=== PATIENT | male | born 1945 | race Caucasian/White ===

== ENCOUNTER → 2016-12-13 | Outpatient (CLI) | payer MEDICARE, BC ==
[2016-12-13 12:02] LABS: Anion Gap 7 mmol/L; Blood Urea Nitrogen 11 mg/dL (9-20); Calcium 10.2 mg/dL (8.4-10.2); Carbon Dioxide 29 mmol/L (22-30); Chloride 108 mmol/L (98-107); Glucose 124 mg/dL (74-99); Lithium 1.1 mmol/L; Non-African American GFR(MDRD) >60 (>60 ml/min/1.73 sqM); Phosphorous 3.1 mg/dL (2.5-4.5); Sodium 144 mmol/L (137-145)
== END | disposition home or self-care (01) ==
LOC: LABWHC1 06:41
PROVIDERS: ATTEND Psychiatry & Neurology Psychiatry
DX: E78.5 Hyperlipidemia, unspecified (principal); G40.909 Epilepsy, unspecified, not intractable, without status epilepticus; E03.9 Hypothyroidism, unspecified; F31.89 Other bipolar disorder
CPT/HCPCS: 36415; 80069; 80178; 84439; 84443

== ENCOUNTER → 2017-04-08 | Outpatient (CLI) | payer MEDICARE, BC ==
--- NOTE | 2017-04-08 11:18 | XR ---
EXAMINATION TYPE: XR chest 2V DATE OF EXAM: 04/08/2017 COMPARISON: NONE INDICATION: Nicotine dependence, DrAbdoul heard wheezing TECHNIQUE: Frontal and lateral views of the chest are obtained. FINDINGS: The heart size is normal. The pulmonary vasculature is normal. The lungs are clear. There is hyperinflation flattening the diaphragms and increased retrosternal ai rspace compatible with emphysematous change. IMPRESSION: 1. Findings suggestive for COPD. 2. No acute pulmonary process.
== END | disposition home or self-care (01) ==
LOC: RADXRMAIN 10:50
PROVIDERS: ATTEND Physician Assistant
DX: F17.200 Nicotine dependence, unspecified, uncomplicated (principal)
CPT/HCPCS: 71020

== ENCOUNTER 2017-04-11 09:04 | Emergency (ER) | payer MEDICARE, BC ==
[2017-04-11 09:20] VITALS: RESP 18; TEMP 96.9
[2017-04-11 10:51] LABS: Appearance,Urine Clear (Clear); Basophils # (A) 0.1 k/uL (0-0.2); Basophils % (A) 1 %; Bilirubin,Urine Negative (Negative); CH 32.7; CHCM 35.4; Eosinophils # (A) 0.2 k/uL (0-0.7); Eosinophils % (A) 3 %; Glucose,Urine (UA) Negative (Negative); HCT 47.8 % (39.0-53.0); HDW 2.66; HGB 16.3 gm/dL (13.0-17.5); Ketones,Urine Negative (Negative); Leukocyte Esterase,Urine Negative (Negative); Luc # (Auto) 0.15; Luc % (Auto) 2; Lymphocytes # (A) 1.8 k/uL (1.0-4.8); Lymphocytes % (A) 25 %; MCH 31.6 pg (25.0-35.0); MCHC 34.1 g/dL (31.0-37.0); MCV 92.8 fL (80.0-100.0); Mean Platelet Volume 9.9; Monocytes # (A) 0.5 k/uL (0-1.0); Monocytes % (A) 7 %; Neutrophils # (A) 4.5 k/uL (1.3-7.7); Neutrophils % (A) 62 %; Nitrite,Urine Negative (Negative); PH, Urine 5.5 (5.0-8.0); Protein,Urine Negative (Negative); RBC 5.15 m/uL (4.30-5.90); RDW 13.4 % (11.5-15.5); Specific Gravity,Urine 1.011 (1.001-1.035); UA Billing (MACRO vs. MICRO) CHEM; Urobilinogen,Urine <2.0 mg/dL (<2.0); WBC 7.2 k/uL (3.8-10.6); WBC (Perox) 6.56
[2017-04-11 11:02] LABS: ALT 33 U/L (21-72); AST 21 U/L (17-59); Alkaline Phosphatase 53 U/L (38-126); Anion Gap 11 mmol/L; Blood Urea Nitrogen 12 mg/dL (9-20); Carbon Dioxide 20 mmol/L (22-30); Chloride 110 mmol/L (98-107); Glucose 72 mg/dL (74-99); Non-African American GFR(MDRD) >60 (>60 ml/min/1.73 sqM); Potassium 4.4 mmol/L (3.5-5.1); Sodium 141 mmol/L (137-145); Total Bilirubin 0.5 mg/dL (0.2-1.3); Total Protein 7.2 g/dL (6.3-8.2)
--- NOTE | 2017-04-11 11:21 | ED ---
General Adult HPI - General Chief complaint: Psychiatric Symptoms Stated complaint: unable to sleep x 6 days, body aches Time Seen by Provider: 04/11/17 09:41 Source: patient, family Mode of arrival: ambulatory Limitations: no limitations - History of Present Illness Initial comments: 71-year-old male with history of depression presents for evaluation of inability to sleep, depression, and suicidal ideation. Patient does have remote history of EtOH, he was diagnosed with diabetes and was told he cannot drink. This initially began in his depression symptoms. He's had these for years. Over the past 1 week he's had no more the one hour sleep daily. His been taking his medications as prescribed. He also reports suicidal ideation. There is no plan at this time. - Related Data Home Medications Medication Instructions Recorded Confirmed DULoxetine HCL [Cymbalta] 30 mg PO DAILY 04/11/17 04/11/17 [place] Carbonate 300 mg PO HS 04/11/17 04/11/17 Suvorexant [Belsomra] 15 mg PO HS 04/11/17 04/11/17 clonazePAM [KlonoPIN] 1 mg PO HS 04/11/17 04/11/17 glipiZIDE [Glucotrol] 10 mg PO DAILY 04/11/17 04/11/17 metFORMIN HCL [Glucophage] 850 mg PO BID 04/11/17 04/11/17 Allergies Allergy/AdvReac Type Severity Reaction Status Date / Time No Known Allergies Allergy Verified 04/11/17 09:46 Review of Systems ROS Statement: Those systems with pertinent positive or pertinent negative responses have been documented in the HPI. ROS Other: All systems not noted in ROS Statement are negative. Past Medical History Past Medical History: Diabetes Mellitus History of Any Multi-Drug Resistant Organisms: None Reported Past Surgical History: No Surgical Hx Reported Past Psychological History: Depression Smoking Status: Current every day smoker Past Alcohol Use History: None Reported Past Drug Use History: None Reported General Exam Limitations: no limitations General appearance: alert, in no apparent distress Head exam: Present: atraumatic, normocephalic Eye exam: Present: normal appearance, PERRL, EOMI ENT exam: Present: normal exam Neck exam: Present: normal inspection. Absent: tenderness, meningismus Respiratory exam: Present: normal lung sounds bilaterally. Absent: respiratory distress Cardiovascular Exam: Present: regular rate, normal rhythm GI/Abdominal exam: Present: soft. Absent: distended, tenderness Extremities exam: Present: normal inspection, full ROM, normal capillary refill. Absent: pedal edema Back exam: Present: normal inspection Neurological exam: Present: alert, oriented X3, CN II-XII intact. Absent: motor sensory deficit Psychiatric exam: Present: normal affect, depressed, suicidal ideation Skin exam: Present: warm, dry. Absent: cyanosis, diaphoretic Course Vital Signs 04/11/17 04/11/17 09:16 11:02 Temperature 96.9 F L Pulse Rate 72 64 Respiratory 18 18 Rate Blood Pressure 158/69 127/61 O2 Sat by Pulse 96 99 Oximetry - Reevaluation(s) Reevaluation #1: 04/11/17 11:21 Patient is currently medically cleared awaiting EPS evaluation. Medical Decision Making - Medical Decision Making 71-year-old male presented for evaluation depression, suicidal ideation, decreased ability to sleep. Patient was evaluated by EPS. He does not meet inpatient criteria. On reevaluation the patient is denying suicidal ideation. States he just wants to sleep. He was producing taking clonazepam and trazodone. These medications were adjusted. His been sleeping much less. Patient does have psychiatric outpatient follow-up. He will continue his clonazepam and trazodone for sleep. He will follow-up with both his primary care physician and his his psychiatrist. Patient and his brother are agreeable with this plan. - Lab Data Result diagrams: 04/11/17 10:39 04/11/17 10:39 Lab Results 04/11/17 04/11/17 04/11/17 Range/Units 10:39 10:39 10:39 WBC 7.2 (3.8-10.6) k/uL RBC 5.15 (4.30-5.90) m/uL Hgb 16.3 (13.0-17.5) gm/dL Hct 47.8 (39.0-53.0) % MCV 92.8 (80.0-100.0) fL MCH 31.6 (25.0-35.0) pg MCHC 34.1 (31.0-37.0) g/dL RDW 13.4 (11.5-15.5) % Plt Count 198 (150-450) k/uL Neutrophils % 62 % Lymphocytes % 25 % Monocytes % 7 % Eosinophils % 3 % Basophils % 1 % Neutrophils # 4.5 (1.3-7.7) k/uL Lymphocytes # 1.8 (1.0-4.8) k/uL Monocytes # 0.5 (0-1.0) k/uL Eosinophils # 0.2 (0-0.7) k/uL Basophils # 0.1 (0-0.2) k/uL Sodium 141 (137-145) mmol/L Potassium 4.4 (3.5-5.1) mmol/L Chloride 110 H (98-107) mmol/L Carbon Dioxide 20 L (22-30) mmol/L Anion Gap 11 mmol/L BUN 12 (9-20) mg/dL Creatinine 0.76 (0.66-1.25) mg/dL Est GFR (MDRD) Af Amer >60 (>60 ml/min/1.73 sqM) Est GFR (MDRD) Non-Af >60 (>60 ml/min/1.73 sqM) Glucose 72 L (74-99) mg/dL Calcium 10.0 (8.4-10.2) mg/dL Total Bilirubin 0.5 (0.2-1.3) mg/dL AST 21 (17-59) U/L ALT 33 (21-72) U/L Alkaline Phosphatase 53 (38-126) U/L Total Protein 7.2 (6.3-8.2) g/dL Albumin 4.5 (3.5-5.0) g/dL Urine Color Yellow Urine Appearance Clear (Clear) Urine pH 5.5 (5.0-8.0) Ur Specific [place] 1.011 (1.001-1.035) Urine Protein Negative (Negative) Urine Glucose (UA) Negative (Negative) Urine Ketones Negative (Negative) Urine Blood Negative (Negative) Urine Nitrite Negative (Negative) Urine Bilirubin Negative (Negative) Urine Urobilinogen <2.0 (<2.0) mg/dL Ur Leukocyte Esterase Negative (Negative) Urine Opiates Screen Detected H (NotDetected) Ur Oxycodone Screen Not Detected (NotDetected) Urine Methadone Screen Not Detected (NotDetected) Ur Propoxyphene Screen Not Detected (NotDetected) Ur Barbiturates Screen Not Detected (NotDetected) U Tricyclic Antidepress Not Detected (NotDetected) Ur Phencyclidine Scrn Not Detected (NotDetected) Ur Amphetamines Screen Not Detected (NotDetected) U Methamphetamines Scrn Not Detected (NotDetected) U Benzodiazepines Scrn Not Detected (NotDetected) Urine Cocaine Screen Not Detected (NotDetected) U Marijuana (THC) Screen Not Detected (NotDetected) Disposition Clinical Impression: Depression Disposition: HOME SELF-CARE Condition: Stable Referrals: Alex Hardin MD [Primary Care Provider] - 1-2 days Time of Disposition: 13:54
[2017-04-11 13:49] VITALS: BP 161/70; PULSE 69
== END 2017-04-11 14:11 | disposition home or self-care (01) ==
LOC: EC 09:04
DX: F32.9 Major depressive disorder, single episode, unspecified (principal); E11.9 Type 2 diabetes mellitus without complications; F17.200 Nicotine dependence, unspecified, uncomplicated; Z79.84 Long term (current) use of oral hypoglycemic drugs; Z79.899 Other long term (current) drug therapy
CPT/HCPCS: 36415; 80053; 80306; 81003; 82075; 85025; 99284

== ENCOUNTER → 2017-10-01 | Outpatient (CLI) | payer MEDICARE, BC ==
[2017-10-01 16:53] LABS: Albumin 4.3 g/dL (3.5-5.0); Anion Gap 11 mmol/L; Blood Urea Nitrogen 17 mg/dL (9-20); Calcium 10.4 mg/dL (8.4-10.2); Carbon Dioxide 27 mmol/L (22-30); Chloride 107 mmol/L (98-107); Glucose 118 mg/dL (74-99); Lithium 0.9 mmol/L; Phosphorus 3.4 mg/dL (2.5-4.5); Potassium 5.1 mmol/L (3.5-5.1); Sodium 145 mmol/L (137-145)
[2017-10-01 17:07] LABS: T4, Free (Free Thyroxine) 0.88 ng/dL (0.78-2.19)
== END | disposition home or self-care (01) ==
LOC: LABWHC1 15:41
PROVIDERS: ATTEND Psychiatry & Neurology Psychiatry
DX: F33.1 Major depressive disorder, recurrent, moderate (principal); Z79.899 Other long term (current) drug therapy
CPT/HCPCS: 36415; 80069; 80178; 84439; 84443

== ENCOUNTER 2019-12-15 09:40 | Inpatient (IN) | payer MEDICARE ==
[2019-12-15] MEDS ORDERED: SODIUM CHLORIDE 0.9% 1,000 ML IV ONE (09:45)
--- NOTE | 2019-12-15 09:58 | ED ---
General Adult HPI - General Stated complaint: Altered Mental Status Time Seen by Provider: 12/15/19 09:45 Source: patient, RN notes reviewed, old records reviewed - History of Present Illness Initial comments: 74-year-old male history of bipolar depression presenting for increased confusion and altered mental status. According to the patient's brother and EMS he symptoms began approximately 24 hours ago. He has not been eating or drinking well for the past several days. History limited secondary to patient's mental status as well as a language barrier. Patient able to answer simple questions and follows some commands. He is denying any pain. There is no reported history of vomiting or diarrhea, no reported fever. - Related Data Home Medications Medication Instructions Recorded Confirmed DULoxetine HCL [Cymbalta] 30 mg PO DAILY 04/11/17 04/11/17 [place] Carbonate 300 mg PO HS 04/11/17 04/11/17 Suvorexant [Belsomra] 15 mg PO HS 04/11/17 04/11/17 clonazePAM [KlonoPIN] 1 mg PO HS 04/11/17 04/11/17 glipiZIDE [Glucotrol] 10 mg PO DAILY 04/11/17 04/11/17 metFORMIN HCL [Glucophage] 850 mg PO BID 04/11/17 04/11/17 Allergies Allergy/AdvReac Type Severity Reaction Status Date / Time No Known Allergies Allergy Verified 04/11/17 09:46 Review of Systems ROS Statement: Those systems with pertinent positive or pertinent negative responses have been documented in the HPI. ROS Other: All systems not noted in ROS Statement are negative. Limitations: ROS unobtainable due to patients medical condition Past Medical History Past Medical History: Diabetes Mellitus History of Any Multi-Drug Resistant Organisms: None Reported Past Surgical History: No Surgical Hx Reported Past Psychological History: Depression Smoking Status: Current every day smoker Past Alcohol Use History: None Reported Past Drug Use History: None Reported General Exam General appearance: in no apparent distress, lethargic Head exam: Present: atraumatic, normocephalic Eye exam: Present: normal appearance, PERRL, EOMI. Absent: scleral icterus, nystagmus ENT exam: Present: mucous membranes dry Neck exam: Present: full ROM. Absent: meningismus Respiratory exam: Present: normal lung sounds bilaterally. Absent: respiratory distress, wheezes Cardiovascular Exam: Present: regular rate. Absent: normal rhythm, bradycardia, tachycardia GI/Abdominal exam: Present: soft. Absent: distended, tenderness, guarding, rebound Extremities exam: Present: normal inspection, normal capillary refill. Absent: pedal edema Neurological exam: Absent: oriented X3, motor sensory deficit (Patient has normal domestic housekeeper strength bilaterally, he was ambulatory on scene by EMS, there is no apparent focal neurological findings.) Course Vital Signs 12/15/19 12/15/19 09:52 11:17 Temperature 98.9 F Pulse Rate 64 Respiratory 20 20 Rate Blood Pressure 153/62 120/66 O2 Sat by Pulse 98 100 Oximetry EKG Findings - EKG Comments: EKG Findings:: EKG: Sinus bradycardia, rate of 58, SD interval 188, QRS duration 82, QTC 422, no ST segment elevation. Medical Decision Making - Medical Decision Making 74-year-old male with 24 hours of altered mental status per patient is somewhat agitated, confused, with the addition of a language barrier. Unknown patient's baseline. He has a nonfocal exam moving all extremities. Head CT is performed which is negative for acute intracranial hemorrhage or mass effect. He has bilateral hygromas. Patient has normal CBC, normal electrolytes, normal kidney function, mild lactic acidosis of 2.4, ketones in the urine this is hemorrhagic sample this was on straight cath in the emergency department. No signs of i nfection. Chest x-ray showing COPD. Patient will be admitted for close monitoring, further evaluation. Case discussed with Dr. Blancas who will admit. - Lab Data Result diagrams: 12/15/19 09:50 12/15/19 09:50 Lab Results 12/15/19 12/15/19 12/15/19 Range/Units 09:50 09:50 09:50 WBC 6.1 (3.8-10.6) k/uL RBC 4.34 (4.30-5.90) m/uL Hgb 14.0 (13.0-17.5) gm/dL Hct 42.3 (39.0-53.0) % MCV 97.5 (80.0-100.0) fL MCH 32.3 (25.0-35.0) pg MCHC 33.1 (31.0-37.0) g/dL RDW 12.3 (11.5-15.5) % Plt Count 136 L (150-450) k/uL Neutrophils % 80 % Lymphocytes % 13 % Monocytes % 6 % Eosinophils % 1 % Basophils % 0 % Neutrophils # 4.9 (1.3-7.7) k/uL Lymphocytes # 0.8 L (1.0-4.8) k/uL Monocytes # 0.4 (0-1.0) k/uL Eosinophils # 0.0 (0-0.7) k/uL Basophils # 0.0 (0-0.2) k/uL Manual Slide Review Performed Large Platelets Present PT 11.2 (9.0-12.0) sec INR 1.1 (<1.2) APTT 22.8 (22.0-30.0) sec VBG pH (7.31-7.41) VBG pCO2 (37-51) mmHg VBG HCO3 (24-28) mmol/L Sodium 140 (137-145) mmol/L Potassium 4.6 (3.5-5.1) mmol/L Chloride 107 (98-107) mmol/L Carbon Dioxide 27 (22-30) mmol/L Anion Gap 6 mmol/L BUN 20 (9-20) mg/dL Creatinine 1.02 (0.66-1.25) mg/dL Est GFR (CKD-EPI)AfAm 82 (>60 ml/min/1.73 sqM) Est GFR (CKD-EPI)NonAf 71 (>60 ml/min/1.73 sqM) Glucose 150 H (74-99) mg/dL Plasma Lactic Acid [place] (0.7-2.0) mmol/L Calcium 10.2 (8.4-10.2) mg/dL Magnesium 1.8 (1.6-2.3) mg/dL Total Bilirubin 0.8 (0.2-1.3) mg/dL AST 17 (17-59) U/L ALT 14 (4-49) U/L Alkaline Phosphatase 54 (38-126) U/L Ammonia (<30) umol/L Troponin I (0.000-0.034) ng/mL Total Protein 6.8 (6.3-8.2) g/dL Albumin 4.2 (3.5-5.0) g/dL Urine Color Urine Appearance (Clear) Urine pH (5.0-8.0) Ur Specific [place] (1.001-1.035) Urine Protein (Negative) Urine Glucose (UA) (Negative) Urine Ketones (Negative) Urine Blood (Negative) Urine Nitrite (Negative) Urine Bilirubin (Negative) Urine Urobilinogen (<2.0) mg/dL Ur Leukocyte Esterase (Negative) Urine RBC (0-5) /hpf Urine WBC (0-5) /hpf Ur Squamous Epith Cells (0-4) /hpf Urine Bacteria (None) /hpf Urine Mucus (None) /hpf Urine Opiates Screen (NotDetected) Ur Oxycodone Screen (NotDetected) Urine Methadone Screen (NotDetected) Ur Propoxyphene Screen (NotDetected) Ur Barbiturates Screen (NotDetected) U Tricyclic Antidepress (NotDetected) Ur Phencyclidine Scrn (NotDetected) Ur Amphetamines Screen (NotDetected) U Methamphetamines Scrn (NotDetected) U Benzodiazepines Scrn (NotDetected) [place] 0.8 mmol/L Urine Cocaine Screen (NotDetected) U Marijuana (THC) Screen (NotDetected) Serum Alcohol <10 mg/dL Coronavirus (PCR) (Not Detectd) 12/15/19 12/15/19 12/15/19 Range/Units 09:50 09:50 09:50 WBC (3.8-10.6) k/uL RBC (4.30-5.90) m/uL Hgb (13.0-17.5) gm/dL Hct (39.0-53.0) % MCV (80.0-100.0) fL MCH (25.0-35.0) pg MCHC (31.0-37.0) g/dL RDW (11.5-15.5) % Plt Count (150-450) k/uL Neutrophils % % Lymphocytes % % Monocytes % % Eosinophils % % Basophils % % Neutrophils # (1.3-7.7) k/uL Lymphocytes # (1.0-4.8) k/uL Monocytes # (0-1.0) k/uL Eosinophils # (0-0.7) k/uL Basophils # (0-0.2) k/uL Manual Slide Review Large Platelets PT (9.0-12.0) sec INR (<1.2) APTT (22.0-30.0) sec VBG pH (7.31-7.41) VBG pCO2 (37-51) mmHg VBG HCO3 (24-28) mmol/L Sodium (137-145) mmol/L Potassium (3.5-5.1) mmol/L Chloride (98-107) mmol/L Carbon Dioxide (22-30) mmol/L Anion Gap mmol/L BUN (9-20) mg/dL Creatinine (0.66-1.25) mg/dL Est GFR (CKD-EPI)AfAm (>60 ml/min/1.73 sqM) Est GFR (CKD-EPI)NonAf (>60 ml/min/1.73 sqM) Glucose (74-99) mg/dL Plasma Lactic Acid [place] 2.4 H* (0.7-2.0) mmol/L Calcium (8.4-10.2) mg/dL Magnesium (1.6-2.3) mg/dL Total Bilirubin (0.2-1.3) mg/dL AST (17-59) U/L ALT (4-49) U/L Alkaline Phosphatase (38-126) U/L Ammonia <9 (<30) umol/L Troponin I <0.012 (0.000-0.034) ng/mL Total Protein (6.3-8.2) g/dL Albumin (3.5-5.0) g/dL Urine Color Urine Appearance (Clear) Urine pH (5.0-8.0) Ur Specific [place] (1.001-1.035) Urine Protein (Negative) Urine Glucose (UA) (Negative) Urine Ketones (Negative) Urine Blood (Negative) Urine Nitrite (Negative) Urine Bilirubin (Negative) Urine Urobilinogen (<2.0) mg/dL Ur Leukocyte Esterase (Negative) Urine RBC (0-5) /hpf Urine WBC (0-5) /hpf Ur Squamous Epith Cells (0-4) /hpf Urine Bacteria (None) /hpf Urine Mucus (None) /hpf Urine Opiates Screen (NotDetected) Ur Oxycodone Screen (NotDetected) Urine Methadone Screen (NotDetected) Ur Propoxyphene Screen (NotDetected) Ur Barbiturates Screen (NotDetected) U Tricyclic Antidepress (NotDetected) Ur Phencyclidine Scrn (NotDetected) Ur Amphetamines Screen (NotDetected) U Methamphetamines Scrn (NotDetected) U Benzodiazepines Scrn (NotDetected) [place] mmol/L Urine Cocaine Screen (NotDetected) U Marijuana (THC) Screen (NotDetected) Serum Alcohol mg/dL Coronavirus (PCR) Not Detected (Not Detectd) 12/15/19 12/15/19 Range/Units 09:50 10:15 WBC (3.8-10.6) k/uL RBC (4.30-5.90) m/uL Hgb (13.0-17.5) gm/dL Hct (39.0-53.0) % MCV (80.0-100.0) fL MCH (25.0-35.0) pg MCHC (31.0-37.0) g/dL RDW (11.5-15.5) % Plt Count (150-450) k/uL Neutrophils % % Lymphocytes % % Monocytes % % Eosinophils % % Basophils % % Neutrophils # (1.3-7.7) k/uL Lymphocytes # (1.0-4.8) k/uL Monocytes # (0-1.0) k/uL Eosinophils # (0-0.7) k/uL Basophils # (0-0.2) k/uL Manual Slide Review Large Platelets PT (9.0-12.0) sec INR (<1.2) APTT (22.0-30.0) sec VBG pH 7.48 H (7.31-7.41) VBG pCO2 32 L (37-51) mmHg VBG HCO3 23 L (24-28) mmol/L Sodium (137-145) mmol/L Potassium (3.5-5.1) mmol/L Chloride (98-107) mmol/L Carbon Dioxide (22-30) mmol/L Anion Gap mmol/L BUN (9-20) mg/dL Creatinine (0.66-1.25) mg/dL Est GFR (CKD-EPI)AfAm (>60 ml/min/1.73 sqM) Est GFR (CKD-EPI)NonAf (>60 ml/min/1.73 sqM) Glucose (74-99) mg/dL Plasma Lactic Acid [place] (0.7-2.0) mmol/L Calcium (8.4-10.2) mg/dL Magnesium (1.6-2.3) mg/dL Total Bilirubin (0.2-1.3) mg/dL AST (17-59) U/L ALT (4-49) U/L Alkaline Phosphatase (38-126) U/L Ammonia (<30) umol/L Troponin I (0.000-0.034) ng/mL Total Protein (6.3-8.2) g/dL Albumin (3.5-5.0) g/dL Urine Color Yellow Urine Appearance Clear (Clear) Urine pH 7.0 (5.0-8.0) Ur Specific [place] 1.015 (1.001-1.035) Urine Protein Trace H (Negative) Urine Glucose (UA) Negative (Negative) Urine Ketones 1+ H (Negative) Urine Blood Moderate H (Negative) Urine Nitrite Negative (Negative) Urine Bilirubin Negative (Negative) Urine Urobilinogen <2.0 (<2.0) mg/dL Ur Leukocyte Esterase Negative (Negative) Urine RBC >182 H (0-5) /hpf Urine WBC 3 (0-5) /hpf Ur Squamous Epith Cells <1 (0-4) /hpf Urine Bacteria Rare H (None) /hpf Urine Mucus Rare H (None) /hpf Urine Opiates Screen Not Detected (NotDetected) Ur Oxycodone Screen Not Detected (NotDetected) Urine Methadone Screen Not Detected (NotDetected) Ur Propoxyphene Screen Not Detected (NotDetected) Ur Barbiturates Screen Not Detected (NotDetected) U Tricyclic Antidepress Not Detected (NotDetected) Ur Phencyclidine Scrn Not Detected (NotDetected) Ur Amphetamines Screen Not Detected (NotDetected) U Methamphetamines Scrn Not Detected (NotDetected) U Benzodiazepines Scrn Not Detected (NotDetected) [place] mmol/L Urine Cocaine Screen Not Detected (NotDetected) U Marijuana (THC) Screen Not Detected (NotDetected) Serum Alcohol mg/dL Coronavirus (PCR) (Not Detectd) Disposition Clinical Impression: Altered mental status, Dehydration Disposition: ADMITTED IP TO THIS HOSP Condition: Stable Is patient prescribed a controlled substance at d/c from ED?: No Referrals: Alex Hardin MD [Primary Care Provider] - 1-2 days Decision to Admit Reason: Admit from EC Decision Date: 12/15/19 Decision Time: 11:39
[2019-12-15 10:02] LABS: VBG PH 7.48 (7.31-7.41)
[2019-12-15 10:03] LABS: Basophils % (A) 0 %; Eosinophils % (A) 1 %; HCT 42.3 % (39.0-53.0); Lymphocytes # (A) 0.8 k/uL (1.0-4.8); Lymphocytes % (A) 13 %; MCH 32.3 pg (25.0-35.0); MCHC 33.1 g/dL (31.0-37.0); MCV 97.5 fL (80.0-100.0); Mean Platelet Volume 11.2; Monocytes # (A) 0.4 k/uL (0-1.0); Monocytes % (A) 6 %; Neutrophils # (A) 4.9 k/uL (1.3-7.7); Neutrophils % (A) 80 %; Platelet Count 136 k/uL (150-450); RBC 4.34 m/uL (4.30-5.90); RDW 12.3 % (11.5-15.5); WBC 6.1 k/uL (3.8-10.6)
[2019-12-15 10:13] LABS: Lactic Acid, Venous 2.4 mmol/L (0.7-2.0)
[2019-12-15 10:14] LABS: ALT 14 U/L (4-49); AST 17 U/L (17-59); African American GFR (CKD) 82 (>60 ml/min/1.73 sqM); Albumin 4.2 g/dL (3.5-5.0); Alcohol <10 mg/dL; Alkaline Phosphatase 54 U/L (38-126); Anion Gap 6 mmol/L; Blood Urea Nitrogen 20 mg/dL (9-20); Calcium 10.2 mg/dL (8.4-10.2); Carbon Dioxide 27 mmol/L (22-30); Chloride 107 mmol/L (98-107); Glucose 150 mg/dL (74-99); Magnesium 1.8 mg/dL (1.6-2.3); Non-African American GFR(CKD) 71 (>60 ml/min/1.73 sqM); Potassium 4.6 mmol/L (3.5-5.1); Sodium 140 mmol/L (137-145); Total Bilirubin 0.8 mg/dL (0.2-1.3); Total Protein 6.8 g/dL (6.3-8.2)
[2019-12-15 10:18] LABS: INR 1.1 (<1.2); Partial Thromboplastin Time 22.8 sec (22.0-30.0); Prothrombin Time 11.2 sec (9.0-12.0)
[2019-12-15 10:23] LABS: Large Platelets Present
[2019-12-15 10:37] LABS: Lithium 0.8 mmol/L
--- NOTE | 2019-12-15 10:44 | XR ---
EXAMINATION TYPE: XR chest 1V portable DATE OF EXAM: 12/15/2019 Comparison: 04/08/2017 Clinical History: 74-year-old male wheezing, smoker, nicotine dependence, altered mental status Findings: The heart is normal size. Aorta and pulmonary vasculature within normal limits. Mild interstitial pro minence and mild hyperinflation. No halina consolidation or pleural effusion. Some cortical irregulari ty along the right anterior fifth rib possibly from a old fracture deformity. Impression: COPD. Some accentuation of the interstitium could reflect superimposed bronchitis or asthma. No focal infiltrate seen.
--- NOTE | 2019-12-15 10:48 | CT ---
EXAMINATION TYPE: CT brain wo con DATE OF EXAM: 12/15/2019 COMPARISON: None HISTORY: altered mental status CT DLP: 2104.9 mGycm Automated exposure control for dose reduction was used. TECHNIQUE: CT scan of the head is performed without contrast. FINDINGS: There is no acute intracranial hemorrhage or midline shift identified. There are bilatera l extra-axial fluid collections that are CSF attenuated measuring up to 1.1 cm on the left and 0.6 cm on the right on image 27. These are most compatible with chronic subdural hygromas. There is diffuse ventricular and sulcal prominence consistent with diffuse age-related cerebral atrophy. There is lo w-attenuation in the periventricular white matter consistent with chronic small vessel ischemic davis e. The globes are intact. Extensive polypoid mucosal thickening in the posterior right nasopharynx a nd within the ethmoid sinuses. Moderate polypoid thickening of the maxillary and sphenoid sinuses and hypoplasia of the frontal sinuses. Mastoid air cells are well aerated. IMPRESSION: 1. No acute intracranial hemorrhage or midline shift. 2. Chronic CSF attenuated bilateral subdural hygromas, greater on the left than right. 3. Diffuse age-related cerebral atrophy and mild burden nonspecific white matter change most commonly on the basis of chronic microangiopathy. Line 4. Extensive polypoid mucosal thickening in the poste rior right nasopharynx. Differential diagnosis of nasopharyngeal mass. ENT consultation and/or direct visualization are recommended. Overall moderate pansinusitis.
[2019-12-15] MEDS ORDERED: LORazepam 2 MG/ML INJ IV STA ×2 (11:07→11:40)
[2019-12-15 11:12] LABS: Appearance,Urine Clear (Clear); Bacteria,Urine Rare /hpf; Bilirubin,Urine Negative (Negative); Blood,Urine Moderate (Negative); Color,Urine Yellow; Glucose,Urine (UA) Negative (Negative); Ketones,Urine 1+ (Negative); Leukocyte Esterase,Urine Negative (Negative); Mucus,Urine Rare /hpf; Nitrite,Urine Negative (Negative); Protein,Urine Trace (Negative); RBC,Urine >182 /hpf (0-5); Specific Gravity,Urine 1.015 (1.001-1.035); Squamous Epithelial Cell,Urine <1 /hpf (0-4); Urobilinogen,Urine <2.0 mg/dL (<2.0); WBC,Urine 3 /hpf (0-5)
[2019-12-15 11:31] LABS: Amphetamine Screen,Urine Not Detected (NotDetected); Barbiturate Screen,Urine Not Detected (NotDetected); Benzodiazepines Screen,Urine Not Detected (NotDetected); Cocaine Screen,Urine Not Detected (NotDetected); Methadone Screen, Urine Not Detected (NotDetected); Opiate Screen,Urine Not Detected (NotDetected); Oxycodone Screen, Urine Not Detected (NotDetected); Phencyclidine Screen,Urine Not Detected (NotDetected); Tricyclic Antidepressant,Urine Not Detected (NotDetected); Urn Cannabinoid Scrn Not Detected (NotDetected)
[2019-12-15] MEDS ORDERED: LORazepam 2 MG/ML INJ IV PRN (11:39)
[2019-12-15] MEDS ORDERED: NALOXONE 0.4 MG/ML 1 ML VIAL IV PRN (11:39)
[2019-12-15] MEDS ORDERED: HALOPERIDOL LACTATE 5 MG/ML 1 ML VIAL IVP PRN (11:46)
--- NOTE | 2019-12-15 12:21 | P.HPIM ---
History of Present Illness Patient is 74-year-old male with history of bipolar disorder in with altered mental status patient is agitated when he arrived patient was given Ativan after which his agitation were sent patient urine drug screen is negative and no evidences of infection UA is bit abnormal with some leukocyte esterase does have ketones in the urine. Patient appears to be clinically quite a bit dehydrated with dry mucous membranes and dry skin. Unable to obtain any history from the patient. Patient doesn't have any fever chills patient uses metformin at home patient does have some lactic acidosis secondary to metformin. Patient is supp osed to be on antidepressant along with the lithium for bipolar disorder at home his late him levels are 0.8 appears to be taking lithium at home. She does agitated and pretty strong moving all 4 limbs doesn't appear to have any focal weakness CT of the head showed a diffuse age-related atrophy. Review of Systems Unable to obtain due to his clinical condition Past Medical History Past Medical History: Diabetes Mellitus History of Any Multi-Drug Resistant Organisms: None Reported Past Surgical History: No Surgical Hx Reported Past Psychological History: Depression Smoking Status: Current every day smoker Past Alcohol Use History: None Reported Past Drug Use History: None Reported Medications and Allergies Home Medications Medication Instructions Recorded Confirmed Type DULoxetine HCL [Cymbalta] 30 mg PO DAILY 04/11/17 04/11/17 History [place] Carbonate 300 mg PO HS 04/11/17 04/11/17 History Suvorexant [Belsomra] 15 mg PO HS 04/11/17 04/11/17 History clonazePAM [KlonoPIN] 1 mg PO HS 04/11/17 04/11/17 History glipiZIDE [Glucotrol] 10 mg PO DAILY 04/11/17 04/11/17 History metFORMIN HCL [Glucophage] 850 mg PO BID 04/11/17 04/11/17 History Allergies Allergy/AdvReac Type Severity Reaction Status Date / Time No Known Allergies Allergy Verified 04/11/17 09:46 Physical Exam Vitals: Vital Signs Temp Pulse Resp BP Pulse Ox 12/15/19 12:04 86 16 133/79 99 12/15/19 11:17 64 20 120/66 100 12/15/19 09:52 98.9 F 20 153/62 98 Intake and Output 12/14/19 12/15/19 12/15/19 22:59 06:59 14:59 Other: Weight 63.503 kg PHYSICAL EXAMINATION: GENERAL: Patient is quite a bit agitated thin built dry mucous membranes HEENT: Pupils are round and equally reacting to light. EOMI. No scleral icterus. No conjunctival pallor. Normocephalic, atraumatic. No pharyngeal erythema. No thyromegaly. CARDIOVASCULAR: S1 and S2 present. No murmurs, rubs, or gallops. PULMONARY: Chest is clear to auscultation, no wheezing or crackles. ABDOMEN: Soft, nontender, nondistended, normoactive bowel sounds. No palpable organomegaly. MUSCULOSKELETAL: No joint swelling or deformity. EXTREMITIES: No cyanosis, clubbing, or pedal edema. NEUROLOGICAL: Moving all 4 limbs unable to assess due to agitation. SKIN: No rashes. Results CBC & Chem 7: 12/15/19 09:50 12/15/19 09:50 Labs: Abnormal Lab Results - Last 24 Hours (Table) 12/15/19 12/15/19 12/15/19 Range/Units 09:50 09:50 09:50 Plt Count 136 L (150-450) k/uL Lymphocytes # 0.8 L (1.0-4.8) k/uL VBG pH (7.31-7.41) VBG pCO2 (37-51) mmHg VBG HCO3 (24-28) mmol/L Glucose 150 H (74-99) mg/dL Plasma Lactic Acid Pancho 2.4 H* (0.7-2.0) mmol/L Urine Protein (Negative) Urine Ketones (Negative) Urine Blood (Negative) Urine RBC (0-5) /hpf Urine Bacteria (None) /hpf Urine Mucus (None) /hpf 12/15/19 12/15/19 Range/Units 09:50 10:15 Plt Count (150-450) k/uL Lymphocytes # (1.0-4.8) k/uL VBG pH 7.48 H (7.31-7.41) VBG pCO2 32 L (37-51) mmHg VBG HCO3 23 L (24-28) mmol/L Glucose (74-99) mg/dL Plasma Lactic Acid Pancho (0.7-2.0) mmol/L Urine Protein Trace H (Negative) Urine Ketones 1+ H (Negative) Urine Blood Moderate H (Negative) Urine RBC >182 H (0-5) /hpf Urine Bacteria Rare H (None) /hpf Urine Mucus Rare H (None) /hpf Assessment and Plan Plan: Altered mental status, agitation most probably because of psychosis. There may be scared competent of metabolic encephalopathy from dehydration patient will be started on IV fluids. Psychiatrically will be consulted until then patient will be started on Haldol. No evidence of infection at this time patient has asymptomatic bacteriuria. Urine drug screen is negative -Acute renal failure secondary to dehydration and intravascular depletion probably secondary to poor by mouth intake, patient will be started on IV fluids patient received 1 L bolus -Ketonuria secondary to starvation ketosis IV fluids as mentioned above -lactic acidosis from metformin and dehydration expected to improve with IV fluids, metformin will be held -Type 2 diabetes mellitus patient will be started on sliding scale insulin DVT prophylaxis with subcutaneous heparin
[2019-12-15] MEDS ORDERED: HALOPERIDOL LACTATE 5 MG/ML 1 ML VIAL IM PRN ×2 (12:27→13:27)
[2019-12-15 12:53] LABS: Glucose,Whole Blood 139 mg/dL (75-99)
[2019-12-15] MEDS: SODIUM CHLORIDE 0.9% 1,000 ML IV SCH ×2 (13:28→20:58)
[2019-12-15] MEDS: INSULIN ASPART (NovoLOG) 100 UNIT/ML VIAL SQ SCH ×3 (13:29→21:11)
[2019-12-15] MEDS ORDERED: QUEtiapine 25 MG TAB PO STA (13:31)
--- NOTE | 2019-12-15 13:43 | P.CN ---
Psychiatric Consult - . Consult date: 12/15/19 Consult:: 12/15/19 13:32 IDENTIFYING DATA: This patient is a 74-year-old [place] male who presented with altered mental status and acute confusional changes brought in by family members. HISTORY OF PRESENT ILLNESS: The patient presented to the hospital earlier today with complaints by family members as patient has been more confused lately and been having altered mental status. Patient did have a language barriers and was unable to cooperate with interview upon arrival. Patient does have a notable history of bipolar disorder and is currently on Cymbalta and lithium. According to family as per ER report the patient had this acute onset of mental status changes within the past 24 hours before arrival and has been eating poorly and drinking poorly as well. Patient was given two PRN Ativan doses prior to being admitted to the medical floors. Patient had a CT of his head which showed no acute changes or hemorrhages however did show chronic subdural bilateral hygromas. Patient had a chest x-ray which showed COPD changes, lithium level was 0.8 on admission and did not have any UTI or any substances on UDS. Patient had a sitter at the bedside and patient was seen trying to move in the bed and attempting to get up out of the bed as he appeared to be restless. Patient was nonverbal with [facility] underwriter and did not follow any commands at all. Patient did appear to have for the most part closed eyes and some blinking and appeared to be thin and physically dehydrated and also was confused. Unable to assess homicidal or suicidal ideations intent or plan or visual or auditory hallucinations. PAST PSYCHIATRIC HISTORY: Patient apparently has a history of bipolar disorder and is currently on Cymbalta 30 mg daily, lithium 300 mg at night and Klonopin 1 mg at bedtime. Patient has not been admitted to the mental health unit at this hospital. PAST MEDICAL HISTORY: Diabetes mellitus and COPD. ALLERGIES: as per EMR. CHEMICAL DEPENDENCY HISTORY: as per HPI. FAMILY PSYCHIATRIC/SUBSTANCE USE HISTORY: Unable to assess SOCIAL HISTORY: Patient is of [place] dissent, apparently has difficulty with Ethiopian language. Was brought in by family members for concerns of altered mentation. Patient unable to give more details about social history. MENTAL STATUS EXAM: General Appearance: Patient appears to be thin/frail, stated age is lethargic yet appears to be restless and difficult to redirect. Patient appears to have fair hygiene and grooming wearing hospital gown with poor eye contact and appears to be blinking repeatedly. Behavior: Patient is restless in bed and attempting to get up several times, difficult to redirect. Speech: Nonverbal. Mood/Affect: Unable to assess. Suicidality/Homicidality: Unable to assess. Perceptions: Unable to assess. Though content/process: Unable to assess. Memory and concentration: Unable to assess due to altered mental status. Judgment and insight: poor IMPRESSIONS: Delirium possibly secondary to dehydration or medications. History of bipolar disorder PLAN: -At this time patient DOES NOT meet criteria for inpatient psychiatric admission however will continue to follow along to see if patient will meet criteria for psychiatric admission in the near future. -Patient DOES NOT have decision making capacity at this time and is unable to reason through and communicate/appreciate the risks, benefits and alternatives to treatment. -Delirium precautions recommended with patient including - avoiding use of narcotics and [employer] sedatives, limit anticholinergic medications when possible, frequent re-orientation, minimize use of restraints, open window shades during the day and close them at night -Would recommend the following medication changes/additions: Please avoid giving patient any steroids, benzodiazepines or opiates at this time as this will further exacerbate patient's altered mental status. Will re-start patient back on 300 mg of lithium daily at bedtime for mood stabilization, Cymbalta 30 mg daily for mood. Will start patient on 25 mg daily at bedtime of Seroquel with 1 dose of Seroquel now for agitation/psychosis. Changed Haldol IM to 2.5 mg every 6 hours whenever necessary for agitation/psychosis. -Continue 1:1 sitter for safety and orientation -Will continue to follow along, continue with treatment for dehydration and underlying medical comorbidities. -Please contact with any questions.
[2019-12-15 17:24] LABS: Glucose,Whole Blood 103 mg/dL (75-99)
[2019-12-15 20:37] LABS: Glucose,Whole Blood 95 mg/dL (75-99)
[2019-12-15] MEDS: LITHIUM CARBONATE 300 MG CAP PO SCH (20:50)
[2019-12-15] MEDS: HEPARIN SODIUM,PORCINE 5,000 UNIT/ML 1 ML VIAL SQ SCH (20:57)
[2019-12-15] MEDS ORDERED: QUEtiapine 25 MG TAB PO SCH (21:00)
[2019-12-16] MEDS: SODIUM CHLORIDE 0.9% 1,000 ML IV SCH (05:56)
[2019-12-16 06:56] LABS: Calcium 10.4 mg/dL (8.4-10.2); Potassium 4.3 mmol/L (3.5-5.1)
[2019-12-16 07:05] LABS: Glucose,Whole Blood 75 mg/dL (75-99)
[2019-12-16] MEDS: INSULIN ASPART (NovoLOG) 100 UNIT/ML VIAL SQ SCH ×4 (07:21→19:46)
[2019-12-16] MEDS: DULoxetine HCL 30 MG CAPSULE.DR PO SCH (07:44)
[2019-12-16] MEDS: HEPARIN SODIUM,PORCINE 5,000 UNIT/ML 1 ML VIAL SQ SCH ×2 (07:44→19:47)
[2019-12-16] MEDS: ACETAMINOPHEN TAB 325 MG TAB PO PRN (08:21)
[2019-12-16] MEDS ORDERED: DULoxetine HCL 20 MG CAPSULE.DR PO SCH (09:00)
[2019-12-16] MEDS: NICOTINE 14MG/24HR PATCH TRANSDERM SCH (10:15)
[2019-12-16] MEDS: TAMSULOSIN 0.4 MG CAP.ER.24H PO SCH (10:15)
[2019-12-16 11:04] LABS: Glucose,Whole Blood 67 mg/dL (75-99)
--- NOTE | 2019-12-16 11:10 | US ---
EXAMINATION TYPE: US kidneys/renal and bladder DATE OF EXAM: 12/16/2019 COMPARISON: NONE CLINICAL HISTORY: hematuria. Patient disoriented and combative, limited study. EXAM MEASUREMENTS: Right Kidney: 10.3 x 4.0 x 4.3 cm Left Kidney: n/a Right Kidney: fullness of renal pelvis Left Kidney: inferior pole appears wnl, mid and superior portions obscured by overlying bowel gas Bladder: not fully distended, grimaldo catheter Gallbladder: cholelithiasis IMPRESSION: 1. Suspicious acute changes within the kidney is not identified. 2. Incidental note is made of cholelithiasis.
[2019-12-16] MEDS: SODIUM CHLORIDE 0.45% 1,000 ML IV SCH ×2 (11:12→23:37)
[2019-12-16] MEDS ORDERED: QUEtiapine 50 MG TAB PO STA (11:45)
[2019-12-16] MEDS ORDERED: HALOPERIDOL LACTATE 5 MG/ML 1 ML VIAL IM PRN (12:03)
--- NOTE | 2019-12-16 12:03 | P.PN ---
Progress Note - Text Progress Note Date: 12/16/19 Interval History: Patient was seen for psychiatric follow-up today for delirium. Patient has been taking his medications and was given Seroquel in the afternoon yesterday and also at nighttime. Patient also received a dose of Haldol when necessary this morning for agitation. As per nurse taking care of patients she states that he continues to be confused and wanting to try to get out of the bed and needing direction. Patient was attempted to be seen at the bedside however patient continues to grab at the side rails of the bed and try to get up. Today patient was more verbal with brighter however has poor attention span. When asked what he was doing patient states that "I need to go to the bathroom" and fixated on this and was difficult to redirect and did not answer other questions. He did not follow many commands today and continues to be confused. Unable to assess homicidal, suicidal ideations or auditory or visual hallucinations. Mental Status Exam: General Appearance: Patient appears to be thin/frail, stated age is more awake today and is continuing to be restless and difficult to redirect. Patient appears to have fair hygiene and grooming. Behavior: Patient is restless in bed and attempting to get up several times, difficult to redirect. Speech: Patient was more verbal today however only claimed that he wanted to go to the bathroom and did not answer any other questions. Mood/Affect: Unable to assess. Suicidality/Homicidality: Unable to assess. Perceptions: Unable to assess. Though content/process: Unable to assess. Memory and concentration: Unable to assess due to altered mental status. Poor attention span and follows very minimal commands. Judgment and insight: poor Assessment Delirium possibly secondary to dehydration or medications. History of bipolar disorder Plan: -At this time patient DOES NOT meet criteria for inpatient psychiatric admission however will continue to follow along to see if patient will meet criteria for psychiatric admission in the near future. -Patient DOES NOT have decision making capacity at this time and is unable to reason through and communicate/appreciate the risks, benefits and alternatives to treatment. -Delirium precautions recommended with patient including - avoiding use of narcotics and ENTRY TECH sedatives, limit anticholinergic medications when possible, frequent re-orientation, minimize use of restraints, open window shades during the day and close them at night -Would recommend the following medication changes/additions: Please avoid giving patient any steroids, benzodiazepines or opiates at this time as this will further exacerbate patient's altered mental status. Continue with 300 mg of lithium daily at bedtime for mood stabilization, Cymbalta 30 mg daily for mood. Will increase Seroquel to 25 mg daily +75 mg daily at bedtime agitation/psychosis. Changed Haldol IM to 3 mg every 6 hours whenever necessary for agitation/psychosis. -Continue 1:1 sitter for safety and orientation -Will continue to follow along, continue with treatment for dehydration and underlying medical comorbidities. -Please contact with any questions.
--- NOTE | 2019-12-16 13:29 | P.GSCN ---
History of Present Illness Consult date: 12/16/19 History of present illness: I asked to see this 74-year-old gentleman who came in the hospital with mental status changes and dehydration. The patient has a history of bipolar depression. Apparently his urinalysis showed hematuria. We are asked see the patient. The patient can give me no history. He is at the bedside with an indwelling catheter that was placed today. He had a urinalysis on admission that showed 186 red cells. Unfortunately I cannot determine whether this was a straight cath or a voided specimen. There is no other urinalysis in the medical record. I checked both at [facility] and here at [facility] and there are no other urinalysis. He has not had any urinary tract evaluation other than an ultrasound that showed normal upper tracts. Urine is clear in the bag. Review of Systems ROS unobtainable: due to mental status Past Medical History Past Medical History: Diabetes Mellitus Additional Past Medical History / Comment(s): insomnia, bipolar disorder, remote history of ETOH, smoker,depression History of Any Multi-Drug Resistant Organisms: None Reported Past Surgical History: No Surgical Hx Reported Past Psychological History: Bipolar, Depression Smoking Status: Current every day smoker Past Alcohol Use History: None Reported Past Drug Use History: None Reported - Past Family History Father Family Medical History: Unable to Obtain Medications and Allergies Home Medications Medication Instructions Recorded Confirmed Type DULoxetine HCL [Cymbalta] 30 mg PO DAILY 04/11/17 12/15/19 History [place] Carbonate 600 mg PO DAILY 04/11/17 12/15/19 History clonazePAM [KlonoPIN] 2 mg PO HS 04/11/17 12/15/19 History metFORMIN HCL [Glucophage] 850 mg PO BID 04/11/17 12/15/19 History Tamsulosin HCl [Flomax] 0.8 mg PO HS 12/15/19 12/15/19 History traZODone HCL [Desyrel] 100 mg PO HS 12/15/19 12/15/19 History Allergies Allergy/AdvReac Type Severity Reaction Status Date / Time No Known Allergies Allergy Verified 12/15/19 14:12 Surgical - Exam Vital Signs Temp Resp BP Pulse Ox 98.9 F 20 153/62 98 12/15/19 09:52 12/15/19 09:52 12/15/19 09:52 12/15/19 09:52 - General well developed, cachectic - Eyes PERRL - Neck trachea midline - Respiratory normal respiratory effort - Cardiovascular Rhythm: regular - Abdomen Abdomen: soft, non tender - Genitourinary Indwelling catheter, circumcised, normal testes epididymis and scrotum. The external sphincter is tight. He is prostate is small and benign - Integumentary no rash, no growths - Neurologic confused Results - Labs 12/15/19 09:50 12/16/19 06:23 Abnormal Lab Results - Last 24 Hours (Table) 12/15/19 12/15/19 12/16/19 Range/Units 13:51 17:23 06:23 Chloride 115 H (98-107) mmol/L Carbon Dioxide 21 L (22-30) mmol/L BUN 23 H (9-20) mg/dL Glucose 67 L (74-99) mg/dL POC Glucose (mg/dL) 103 H (75-99) mg/dL Plasma Lactic Acid Pancho 2.5 H* (0.7-2.0) mmol/L Calcium 10.4 H (8.4-10.2) mg/dL 12/16/19 Range/Units 10:58 Chloride (98-107) mmol/L Carbon Dioxide (22-30) mmol/L BUN (9-20) mg/dL Glucose (74-99) mg/dL POC Glucose (mg/dL) 67 L (75-99) mg/dL Plasma Lactic Acid Pancho (0.7-2.0) mmol/L Calcium (8.4-10.2) mg/dL Diabetes panel 12/16/19 Range/Units 06:23 Sodium 141 (137-145) mmol/L Potassium 4.3 (3.5-5.1) mmol/L Chloride 115 H (98-107) mmol/L Carbon Dioxide 21 L (22-30) mmol/L BUN 23 H (9-20) mg/dL Creatinine 1.05 (0.66-1.25) mg/dL Glucose 67 L (74-99) mg/dL Calcium 10.4 H (8.4-10.2) mg/dL Calcium panel 12/16/19 Range/Units 06:23 Calcium 10.4 H (8.4-10.2) mg/dL Pituitary panel 12/16/19 Range/Units 06:23 Sodium 141 (137-145) mmol/L Potassium 4.3 (3.5-5.1) mmol/L Chloride 115 H (98-107) mmol/L Carbon Dioxide 21 L (22-30) mmol/L BUN 23 H (9-20) mg/dL Creatinine 1.05 (0.66-1.25) mg/dL Glucose 67 L (74-99) mg/dL Calcium 10.4 H (8.4-10.2) mg/dL Adrenal panel 12/16/19 Range/Units 06:23 Sodium 141 (137-145) mmol/L Potassium 4.3 (3.5-5.1) mmol/L Chloride 115 H (98-107) mmol/L Carbon Dioxide 21 L (22-30) mmol/L BUN 23 H (9-20) mg/dL Creatinine 1.05 (0.66-1.25) mg/dL Glucose 67 L (74-99) mg/dL Calcium 10.4 H (8.4-10.2) mg/dL - Imaging US - abdomen: report reviewed, image reviewed Assessment and Plan Assessment: Impression: Microscopic hematuria. Recommendations: Unfortunately due to the patient's confusion I'm unable to determine whether this hematuria is new. I'm also unable to determine whether this was catheter-induced hematuria. At some point in time he may need cystoscopy once his mental status clears.
--- NOTE | 2019-12-16 14:50 | P.PN ---
Subjective Progress Note Date: 12/16/19 Principal diagnosis: Patient is 74-year-old male with history of bipolar disorder in with altered mental status patient is agitated when he arrived patient was given Ativan after which his agitation were sent patient urine drug screen is negative and no evidences of infection UA is bit abnormal with some leukocyte esterase does have ketones in the urine. Patient appears to be clinically quite a bit dehydrated with dry mucous membranes and dry skin. Unable to obtain any history from the patient. Patient doesn't have any fever chills patient uses metformin at home patient does have some lactic acidosis secondary to metformin. Patient is supposed to be on antidepressant along with the lithium for bipolar disorder at home his late him levels are 0.8 appears to be taking lithium at home. He is agitated and pretty strongly moving all 4 limbs doesn't appear to have any focal weakness CT of the head showed a diffuse age-related atrophy. 12/16/2019 Patient is seen and evaluated and follow-up with a sitter at the bedside for safety as patient continues to be confused with altered mental status and multiple attempts of getting out of the bed. Patient appears quite thin and cachectic and has not been eating. Per nursing staff patient took a few bites of pudding to take medications but has not been eating any of his meals. Patient was noted to have some hematuria in his urine and urology was consulted. Per nursing staff patient had 2 different episodes of retaining urine and had straight catheterization to empty the bladder and now has an indwelling Serrano c atheter. Psychiatry following as well recommending IM Haldol as needed for agitation along with adjustments and Seroquel. Patient had an ultrasound of the bladder, renal, kidneys showing no acute changes within the kidneys and some cholelithiasis. Objective - Vital Signs Vital signs: Vital Signs Temp 98.4 F 12/16/19 05:02 Pulse 58 L 12/16/19 05:02 Resp 22 12/16/19 05:02 BP 165/82 12/16/19 05:02 Pulse Ox 96 12/16/19 05:02 Intake & Output 12/15/19 12/16/19 12/16/19 18:59 06:59 18:59 Intake Total 60 1380 Output Total 550 1300 Balance -490 80 Weight 63.503 kg Intake: Intake, IV Titration 1380 Amount Sodium Chloride 0.9% 1, 1380 000 ml @ 130 mls/hr IV . [id number] [facility] Rx#:[id number] Oral 60 0 Output: Urine 550 1300 Straight 550 - Exam GENERAL: Patient is slightly agitated, thin built, cachectic, dry mucous membranes HEENT: Pupils are round and equally reacting to light. EOMI. No scleral icterus. No conjunctival pallor. Normocephalic, atraumatic. No pharyngeal erythema. No thyromegaly. CARDIOVASCULAR: S1 and S2 present. No murmurs, rubs, or gallops. PULMONARY: Chest is clear to auscultation, no wheezing or crackles. ABDOMEN: Soft, nontender, nondistended, normoactive bowel sounds. No palpable organomegaly. MUSCULOSKELETAL: No joint swelling or deformity. EXTREMITIES: No cyanosis, clubbing, or pedal edema. NEUROLOGICAL: Moving all 4 limbs . SKIN: No rashes. - Labs CBC & Chem 7: 12/15/19 09:50 12/16/19 06:23 Labs: Abnormal Lab Results - Last 24 Hours (Table) 12/15/19 12/15/19 12/16/19 Range/Units 13:51 17:23 06:23 Chloride 115 H (98-107) mmol/L Carbon Dioxide 21 L (22-30) mmol/L BUN 23 H (9-20) mg/dL Glucose 67 L (74-99) mg/dL POC Glucose (mg/dL) 103 H (75-99) mg/dL Plasma Lactic Acid Pancho 2.5 H* (0.7-2.0) mmol/L Calcium 10.4 H (8.4-10.2) mg/dL 12/16/19 Range/Units 10:58 Chloride (98-107) mmol/L Carbon Dioxide (22-30) mmol/L BUN (9-20) mg/dL Glucose (74-99) mg/dL POC Glucose (mg/dL) 67 L (75-99) mg/dL Plasma Lactic Acid Pancho (0.7-2.0) mmol/L Calcium (8.4-10.2) mg/dL Assessment and Plan Assessment: -Altered mental status, agitation most probably because of psychosis. There may be a component of metabolic encephalopathy from dehydration. patient remains on IV fluids. Psychiatry following -Hematuria, possibly due to straight catheter urine collection or attempts at indwelling Serrano catheter collection. Urology consulted recommending possible outpatient cystoscopy once mental status clears -Asymptomatic bacteriuria, no signs of infection and will not require any antibiotics at this time. -Weight loss most likely secondary to not eating due to psychosis -Acute renal failure secondary to dehydration and intravascular depletion probab ly secondary to poor by mouth intake, to continue with IV fluids. Creatinine 1.05. Will repeat a.m. labs. -Ketonuria secondary to starvation ketosis IV fluids as mentioned above -lactic acidosis from metformin and dehydration expected to improve with IV fluids, improved. Repeat lactic acid 1.9 -Type 2 diabetes mellitus patient will be started on sliding scale insulin -DVT prophylaxis with subcutaneous heparin
--- NOTE | 2019-12-16 16:31 | CDI ---
Documentation Clarification Form Date: 12/16/2019 04:07:29 PM From: Veronica Pemberton RN, CCDS Admit Date: 12/15/2019 11:39:00 AM Patient Name: Dann Crum Visit Number: [id number] Discharge Date: ATTENTION: The Clinical Documentation Specialists (CDI) and [facility] Coding Staff appreciate your assistance in clarifying documentation. Please respond to the clarification below the line at the bottom and electronically sign. The CDI & [facility] Coding staff will review the response and follow-up if needed. Please note: Queries are made part of the Legal Health Record. If you have any questions, please contact the author of this message via ITS. Dr. Darlene Blancas 12/15 progress notes patient general appearance is documented as " quite thin and cachectic and has not been eating". Please provide further clinical significance/diagnosis of this patient if indicated. History/Risk Factors: Diabetes mellitus Psychosis, Bipolar disorder Clinical Indicators: 74-year-old male who present to ER on 12/14 with increased confusion and altered mental status. He had not been eating or drinking well for past several days. 12/14 Labs: WBC 6.1 VBG pH 7.48, pCO2 32, HCO3 23, BUN 71, CR 82, Lactic acid 2.4 , 2.5 COVID-Not detected 12/14 Total protein 6.8, Albumin 4.2 Current BMI: 21.9 Insufficient energy intake: Yes Weight Loss: yes 12/15 progress note Loss of subcutaneous fat: appears to be thin/frail Loss of muscle mass: Frail Treatment: Regular Diet Monitor I/O In your professional opinion, can you please clarify if these findings signify one of the following conditions? Mild Protein-Calorie Malnutrition Moderate Protein-Calorie Malnutrition Severe Protein-Calorie Malnutrition Other condition, please specify Unable to determine (Last Revision: February 2019) Query was already answered by my nurse practitioner PETE
[2019-12-16 17:25] LABS: Glucose,Whole Blood 73 mg/dL (75-99)
[2019-12-16] MEDS: LITHIUM CARBONATE 300 MG CAP PO SCH (19:47)
[2019-12-16 20:05] LABS: Glucose,Whole Blood 118 mg/dL (75-99)
[2019-12-16] MEDS ORDERED: QUEtiapine 25 MG TAB PO SCH (21:00)
[2019-12-17] MEDS ORDERED: ZIPRASIDONE 20 MG VIAL IM ONE (06:00)
[2019-12-17 07:15] LABS: Glucose,Whole Blood 58 mg/dL (75-99)
[2019-12-17 07:22] LABS: Basophils % (A) 0 %; Eosinophils # (A) 0.1 k/uL (0-0.7); Eosinophils % (A) 1 %; HCT 41.7 % (39.0-53.0); HGB 13.8 gm/dL (13.0-17.5); Lymphocytes # (A) 0.6 k/uL (1.0-4.8); Lymphocytes % (A) 6 %; MCH 33.1 pg (25.0-35.0); MCHC 33.1 g/dL (31.0-37.0); MCV 99.7 fL (80.0-100.0); Monocytes # (A) 0.8 k/uL (0-1.0); Monocytes % (A) 9 %; Neutrophils # (A) 7.2 k/uL (1.3-7.7); Neutrophils % (A) 83 %; Platelet Count 131 k/uL (150-450); RBC 4.18 m/uL (4.30-5.90); RDW 12.6 % (11.5-15.5); WBC 8.7 k/uL (3.8-10.6)
[2019-12-17] MEDS ORDERED: DEXTROSE 50% SYRINGE 50 ML IVP ONE (07:24)
[2019-12-17 07:35] LABS: Calcium 10.3 mg/dL (8.4-10.2); Potassium 4.5 mmol/L (3.5-5.1)
[2019-12-17 07:37] LABS: Glucose,Whole Blood 163 mg/dL (75-99)
[2019-12-17] MEDS: INSULIN ASPART (NovoLOG) 100 UNIT/ML VIAL SQ SCH ×4 (09:30→21:42)
[2019-12-17] MEDS: SODIUM CHLORIDE 0.45% 1,000 ML IV SCH (09:30)
[2019-12-17] MEDS: DEXTROSE 5%-0.45% NACL 1,000 ML IV SCH ×3 (09:32→19:35)
[2019-12-17] MEDS: DULoxetine HCL 30 MG CAPSULE.DR PO SCH (09:34)
[2019-12-17] MEDS: TAMSULOSIN 0.4 MG CAP.ER.24H PO SCH (09:34)
[2019-12-17] MEDS: QUEtiapine 25 MG TAB PO SCH (09:34)
[2019-12-17] MEDS: NICOTINE 14MG/24HR PATCH TRANSDERM SCH (09:34)
[2019-12-17] MEDS: HEPARIN SODIUM,PORCINE 5,000 UNIT/ML 1 ML VIAL SQ SCH ×2 (09:34→22:15)
[2019-12-17 11:39] LABS: Glucose,Whole Blood 160 mg/dL (75-99)
[2019-12-17] MEDS ORDERED: LORazepam 2 MG/ML INJ IV STA (13:48)
[2019-12-17] MEDS ORDERED: HALOPERIDOL LACTATE 5 MG/ML 1 ML VIAL IM PRN (14:49)
--- NOTE | 2019-12-17 14:53 | P.PN ---
Subjective Progress Note Date: 12/17/19 Principal diagnosis: Patient is 74-year-old male with history of bipolar disorder in with altered mental status patient is agitated when he arrived patient was given Ativan after which his agitation were sent patient urine drug screen is negative and no evidences of infection UA is bit abnormal with some leukocyte esterase does have ketones in the urine. Patient appears to be clinically quite a bit dehydrated with dry mucous membranes and dry skin. Unable to obtain any history from the patient. Patient doesn't have any fever chills patient uses metformin at home patient does have some lactic acidosis secondary to metformin. Patient is supposed to be on antidepressant along with the lithium for bipolar disorder at home his late him levels are 0.8 appears to be taking lithium at home. He is agitated and pretty strongly moving all 4 limbs doesn't appear to have any focal weakness CT of the head showed a diffuse age-related atrophy. 12/16/2019 Patient is seen and evaluated and follow-up with a sitter at the bedside for safety as patient continues to be confused with altered mental status and multiple attempts of getting out of the bed. Patient appears quite thin and cachectic and has not been eating. Per nursing staff patient took a few bites of pudding to take medications but has not been eating any of his meals. Patient was noted to have some hematuria in his urine and urology was consulted. Per nursing staff patient had 2 different episodes of retaining urine and had straight catheterization to empty the bladder and now has an indwelling Serrano c atheter. Psychiatry following as well recommending IM Haldol as needed for agitation along with adjustments and Seroquel. Patient had an ultrasound of the bladder, renal, kidneys showing no acute changes within the kidneys and some cholelithiasis. 12/17/2019 Patient is seen in follow-up and continues to be extremely agitated and restless with multiple attempts at getting up and out of the bed. Patient initially refusing oral medications this morning although did take them later in the morning with some applesauce. Patient continues to not eat. Multiple medical consultations following. Neurology was consulted and is pending at this time. Patient underwent a CT of the head showing no acute intracranial hemorrhage or midline shift, chronic CSF attenuated bilateral subdural hygromas greater on the left than the right, diffuse age-related cerebral atrophy and mild burden nonspecific white matter changes, and extensive polypoid mucosal thickening in the posterior right nasopharynx with possibility of nasopharyngeal mass. ENT consulted and is pending at this time. Patient to continue with sitter at the bedside for safety. Blood sugars were running low due to not eating and was initiated on D5 half-normal saline and will continue to monitor blood sugars closely. Objective - Vital Signs Vital signs: Vital Signs Temp 97.1 F L 12/17/19 12:01 Pulse 68 12/17/19 12:01 Resp 17 12/17/19 12:01 BP 161/71 12/17/19 12:01 Pulse Ox 98 12/17/19 12:01 Intake & Output 12/16/19 12/17/19 12/17/19 18:59 06:59 18:59 Intake Total 300 Output Total 1200 2000 Balance -1200 -1700 Intake: Oral 300 Output: Urine 1200 1999 Other: Voiding Method Indwelling Catheter Indwelling Catheter - Exam GENERAL: Patient is slightly agitated, thin built, cachectic, dry mucous membranes, continuous attempts at getting up and out of the bed HEENT: Pupils are round and equally reacting to light. EOMI. No scleral icterus. No conjunctival pallor. Normocephalic, atraumatic. No pharyngeal erythema. No thyromegaly. CARDIOVASCULAR: S1 and S2 present. No murmurs, rubs, or gallops. PULMONARY: Chest is clear to auscultation, no wheezing or crackles. ABDOMEN: Soft, scaphoid, nontender, nondistended, normoactive bowel sounds. No palpable organomegaly. MUSCULOSKELETAL: No joint swelling or deformity. EXTREMITIES: No cyanosis, clubbing, or pedal edema. NEUROLOGICAL: Moving all 4 limbs . SKIN: No rashes. - Labs CBC & Chem 7: 12/17/19 06:26 12/17/19 06:26 Labs: Abnormal Lab Results - Last 24 Hours (Table) 12/16/19 12/16/19 12/17/19 Range/Units 17:23 19:45 06:26 RBC 4.18 L (4.30-5.90) m/uL Plt Count 131 L (150-450) k/uL Lymphocytes # 0.6 L (1.0-4.8) k/uL Chloride (98-107) mmol/L Carbon Dioxide (22-30) mmol/L BUN (9-20) mg/dL Glucose (74-99) mg/dL POC Glucose (mg/dL) 73 L 118 H (75-99) mg/dL Calcium (8.4-10.2) mg/dL 12/17/19 12/17/19 12/17/19 Range/Units 06:26 07:14 07:36 RBC (4.30-5.90) m/uL Plt Count (150-450) k/uL Lymphocytes # (1.0-4.8) k/uL Chloride 112 H (98-107) mmol/L Carbon Dioxide 17 L (22-30) mmol/L BUN 33 H (9-20) mg/dL Glucose 37 L* (74-99) mg/dL POC Glucose (mg/dL) 58 L 163 H (75-99) mg/dL Calcium 10.3 H (8.4-10.2) mg/dL 12/17/19 Range/Units 11:39 RBC (4.30-5.90) m/uL Plt Count (150-450) k/uL Lymphocytes # (1.0-4.8) k/uL Chloride (98-107) mmol/L Carbon Dioxide (22-30) mmol/L BUN (9-20) mg/dL Glucose (74-99) mg/dL POC Glucose (mg/dL) 160 H (75-99) mg/dL Calcium (8.4-10.2) mg/dL Assessment and Plan Assessment: -Altered mental status, agitation most probably because of psychosis or deliri um. There may be a component of metabolic encephalopathy from dehydration. patient remains on IV fluids. Psychiatry following. Neurology consulted and pending at this time. -Mild protein calorie malnutrition secondary to poor oral intake -Hypoglycemia secondary to not eating and poor oral intake. Will continue with Accu-Cheks and patient was initiated on D5 half-normal saline. -Extensive polypoid mucosal thickening in the posterior right nasopharynx with possible nasopharyngeal mass as noted on CT. ENT consulted and pending at this time. -Hematuria, possibly due to straight catheter urine collection or attempts at indwelling Serrano catheter collection. Urology consulted recommending possible outpatient cystoscopy once mental status clears -Asymptomatic bacteriuria, no signs of infection and will not require any antibiotics at this time. -Weight loss most likely secondary to not eating due to psychosis -Acute renal failure secondary to dehydration and intravascular depletion proba betty secondary to poor by mouth intake, to continue with IV fluids. Creatinine 1.09. Will repeat a.m. labs. -Ketonuria secondary to starvation ketosis IV fluids as mentioned above -lactic acidosis from metformin and dehydration expected to improve with IV fluids, improved. Repeat lactic acid 1.9. Metformin discontinued -Type 2 diabetes mellitus patient will be started on sliding scale insulin -DVT prophylaxis with subcutaneous heparin Plan: Continue with current medications and management. Psychiatry following. Neurology and ENT consult pending at this time. Will continue with patient s itter for safety. Continue to monitor blood sugars before meals at bedtime and as needed to monitor for hypoglycemia. Continue with D5 half-normal saline. Will repeat a.m. labs. Further recommendations to follow. Discussed with the brother yesterday about CODE STATUS and wishes to keep full code at this time.
--- NOTE | 2019-12-17 14:57 | P.PN ---
Progress Note - Text Progress Note Date: 12/17/19 Interval History: Patient was seen for psychiatric follow-up today for delirium. Patient has been taking his medications thus far and according to nurse taking care patient he has been mildly improving and more verbal however continues to speak nonsensically. Patient was seen at the bedside and was attempting to sleep however was able to be awoken and follow more directions today and commands. He continues to not speak in a coherent manner and continues to have issues with attention and concentration. According to nurse taking care patient she states that patient only slept 20 minutes last night. He continues to be somewhat confused. Unable to assess homicidal, suicidal ideations or auditory or visual hallucinations. Mental Status Exam: General Appearance: Patient appears to be thin/frail, stated age is more awake today and is more calm during examination. Patient appears to have fair hygiene and grooming. Behavior: Patient is less restless today and appears to be calmer, only following some directions and commands. Speech: Incoherent and nonsensical. Mood/Affect: Unable to assess. Suicidality/Homicidality: Unable to assess. Perceptions: Unable to assess. Though content/process: Unable to assess. Memory and concentration: Unable to assess due to altered mental status. Poor attention span and follows very minimal commands. Judgment and insight: poor Assessment Delirium possibly secondary to dehydration or medications. History of bipolar disorder Plan: -At this time patient DOES NOT meet criteria for inpatient psychiatric admission however will continue to follow along to see if patient will meet criteria for psychiatric admission in the near future. -Patient DOES NOT have decision making capacity at this time and is unable to reason through and communicate/appreciate the risks, benefits and alternatives to treatment. -Delirium precautions recommended with patient including - avoiding use of narcotics and OUTDOOR LANDSCAPE ARCHITECT sedatives, limit anticholinergic medications when possible, frequent re-orientation, minimize use of restraints, open window shades during the day and close them at night -Would recommend the following medication changes/additions: Please DO NOT give any steroids, benzodiazepines or opiates at this time as this WILL further exacerbate patient's altered mental status!!!. Continue with 300 mg of lithium daily at bedtime for mood stabilization, will hold off on Cymbalta at this time. Will increase Seroquel to 25 mg daily +150 mg daily at bedtime agitation/psychosis. Changed Haldol IM to 3 mg every 4 hours whenever necessary for agitation/psychosis. -Continue 1:1 sitter for safety and orientation -Will continue to follow along, continue with treatment for dehydration and underlying medical comorbidities. -Please contact with any questions.
[2019-12-17] MEDS: ACYCLOVIR SODIUM 650 MG in SODIUM CHLORIDE 0.9% 100 ML IV SCH ×2 (15:36→22:23)
--- NOTE | 2019-12-17 16:43 | CT ---
EXAMINATION TYPE: CT brain wo con DATE OF EXAM: 12/17/2019 COMPARISON: 12/15/2019 INDICATION: Persistent AMS subdural hygroma/traumatic? DLP: 2208.6 mGycm, Automated exposure control for dose reduction was used. CONTRAST: None CT of the brain is performed utilizing 3 mm thick sections through the posterior fossa and 3 mm thick sections through the remaining calvarium. Study is performed within 24 hours of arrival to the hosp ital. No abnormal hyperdensity is present to suggest an acute intracranial hemorrhage. There is prominence of the extra-axial spaces greater along the left frontal and parietal lobes but also present near the right frontal lobe. These were present previously. Current maximum depth is measured at 1.[address] able from comparison. No midline shift is evident. Quadrigeminal plate and ambient cistern as visuali zed is normal. There is limitation at the skull base due to motion artifact. No suspicious changes to suggest recurrent subdural hematoma is identified. No mass lesion is evident. No acute infarcts are evident. Some mild periventricular white matter hypodensity may be present comp atible with microvascular ischemic change. Ventricles and sulci are otherwise appropriate for the patient age. Paranasal sinuses and mastoid air cells within the [id number] are clear. IMPRESSIONS: 1. Stable prominence of the extra-axial spaces adjacent to the frontal lobes in the left parietal l obe. No increasing density or increasing size is evident. Subdural hygromas or chronic subdural hemat omas would be within the differential which are stable. 2. Mild chronic appearing white matter ischemic type changes
--- NOTE | 2019-12-17 20:18 | EEG ---
ELECTROENCEPHALOGRAM REPORT HISTORY: This is an inpatient EEG performed on a 74-year-old gentleman who presents with acute altered mental status, adult failure to thrive. Three days prior to admission, he fell and hit his head. Following this, he has had mounting confusion. His neuro imaging studies are significant for bilateral subdural hygromas. MEDICATIONS: Acyclovir. TECHNICAL REPORT: This is an inpatient EEG performed on the Impinj EEG monitor with electrodes placed according to the international 10-20 system and a single EKG channel. Simultaneous video EEG monitoring was performed. This EEG was reviewed in both longitudinal bipolar, average referential and transverse montages. Photic stimulation was performed. The recording begins with the patient awake with eyes open, frequent eye blinking. The wake background ranges from 6 to maximum 8 Hz but predominantly in the theta range of 6- 7 Hz. Intermittent muscle and movement artifact contaminates the tracing, as the patient is very restless and agitated. Photic stimulation was performed at various flash frequencies and failed to elicit a consistent driving response. Throughout photic stimulation, frequent eye blinking was noted. The background consisted still predominantly 6-7 Hz theta potentials. The background did appear to attenuate with eye opening. Deeper stages of sleep were not achieved. IMPRESSION: This was a technically difficult study due to excessive motion and movement artifact. The EEG consisted primarily of wake and drowsiness. However, this must be interpreted cautiously, as what appears clinically as the patient quite awake, the background appears quite slow for his stated age. Only rarely did the patient's maximum posterior- dominant rhythm reach 8 Hz. Majority of the study while he appears awake, the background is between 6 and 7 Hz. Therefore this EEG could be considered abnormal from that standpoint. No abnormalities were noted in the EKG. No epileptiform discharges, focal or hemispheric slowing was noted. CLINICAL CORRELATION: This EEG does not rule out an underlying seizure tendency; thus further clinical correlation is needed. The overall slow background for this patient's age does suggest underlying generalized cerebral dysfunction. Further clinical correlation is needed along with neuro imaging studies. Serial EEGs are recommended and/or, if clinically indicated, a more prolonged overnight study could provide additional information. MMODL / IJN: [id number] / MTDD
[2019-12-17] MEDS: LITHIUM CARBONATE 300 MG CAP PO SCH (22:14)
[2019-12-17] MEDS: QUEtiapine 50 MG TAB PO SCH (22:14)
[2019-12-17] MEDS: ACETAMINOPHEN TAB 325 MG TAB PO PRN (22:14)
--- NOTE | 2019-12-17 22:30 | CONS ---
CONSULTATION DATE OF SERVICE: 12/17/2019 REASON FOR CONSULT: Acute altered mental status and abnormal CT scan of the head. HISTORY OF PRESENT ILLNESS: The patient was delirious and unable to elicit a history. The history was provided by his brother. His brother reports that Dann has been generally stable. He does have a history of psychiatric problems and was followed over the past [address] Villeda for generalized anxiety disorder. He stopped seeing him about 3 years ago due to the doctor retiring, and his primary care physician has taken over refilling his medications. He reports he is compliant. Over this past weekend, his brother reports that he developed on Saturday diarrhea but without any abdominal pain. This resolved over the next 24 hours. On Saturday after he had lunch with his brother, he started having more nausea and vomiting and then decreased appetite. He describes the vomitus as not projectile. He gave his brother his medications as scheduled along with a sleeping pill that he usually takes at night, but he thought it was unusual that he was not able to fall asleep. The following morning he was even more confused and altered. His brother reports that on Saturday he had also fallen in the bathroom. This was during that bout of diarrhea. He is unsure whether he hit his head, but when he found him he was alert, but he did hear a large bang in the bathroom. A review of the notes indicates that when the patient arrived in the emergency room, he was very agitated and was given Ativan. He was sent for a urine drug screen, which was negative, and no evidence of any infection in the urine, but there was mild elevation of the leukocyte esterase with some ketones. The patient clinically would meet criteria for adult failure to thrive. He is extremely emaciated, and concern about neglect should be raised. HOME MEDICATIONS: Duloxetine 30 mg daily. [place] carbonate 300 mg at bedtime. Suvorexant 15 mg at bedtime. Clonazepam 1 mg at bedtime. Glipizide 10 mg daily. Metformin 850 mg p.o. b.i.d. Vital signs on admission: Afebrile, pulse rate 86, respiratory rate 16, blood pressure 133/79, and oxygen saturation 99%. Pertinent labs on admission include a low platelet count of 136, elevated glucose of 124, plasma lactic acid elevated at 2.4. ABG showed elevated pH of 7.48, decreased pCO2 of 32, decreased bicarb 23. The initial impression on admission was psychosis with possible metabolic encephalopathy from dehydration. Psychiatry was consulted and the patient was started on Haldol. Over the interim, the patient continued to be combative and disoriented, unable to speak. He has been restarted on all his home medications. EEG was obtained today which showed a slow background for the patient's stated age but at times would reach up to 8 Hz, which is normal wakefulness. But overall, with his clearly wake state, his background was slow. A CT of his head was obtained on admission which showed evidence of chronic bilateral subdural hygromas, greater on the left than right, diffuse age-related cerebral atrophy, nonspecific white matter changes consistent with chronic microangiopathy, polypoid mucosal thickening in the posterior right nasopharynx. Differential diagnosis for nasopharyngeal mass was recommended. Overall moderate pansinusitis. A follow-up CT scan was obtained today on 12/17/2019. This showed stable subdural hygromas in the frontal lobes and left parietal lobe without any increasing density. These subdural hygromas also are considered to be potentially chronic subdural hematomas. Examination: Examination was difficult due to the patient being very altered. He is very hypervigilant, kicking his legs, trying to talk. He has clearly an expressive aphasia. He appears very frightened. Pupils: 2 mm, reactive to light. Cranial nerves: The patient is able to track to light. There was no nystagmus noted on vertical or horizontal gaze. Face appears symmetric. Tongue appears midline. Unable to assess palate. Unable to assess shoulder shrug. Motor examination: The patient is moving all 4 extremities equally. Unable to assess strength formally, but his strength appears 5/5. He is able to push away with both his feet and legs. Intermittently during the exam he was able to follow a few simple commands such as "raise your legs" and "close your eyes." No fasciculations or tremors noted. Deep tendon reflexes: Plus one over biceps, brachioradialis. Patellar reflexes are brisk with crossed adduction at the knees bilaterally. Ankle jerks were absent bilaterally. Plantar responses were withdrawal bilaterally. Sensory examination: Formal testing deferred. Grossly appears normal to light touch by withdrawal. Gait examination deferred due to patient's mental status. General examination: The patient is distressed and tachypneic. HEENT: Oropharynx shows poor hygiene, rotting teeth, possible justino thrush. Overall general appearance is cachectic consistent with adult failure to thrive. PULSES: Radial and pedal pulses are equal and symmetric. EXTREMITIES: Generalized wasting of the extremities is noted in the upper and lower extremities. Distal wasting of the hands and feet is prominent. No clubbing of the digits noted. SKIN: Multiple bruises of various ages are noted throughout the body. ASSESSMENT: This is a 74-year-old [place] male with a history of generalized anxiety disorder, compliant ( ?) on his medications. Several days prior to admission he developed acute diarrhea followed by a fall, and diarrhea clearing in 24 hours. Following these two events he had abrupt change in mental status later that afternoon, unable to talk or interact normally. Duloxitine withdrawl has also been associated with severe withdrawal, paranoia, night bruner & hypervigilance. The subdural hygromas in this setting are concerning for trauma. Due to our facility not having access to Neurosurgery, I am recommending a consult to Neurosurgery to see if he would be appropriate for transfer. I would also recommend an MRI of the brain if the patient can be stabilized. Accumulation of cerebrospinal fluid in the subdural space can occur due to rupture of arachnoid membranes after head injury. Most cases resolve without surgery, though some cases may need surgical intervention, and the patient can deteriorate if left untreated. The primary mechanism of action I am concerned with here is arachnoid rupture. It is also important to differentiate between a subdural hygroma versus effusion. Effusions can be associated with bacterial meningitis. Subdural hematomas can be considered sometimes the final stages of subdural hygromas. I have contacted the on-call neurosurgeon, Dr. Ruiz and discussed this case with him. He is agreeable to review the film studies and determine if this patient is appropriate for transfer. Lastly, we do not have Neurology available over this weekend in the event there is any acute clinical change. Therefore this would be another factor to consider for reason for transfer. Thank you for this consultation. Neurology will continue to follow the patient closely while he remains in-house. Recommendations will be made as this case evolves. ADDENDUM: AT 7:30PM [facility] REVIEWED NEW CT & RECOMMENDED CLOSE FOLLOW UP, REASSESS NEXT WEEK . NO TRANSFER AT THIS TIME RECOMMENDED. MMODL / IJN: [id number] / MTDD
[2019-12-17] MEDS ORDERED: diphenhydrAMINE 50 MG/ML 1 ML VIAL IVP STA (23:43)
[2019-12-18] MEDS: ACYCLOVIR SODIUM 650 MG in SODIUM CHLORIDE 0.9% 100 ML IV SCH ×3 (05:46→21:50)
[2019-12-18] MEDS ORDERED: diphenhydrAMINE 50 MG/ML 1 ML VIAL IVP STA (06:38)
[2019-12-18 07:45] LABS: African American GFR (CKD) >90 (>60 ml/min/1.73 sqM); Anion Gap 8 mmol/L; Blood Urea Nitrogen 24 mg/dL (9-20); Calcium 10.1 mg/dL (8.4-10.2); Carbon Dioxide 21 mmol/L (22-30); Chloride 112 mmol/L (98-107); Glucose 127 mg/dL (74-99); Non-African American GFR(CKD) 82 (>60 ml/min/1.73 sqM); Potassium 4.2 mmol/L (3.5-5.1); Sodium 141 mmol/L (137-145)
[2019-12-18 07:47] LABS: Glucose,Whole Blood 137 mg/dL (75-99)
[2019-12-18 07:47] LABS: Glucose,Whole Blood 136 mg/dL (75-99)
[2019-12-18 07:47] LABS: Glucose,Whole Blood 196 mg/dL (75-99)
[2019-12-18 08:02] LABS: Basophils % (A) 0 %; Eosinophils % (A) 0 %; HCT 37.9 % (39.0-53.0); HGB 12.6 gm/dL (13.0-17.5); Lymphocytes # (A) 0.8 k/uL (1.0-4.8); Lymphocytes % (A) 10 %; MCH 32.7 pg (25.0-35.0); MCHC 33.2 g/dL (31.0-37.0); MCV 98.3 fL (80.0-100.0); Mean Platelet Volume 10.7; Monocytes # (A) 0.7 k/uL (0-1.0); Monocytes % (A) 10 %; Neutrophils # (A) 6.1 k/uL (1.3-7.7); Neutrophils % (A) 78 %; Platelet Count 106 k/uL (150-450); RBC 3.86 m/uL (4.30-5.90); RDW 12.6 % (11.5-15.5); WBC 7.8 k/uL (3.8-10.6)
[2019-12-18 08:02] LABS: Glucose,Whole Blood 142 mg/dL (75-99)
[2019-12-18] MEDS ORDERED: OLANZapine 10 MG VIAL IM STA (08:48)
--- NOTE | 2019-12-18 09:10 | P.PN ---
Progress Note - Text Progress Note Date: 12/18/19 Interval History: Patient was seen for psychiatric follow-up today for delirium. Patient has been taking his medications since yesterday and apparently slept much better. Patient's Seroquel was increased to 150 mg at night and 25 mg during the day. Patient did not receive any Haldol when necessary's overnight. Patient was seen at the bedside with his sitter and according to patient sitter he was more verbal and was able to sing along with the song on the television earlier and has become more coherent in his speech. Patient appeared to be calmer this morning and more interactive with the typewriter operator automatic and followed more commands. His speech continues to improve however it appears that a significant language barrier and accident may be underlying. Patient did not offer any complaints. He continues to be mildly confused. Unable to assess homicidal, suicidal ideations or auditory or visual hallucinations. Mental Status Exam: General Appearance: Patient appears to be thin/frail, stated age is more awake today and is more calm during examination. Patient appears to have fair hygiene and grooming. Behavior: Patient appears to be calmer, following some directions and commands. Speech: Incoherent and nonsensical itches improving. Again language barrier. Mood/Affect: Unable to assess. Suicidality/Homicidality: Unable to assess. Perceptions: Unable to assess. Though content/process: Unable to assess. Memory and concentration: Unable to assess due to altered mental status. Improving attention span and follows more commands. Judgment and insight: poor Assessment Delirium possibly secondary to dehydration or medications. History of bipolar disorder Plan: -At this time patient DOES NOT meet criteria for inpatient psychiatric admission however will continue to follow along to see if patient will meet criteria for psychiatric admission in the near future. -Patient DOES NOT have decision making capacity at this time and is unable to reason through and communicate/appreciate the risks, benefits and alternatives to treatment. -Delirium precautions recommended with patient including - avoiding use of narcotics and LICENSED MORTGAGE LOAN OFFICER sedatives, limit anticholinergic medications when possible, frequent re-orientation, minimize use of restraints, open window shades during the day and close them at night -Would recommend the following medication changes/additions: Please DO NOT give any steroids, benzodiazepines or opiates at this time as this WILL further ex acerbate patient's altered mental status!!!. Continue with 300 mg of lithium daily at bedtime for mood stabilization, continue with Cymbalta. Continue with Seroquel to 25 mg daily +150 mg daily at bedtime agitation/psychosis. Continue with Haldol IM to 3 mg every 4 hours whenever necessary for agitation/psychosis. -Patient will be scheduled for MRI of the brain today to evaluate hygromas as per neurology. DO NOT give any benzodiazepines for sedation and instead can use up to 5 mg IM of Zyprexa if needed prior to the study. -Continue 1:1 sitter for safety and orientation, can discontinue this in the near future by primary team. -Will continue to follow along, continue with treatment for dehydration and underlying medical comorbidities. -Please contact with any questions.
[2019-12-18] MEDS: INSULIN ASPART (NovoLOG) 100 UNIT/ML VIAL SQ SCH ×4 (09:53→21:46)
[2019-12-18] MEDS: TAMSULOSIN 0.4 MG CAP.ER.24H PO SCH (10:02)
[2019-12-18] MEDS: NICOTINE 14MG/24HR PATCH TRANSDERM SCH (10:02)
[2019-12-18] MEDS: DULoxetine HCL 30 MG CAPSULE.DR PO SCH (10:02)
[2019-12-18] MEDS: HEPARIN SODIUM,PORCINE 5,000 UNIT/ML 1 ML VIAL SQ SCH ×2 (10:03→20:27)
[2019-12-18] MEDS: QUEtiapine 25 MG TAB PO SCH (10:03)
[2019-12-18 11:16] LABS: Glucose,Whole Blood 219 mg/dL (75-99)
--- NOTE | 2019-12-18 14:31 | P.PN ---
Subjective Progress Note Date: 12/18/19 Principal diagnosis: Patient is 74-year-old male with history of bipolar disorder in with altered mental status patient is agitated when he arrived patient was given Ativan after which his agitation were sent patient urine drug screen is negative and no evidences of infection UA is bit abnormal with some leukocyte esterase does have ketones in the urine. Patient appears to be clinically quite a bit dehydrated with dry mucous membranes and dry skin. Unable to obtain any history from the patient. Patient doesn't have any fever chills patient uses metformin at home patient does have some lactic acidosis secondary to metformin. Patient is supposed to be on antidepressant along with the lithium for bipolar disorder at home his late him levels are 0.8 appears to be taking lithium at home. He is agitated and pretty strongly moving all 4 limbs doesn't appear to have any focal weakness CT of the head showed a diffuse age-related atrophy. 12/16/2019 Patient is seen and evaluated and follow-up with a sitter at the bedside for safety as patient continues to be confused with altered mental status and multiple attempts of getting out of the bed. Patient appears quite thin and cachectic and has not been eating. Per nursing staff patient took a few bites of pudding to take medications but has not been eating any of his meals. Patient was noted to have some hematuria in his urine and urology was consulted. Per nursing staff patient had 2 different episodes of retaining urine and had straight catheterization to empty the bladder and now has an indwelling Serrano c atheter. Psychiatry following as well recommending IM Haldol as needed for agitation along with adjustments and Seroquel. Patient had an ultrasound of the bladder, renal, kidneys showing no acute changes within the kidneys and some cholelithiasis. 12/17/2019 Patient is seen in follow-up and continues to be extremely agitated and restless with multiple attempts at getting up and out of the bed. Patient initially refusing oral medications this morning although did take them later in the morning with some applesauce. Patient continues to not eat. Multiple medical consultations following. Neurology was consulted and is pending at this time. Patient underwent a CT of the head showing no acute intracranial hemorrhage or midline shift, chronic CSF attenuated bilateral subdural hygromas greater on the left than the right, diffuse age-related cerebral atrophy and mild burden nonspecific white matter changes, and extensive polypoid mucosal thickening in the posterior right nasopharynx with possibility of nasopharyngeal mass. ENT consulted and is pending at this time. Patient to continue with sitter at the bedside for safety. Blood sugars were running low due to not eating and was initiated on D5 half-normal saline and will continue to monitor blood sugars closely. 12/18/2019 Patient is seen and evaluated in follow-up and continues with a sitter at the bedside for safety. Patient is less agitated and talking more appropriately although continues to be confused and unaware of where he has. Patient is able to state who his brother is and simple commands. Psychiatry and neurology following. Patient was to undergo an MRI today although would not stay still for the procedure even with the use of IM Zyprexa. Will continue to monitor mental status closely. Patient continues to have poor oral intake although is drinking small amounts at times and has been taking medications. Neurology recommended possible transfer for neurosurgical consult although transferring facility [facility] stated no need for transfer at this time. Objective - Vital Signs Vital signs: Vital Signs Temp 98.5 F 12/18/19 05:13 Pulse 96 12/18/19 05:13 Resp 19 12/18/19 05:13 BP 176/68 12/18/19 05:13 Pulse Ox 96 12/18/19 05:13 Intake & Output 12/17/19 12/18/19 12/18/19 18:59 06:59 18:59 Intake Total 1175 Output Total 2150 Balance -2150 1175 Weight 63.503 kg Intake: Intake, IV Titration 1175 Amount Acyclovir Sodium 650 mg 200 In Sodium Chloride 0.9% 100 ml @ 113 mls/hr IV Q8H [facility] Rx#:[id number] Dextrose 5%-0.45% NaCl 1, 975 000 ml @ 75 mls/hr IV . [id number] MARLENE Rx#:[id number] Output: Urine 2150 Other: Voiding Method Indwelling Catheter Indwelling Catheter - Exam GENERAL: Patient is less agitated, thin built, cachectic, dry mucous membranes, more alert and responding to commands HEENT: Pupils are round and equally reacting to light. EOMI. No scleral icterus. No conjunctival pallor. Normocephalic, atraumatic. No pharyngeal erythema. No thyromegaly. Dry mucous membranes with crusting noted on the lips and teeth CARDIOVASCULAR: S1 and S2 present. No murmurs, rubs, or gallops. PULMONARY: Chest is clear to auscultation, no wheezing or crackles. ABDOMEN: Soft, scaphoid, nontender, nondistended, normoactive bowel sounds. No palpable organomegaly. MUSCULOSKELETAL: No joint swelling or deformity. EXTREMITIES: No cyanosis, clubbing, or pedal edema. NEUROLOGICAL: Moving all 4 limbs . SKIN: No rashes. - Labs CBC & Chem 7: 12/18/19 07:00 12/18/19 07:00 Labs: Abnormal Lab Results - Last 24 Hours (Table) 12/17/19 12/17/19 12/17/19 Range/Units 06:26 06:26 17:33 RBC (4.30-5.90) m/uL Hgb (13.0-17.5) gm/dL Hct (39.0-53.0) % Plt Count (150-450) k/uL Lymphocytes # (1.0-4.8) k/uL Chloride (98-107) mmol/L Carbon Dioxide (22-30) mmol/L BUN (9-20) mg/dL Glucose (74-99) mg/dL POC Glucose (mg/dL) 142 H (75-99) mg/dL Vitamin D 25-Hydroxy 4.7 L (30.0-100.0) ng/mL PTH Intact 123.3 H (14.0-72.0) pg/mL 12/17/19 12/18/19 12/18/19 Range/Units 20:26 01:59 07:00 RBC 3.86 L (4.30-5.90) m/uL Hgb 12.6 L (13.0-17.5) gm/dL Hct 37.9 L (39.0-53.0) % Plt Count 106 L (150-450) k/uL Lymphocytes # 0.8 L (1.0-4.8) k/uL Chloride (98-107) mmol/L Carbon Dioxide (22-30) mmol/L BUN (9-20) mg/dL Glucose (74-99) mg/dL POC Glucose (mg/dL) 137 H 196 H (75-99) mg/dL Vitamin D 25-Hydroxy (30.0-100.0) ng/mL PTH Intact (14.0-72.0) pg/mL 12/18/19 12/18/19 12/18/19 Range/Units 07:00 07:27 11:15 RBC (4.30-5.90) m/uL Hgb (13.0-17.5) gm/dL Hct (39.0-53.0) % Plt Count (150-450) k/uL Lymphocytes # (1.0-4.8) k/uL Chloride 112 H (98-107) mmol/L Carbon Dioxide 21 L (22-30) mmol/L BUN 24 H (9-20) mg/dL Glucose 127 H (74-99) mg/dL POC Glucose (mg/dL) 136 H 219 H (75-99) mg/dL Vitamin D 25-Hydroxy (30.0-100.0) ng/mL PTH Intact (14.0-72.0) pg/mL Assessment and Plan Assessment: -Altered mental status, agitation most probably because of psychosis or delirium. There may be a component of metabolic encephalopathy from dehydration. patient remains on IV fluids. Psychiatry following. Neurology following an recommending MRI although patient unable to tolerate at this time. Repeat CT of the brain shows no changes from previous CT. EEG performed with artifact and movement although no epileptiform discharges noted. Neuro recommending serial EEGs -Mild protein calorie malnutrition secondary to poor oral intake -Hypoglycemia secondary to not eating and poor oral intake. Will continue with Accu-Cheks and patient was initiated on D5 half-normal saline. -Extensive polypoid mucosal thickening in the posterior right nasopharynx with possible nasopharyngeal mass as noted on CT. ENT consulted and pending at this time. -Hematuria, possibly due to straight catheter urine collection or attempts at indwelling Serrano catheter collection. Urology consulted recommending possible outpatient cystoscopy once mental status clears -Asymptomatic bacteriuria, no signs of infection and will not require any antibiotics at this time. -Weight loss most likely secondary to not eating due to psychosis -Acute renal failure secondary to dehydration and intravascular depletion proba betty secondary to poor by mouth intake, to continue with IV fluids. Creatinine 0.91. Will repeat a.m. labs. -Ketonuria secondary to starvation ketosis IV fluids as mentioned above -lactic acidosis from metformin and dehydration expected to improve with IV fluids, improved. -Type 2 diabetes mellitus patient on sliding scale -DVT prophylaxis with subcutaneous heparin Plan: Continue with current medications and management. Psychiatry following. Neurology following. ENT consult pending at this time. Will continue with patient sitter for safety. Continue to monitor blood sugars before meals at bedtime and as needed to monitor for hypoglycemia. Continue with D5 half-normal saline. Will repeat a.m. labs. Further recommendations to follow.
[2019-12-18 17:29] LABS: Glucose,Whole Blood 135 mg/dL (75-99)
[2019-12-18] MEDS: LITHIUM CARBONATE 300 MG CAP PO SCH (20:26)
[2019-12-18] MEDS: QUEtiapine 50 MG TAB PO SCH (20:27)
[2019-12-18 22:39] LABS: Glucose,Whole Blood 255 mg/dL (75-99)
[2019-12-19 03:16] LABS: Glucose,Whole Blood 181 mg/dL (75-99)
[2019-12-19] MEDS: DEXTROSE 5%-0.45% NACL 1,000 ML IV SCH ×2 (05:25→07:39)
[2019-12-19 05:28] LABS: Glucose,Whole Blood 226 mg/dL (75-99)
[2019-12-19] MEDS: ACYCLOVIR SODIUM 650 MG in SODIUM CHLORIDE 0.9% 100 ML IV SCH ×3 (06:15→21:17)
[2019-12-19] MEDS: DILTIAZEM 125 MG in SODIUM CHLORIDE 0.9% 100 ML IV SCH (06:47)
[2019-12-19] MEDS: INSULIN ASPART (NovoLOG) 100 UNIT/ML VIAL SQ SCH ×4 (06:51→21:17)
[2019-12-19 07:35] LABS: African American GFR (CKD) >90 (>60 ml/min/1.73 sqM); Anion Gap 8 mmol/L; Blood Urea Nitrogen 17 mg/dL (9-20); Calcium 9.8 mg/dL (8.4-10.2); Carbon Dioxide 23 mmol/L (22-30); Chloride 110 mmol/L (98-107); Glucose 191 mg/dL (74-99); Magnesium 1.6 mg/dL (1.6-2.3); Non-African American GFR(CKD) 85 (>60 ml/min/1.73 sqM); Potassium 3.3 mmol/L (3.5-5.1); Sodium 141 mmol/L (137-145)
[2019-12-19 07:37] LABS: Basophils % (A) 0 %; Eosinophils % (A) 0 %; HCT 41.1 % (39.0-53.0); HGB 13.9 gm/dL (13.0-17.5); Lymphocytes # (A) 0.3 k/uL (1.0-4.8); Lymphocytes % (A) 4 %; MCH 33.2 pg (25.0-35.0); MCHC 33.7 g/dL (31.0-37.0); MCV 98.4 fL (80.0-100.0); Mean Platelet Volume 11.2; Monocytes # (A) 0.5 k/uL (0-1.0); Monocytes % (A) 8 %; Neutrophils # (A) 5.9 k/uL (1.3-7.7); Neutrophils % (A) 86 %; Platelet Count 120 k/uL (150-450); RBC 4.18 m/uL (4.30-5.90); RDW 12.7 % (11.5-15.5); WBC 6.9 k/uL (3.8-10.6)
[2019-12-19] MEDS: NICOTINE 14MG/24HR PATCH TRANSDERM SCH (07:43)
[2019-12-19] MEDS: MAGNESIUM SULFATE-D5W PMX 1 GM in DEXTROSE/WATER 1 100ML.BAG IVPB SCH ×2 (12:10→14:12)
[2019-12-19] MEDS: TAMSULOSIN 0.4 MG CAP.ER.24H PO SCH (12:11)
[2019-12-19] MEDS: DULoxetine HCL 30 MG CAPSULE.DR PO SCH ×2 (12:11→12:15)
[2019-12-19] MEDS: POTASSIUM CHLORIDE ER 20 MEQ TAB.ER PO SCH ×3 (12:11→14:13)
[2019-12-19] MEDS: QUEtiapine 25 MG TAB PO SCH ×2 (12:11→12:15)
--- NOTE | 2019-12-19 13:04 | P.CRDCN ---
History of Present Illness Consult date: 12/19/19 Requesting physician: Darlene Blancas Consult reason: atrial fibrillation Chief complaint: Mental status changes, dehydration History of present illness: This is a 74-year-old gentleman, history was obtained from the medical record as the patient is very confused this morning. He has a history of bipolar disorder, diabetes, hyperlipidemia, nicotine dependence. Admitted to the hospital with mental status changes and dehydration. Initial CAT scan of the brain that was performed on arrival here did not reveal any evidence of acute bleed or midline shift. 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 Chest x-ray showed evidence of COPD, EKG showed a sinus bradycardia on arrival here. This morning it was noted that the patient went into a rapid atrial flutter, duration approximately an hour or so. He is back in normal sinus rhythm this morning. An abdominal ultrasound and bladder ultrasound were performed which did not reveal any acute findings. A repeat CT of the brain was also performed which is similar to the initial CAT scan of the brain. Blood pressure 134/70, heart rate in the 60s to 70s, 93% on room air. Afebrile. White blood cell count 6.9, hemoglobin 13.9, hematocrit 41, platelet count 120. Sodium 141, potassium 3.3, BUN 17, creatinine 0.8. Plasma lactic acid on admission 2.5, magnesium 1.6, troponin 0.012, 0.070. Daniel virus not detected. Patient was initiated on a Cardizem drip, no anticoagulation was initiated. Past Medical History Past Medical History: Diabetes Mellitus Additional Past Medical History / Comment(s): insomnia, bipolar disorder, remote history of ETOH, smoker,depression History of Any Multi-Drug Resistant Organisms: None Reported Past Surgical History: No Surgical Hx Reported Past Psychological History: Bipolar, Depression Smoking Status: Current every day smoker Past Alcohol Use History: None Reported Past Drug Use History: None Reported - Past Family History Father Family Medical History: Unable to Obtain Medications and Allergies Home Medications Medication Instructions Recorded Confirmed Type DULoxetine HCL [Cymbalta] 30 mg PO DAILY 04/11/17 12/15/19 History [place] Carbonate 600 mg PO DAILY 04/11/17 12/15/19 History clonazePAM [KlonoPIN] 2 mg PO HS 04/11/17 12/15/19 History metFORMIN HCL [Glucophage] 850 mg PO BID 04/11/17 12/15/19 History Tamsulosin HCl [Flomax] 0.8 mg PO HS 12/15/19 12/15/19 History traZODone HCL [Desyrel] 100 mg PO HS 12/15/19 12/15/19 History Allergies Allergy/AdvReac Type Severity Reaction Status Date / Time No Known Allergies Allergy Verified 12/15/19 14:12 Physical Exam Vitals: Vital Signs Temp Pulse Pulse Resp BP BP Pulse Ox 12/19/19 07:45 99.6 F 88 16 130/55 97 12/19/19 05:04 98.9 F 20 134/71 93 L 12/18/19 15:47 60 75 16 Intake and Output 12/18/19 12/19/19 12/19/19 22:59 06:59 14:59 Intake Total 405 0 1300 Output Total 3500 150 Balance -3095 0 1150 Intake: Intake, IV Titration 225 1300 Amount Acyclovir Sodium 650 mg 100 In Sodium Chloride 0.9% 100 ml @ 113 mls/hr IV Q8H [facility] Rx#:[id number] Dextrose 5%-0.45% NaCl 1, 225 900 000 ml @ 75 mls/hr IV . [id number] [facility] Rx#:[id number] Magnesium Sulfate-D5w Pmx 300 1 gm In Dextrose/Water 1 100ml.bag @ 100 mls/hr IVPB Q1H [facility]LENE Rx#: [id number] Oral 180 0 Output: Urine 300 150 Straight 150 Stool 3200 Other: Voiding Method Indwelling Catheter Indwelling Catheter Indwelling Catheter PHYSICAL EXAMINATION: GENERAL: 74-year-old confused gentleman in no acute distress at the time of examination HEENT: Head is atraumatic, normocephalic. Pupils equal, round. Sclera anicteric. Conjunctiva are clear. Mucous membranes of the mouth are moist. N haley is supple. There is no elevated jugular venous pressure. No carotid bruit is heard. HEART EXAMINATION: Heart S1, S2 normal. No murmur or gallop heard. CHEST EXAMINATION: Revealed mild fine wheezing throughout. ABDOMEN: Soft, nontender. Bowel sounds are heard. No organomegaly noted. EXTREMITIES: 2+ peripheral pulses with no evidence of peripheral edema and no calf tenderness noted. NEUROLOGIC [patient is awake, quite confused. Results 12/19/19 06:23 05/02/20 06:23 Cardiac Enzymes 12/19/19 Range/Units 06:23 Troponin I 0.070 H* (0.000-0.034) ng/mL CBC 12/19/19 Range/Units 06:23 WBC 6.9 (3.8-10.6) k/uL RBC 4.18 L (4.30-5.90) m/uL Hgb 13.9 (13.0-17.5) gm/dL Hct 41.1 (39.0-53.0) % Plt Count 120 L (150-450) k/uL Comprehensive Metabolic Panel 12/19/19 Range/Units 06:23 Sodium 141 (137-145) mmol/L Potassium 3.3 L (3.5-5.1) mmol/L Chloride 110 H (98-107) mmol/L Carbon Dioxide 23 (22-30) mmol/L BUN 17 (9-20) mg/dL Creatinine 0.84 (0.66-1.25) mg/dL Glucose 191 H (74-99) mg/dL Calcium 9.8 (8.4-10.2) mg/dL Current Medications Generic Name Dose Route Start Last Admin Trade Name Freq PRN Reason Stop Dose Admin Acetaminophen 650 mg 12/15/19 11:39 12/17/19 22:14 Tylenol Tab PO 650 mg Q6HR PRN Administration Mild Pain or Fever > 100.5 Duloxetine HCl 30 mg 12/16/19 09:00 12/19/19 12:15 Cymbalta PO Not Given DAILY MARLENE Haloperidol Lactate 3 mg 12/17/19 14:49 Haldol IM Q4HR PRN Agitation or Acute Psychosis Dextrose/Sodium Chloride 1,000 mls @ 75 mls/hr 12/17/19 08:15 12/19/19 07:39 Dextrose 5%-1/2ns Iv Soln IV 75 mls/hr .[id number] MARLENE Administration Acyclovir Sodium 650 mg/ 113 mls @ 113 mls/hr 12/17/19 14:00 12/19/19 06:15 Sodium Chloride IV 113 mls/hr Q8H MARLENE Administration Diltiazem HCl 125 mg/ Sodium 125 mls @ 5 mls/hr 12/19/19 06:00 12/19/19 06:47 Chloride IV 5 mg/hr .Q24H MARLENE 5 mls/hr Administration 5 MG/HR Insulin Aspart 0 unit 12/15/19 12:30 12/19/19 06:51 Novolog SQ 3 unit ACHS MARLENE Administration Protocol [place] Carbonate 300 mg 12/15/19 21:00 12/18/19 20:26 [place] Carbonate PO 300 mg HS MARLENE Administration Naloxone HCl 0.2 mg 12/15/19 11:39 Narcan IV Q2M PRN Opioid Reversal Nicotine 1 patch 12/16/19 09:00 12/19/19 07:43 Habitrol 14mg/24hr Patch TRANSDERM 1 patch DAILY MARLENE Administration Potassium Chloride 20 meq 12/19/19 10:00 12/19/19 12:11 K-Dur 20 PO 12/19/19 14:01 20 meq Q2HR MARLENE Administration Quetiapine Fumarate 25 mg 12/17/19 09:00 12/19/19 12:15 Seroquel PO Not Given DAILY MARLENE Quetiapine Fumarate 150 mg 12/17/19 21:00 12/18/19 20:27 Seroquel PO 150 mg HS MARLENE Administration Tamsulosin HCl 0.4 mg 12/16/19 09:30 12/19/19 12:11 Flomax PO 0.4 mg [id number] MARLENE Administration Intake and Output 12/18/19 12/19/19 12/19/19 22:59 06:59 14:59 Intake Total 405 0 1300 Output Total 3500 150 Balance -3095 0 1150 Intake: Intake, IV Titration 225 1300 Amount Acyclovir Sodium 650 mg 100 In Sodium Chloride 0.9% 100 ml @ 113 mls/hr IV Q8H [facility] Rx#:[id number] Dextrose 5%-0.45% NaCl 1, 225 900 000 ml @ 75 mls/hr IV . [id number] [facility] Rx#:[id number] Magnesium Sulfate-D5w Pmx 300 1 gm In Dextrose/Water 1 100ml.bag @ 100 mls/hr IVPB Q1H [facility] Rx#: [id number] Oral 180 0 Output: Urine 300 150 Straight 150 Stool 3200 Other: Voiding Method Indwelling Catheter Indwelling Catheter Indwelling Catheter 12/19/19 06:23 12/19/19 06:23 EKG Interpretations (text) Initial EKG showed a sinus bradycardia with no acute changes. Rhythm strips this morning didn't detect a rapid atrial flutter, patient currently in normal sinus rhythm Assessment and Plan Plan: Assessment and plan #1 altered mental status, with associated agitation, could be secondary to d ehydration on admission here. #2 acute renal failure, likely secondary to dehydration, patient appears to be putting out good urine, numbers improving today. #3 diabetes #4 episode of paroxysmal atypical atrial flutter, currently in normal sinus rhythm #5 mild abnormality in troponin, does not reflect acute coronary syndrome. #6 hypokalemia #7 hypomagnesemia Plan We will obtain an echocardiogram with Doppler study, check a TSH level, replace the patient's potassium and magnesium. Start the patient on a baby aspirin. At this time we will defer from initiating any oral anticoagulation. If the echocardiogram does demonstrate a significantly reduced LV function we may consider anticoagulation at that time. DNP note has been reviewed, I agree with a documented findings and plan of care. Patient was seen and examined.
--- NOTE | 2019-12-19 13:15 | ECHOF ---
Referral Reason:afib MEASUREMENTS -------- HEIGHT: 170.2 cm WEIGHT: 63.5 kg BP: 134/71 RVIDd: 4.1 cm (< 3.3) IVSd: 1.1 cm (0.6 - 1.1) LVIDd: 3.9 cm (3.9 - 5.3) LVPWd: 1.1 cm (0.6 - 1.1) IVSs: 1.3 cm LVIDs: 2.4 cm LVPWs: 1.2 cm LAESV Index (A-L): 29.73 ml/m MV E Matt: 0.73 m/s MV DecT: 177 ms MV A Matt: 0.84 m/s MV E/A Ratio: 0.87 RAP: 5.00 mmHg RVSP: 46.67 mmHg FINDINGS -------- Sinus rhythm. This was a technically difficult study with suboptimal views. This was a technically difficult study with suboptimal apical views. This was a technically difficult study with suboptimal parasternal views. The left ventricular size is normal. There is mild concentric left ventricular hypertrophy. Overa ll left ventricular systolic function is normal with, an EF between 55 - 60 %. The diastolic fillin g pattern is normal for the age of the patient 8.59. The right ventricle is moderately enlarged. The left atrium was not well visualized. Bi-atrial enlargement. The right atrium is mildly enlarged. Interatrial and interventricular septum intact. The aortic valve is trileaflet and appears structurally normal. There is no evidence of aortic regu rgitation. There is no evidence of aortic stenosis. [id number] mitral regurgitation is present. Moderate tricuspid regurgitation present. There is moderate pulmonary hypertension. The right karen tricular systolic pressure, as measured by Doppler, is 46.67mmHg. There is no pulmonic regurgitation present. The aortic root size is normal. IVC Not well visulized. There is no pericardial effusion. CONCLUSIONS -------- 1. Sinus rhythm. 2. This was a technically difficult study with suboptimal views. 3. This was a technically difficult study with suboptimal apical views. 4. This was a technically difficult study with suboptimal parasternal views. 5. The left ventricular size is normal. 6. There is mild concentric left ventricular hypertrophy. 7. Overall left ventricular systolic function is normal with, an EF between 55 - 60 %. 8. The diastolic filling pattern is normal for the age of the patient 8.59 9. The right ventricle is moderately enlarged. 10. The left atrium was not well visualized. 11. Bi-atrial enlargement. 12. The right atrium is mildly enlarged. 13. Interatrial and interventricular septum intact. 14. The aortic valve is trileaflet and appears structurally normal. 15. There is no evidence of aortic regurgitation. 16. There is no evidence of aortic stenosis. 17. Ztuzycra-[id number] mitral regurgitation is present. 18. Moderate tricuspid regurgitation present. 19. There is moderate pulmonary hypertension. 20. The right ventricular systolic pressure, as measured by Doppler, is 46.67mmHg. 21. There is no pulmonic regurgitation present. 22. The aortic root size is normal. 23. IVC Not well visulized. 24. There is no pericardial effusion. FREIGHT CHECKER: Regine Guidry RDCS
--- NOTE | 2019-12-19 15:06 | P.PN ---
Subjective 74-year-old male with history of bipolar disorder in with altered mental status patient is agitated when he arrived patient was given Ativan after which his agitation were sent patient urine drug screen is negative and no evidences of infection UA is bit abnormal with some leukocyte esterase does have ketones in the urine. Patient appears to be clinically quite a bit dehydrated with dry mucous membranes and dry skin. Unable to obtain any history from the patient. Patient doesn't have any fever chills patient uses metformin at home patient does have some lactic acidosis secondary to metformin. Patient is supposed to be on antidepressant along with the lithium for bipolar disorder at home his late him levels are 0.8 appears to be taking lithium at home. He is agitated and pretty strongly moving all 4 limbs doesn't appear to have any focal weakness CT of the head showed a diffuse age-related atrophy. 12/16/2019 Patient is seen and evaluated and follow-up with a sitter at the bedside for safety as patient continues to be confused with altered mental status and multiple attempts of getting out of the bed. Patient appears quite thin and cachectic and has not been eating. Per nursing staff patient took a few bites of pudding to take medications but has not been eating any of his meals. Patient was noted to have some hematuria in his urine and urology was consulted. Per nursing staff patient had 2 different episodes of retaining urine and had straight catheterization to empty the bladder and now has an indwelling Serrano c atheter. Psychiatry following as well recommending IM Haldol as needed for agitation along with adjustments and Seroquel. Patient had an ultrasound of the bladder, renal, kidneys showing no acute changes within the kidneys and some cholelithiasis. 12/17/2019 Patient is seen in follow-up and continues to be extremely agitated and restless with multiple attempts at getting up and out of the bed. Patient initially refusing oral medications this morning although did take them later in the morning with some applesauce. Patient continues to not eat. Multiple medical consultations following. Neurology was consulted and is pending at this time. Patient underwent a CT of the head showing no acute intracranial hemorrhage or midline shift, chronic CSF attenuated bilateral subdural hygromas greater on the left than the right, diffuse age-related cerebral atrophy and mild burden nonspecific white matter changes, and extensive polypoid mucosal thickening in the posterior right nasopharynx with possibility of nasopharyngeal mass. ENT consulted and is pending at this time. Patient to continue with sitter at the bedside for safety. Blood sugars were running low due to not eating and was initiated on patient still has significant dry mucous membranes half-normal saline and will continue to monitor blood sugars closely. 12/18/2019 Patient is seen and evaluated in follow-up and continues with a sitter at the bedside for safety. Patient is less agitated and talking more appropriately although continues to be confused and unaware of where he has. Patient is able to state who his brother is and simple commands. Psychiatry and neurology following. Patient was to undergo an MRI today although would not stay still for the procedure even with the use of IM Zyprexa. Will continue to monitor mental status closely. Patient continues to have poor oral intake although is drinking small amounts at times and has been taking medications. Neurology recommended possible transfer for neurosurgical consult although transferring facility [facility] stated no need for transfer at this time. 12/19/2019 Patient is still confused but pleasant not agitated patient has some rigidity because of which I'm holding Seroquel until psychiatric evaluated several patient. Multiple other medical issues are going on at this time patient went into A. fib spontaneously converted to sinus rhythm because of which patient is not being started on anticoagulation echocardiac exam was obtained which did not show any decreased LV function. Patient is presently in aspirin. Electrolytes are being corrected, still has dry mucous membranes remains on IV fluids. Patient had mild hypercalcemia can be secondary to dehydration because of which have been the workup PTH is elevated and antibiotic 25-hydroxy vitamin D is low. Patient may have hyperparathyroidism since his calcium has come down I'm not doing any more further workup at this time. TSH is within normal limits Review of systems: Unable to obtain due to his clinical condition All inpatient medications were reviewed and appropriate changes in these medications as dictated in the interval history and assessment and plan. Objective - Vital Signs Vital signs: Vital Signs Temp 99.6 F 12/19/19 07:45 Pulse 88 12/19/19 07:45 Resp 16 12/19/19 07:45 BP 130/55 12/19/19 07:45 Pulse Ox 97 12/19/19 07:45 Intake & Output 12/18/19 12/19/19 12/19/19 18:59 06:59 18:59 Intake Total 2860 225 1300 Output Total 5400 150 Balance -2540 225 1150 Weight 63.503 kg Intake: Intake, IV Titration 2200 225 1300 Amount Acyclovir Sodium 650 mg 1300 100 In Sodium Chloride 0.9% 100 ml @ 113 mls/hr IV Q8H [facility] Rx#:[id number] Dextrose 5%-0.45% NaCl 1, 900 225 900 000 ml @ 75 mls/hr IV . [id number] [facility] Rx#:[id number] Magnesium Sulfate-D5w Pmx 300 1 gm In Dextrose/Water 1 100ml.bag @ 100 mls/hr IVPB Q1H [facility] Rx#: [id number] Oral 660 0 Output: Urine 600 150 Straight 150 Stool 4800 Other: Voiding Method Indwelling Catheter Indwelling Catheter Indwelling Catheter - Exam - Exam GENERAL: Patient is confused pleasant no agitation, thin built, cachectic, dry mucous membranes, more alert and responding to commands but does have some rigidity HEENT: Pupils are round and equally reacting to light. EOMI. No scleral icterus. No conjunctival pallor. Normocephalic, atraumatic. No pharyngeal erythema. No thyromegaly. Dry mucous membranes with crusting noted on the lips and teeth CARDIOVASCULAR: S1 and S2 present. No murmurs, rubs, or gallops. PULMONARY: Chest is clear to auscultation, no wheezing or crackles. ABDOMEN: Soft, scaphoid, nontender, nondistended, normoactive bowel sounds. No palpable organomegaly. MUSCULOSKELETAL: No joint swelling or deformity. EXTREMITIES: No cyanosis, clubbing, or pedal edema. NEUROLOGICAL: Moving all 4 limbs . SKIN: No rashes. - Labs CBC & Chem 7: 12/19/19 06:23 12/19/19 06:23 Labs: Abnormal Lab Results - Last 24 Hours (Table) 12/18/19 12/18/19 12/19/19 Range/Units 17:28 21:45 03:15 RBC (4.30-5.90) m/uL Plt Count (150-450) k/uL Lymphocytes # (1.0-4.8) k/uL Potassium (3.5-5.1) mmol/L Chloride (98-107) mmol/L Glucose (74-99) mg/dL POC Glucose (mg/dL) 135 H 255 H 181 H (75-99) mg/dL Troponin I (0.000-0.034) ng/mL 12/19/19 12/19/19 12/19/19 Range/Units 05:26 06:23 06:23 RBC 4.18 L (4.30-5.90) m/uL Plt Count 120 L (150-450) k/uL Lymphocytes # 0.3 L (1.0-4.8) k/uL Potassium 3.3 L (3.5-5.1) mmol/L Chloride 110 H (98-107) mmol/L Glucose 191 H (74-99) mg/dL POC Glucose (mg/dL) 226 H (75-99) mg/dL Troponin I (0.000-0.034) ng/mL 12/19/19 Range/Units 06:23 RBC (4.30-5.90) m/uL Plt Count (150-450) k/uL Lymphocytes # (1.0-4.8) k/uL Potassium (3.5-5.1) mmol/L Chloride (98-107) mmol/L Glucose (74-99) mg/dL POC Glucose (mg/dL) (75-99) mg/dL Troponin I 0.070 H* (0.000-0.034) ng/mL Assessment and Plan Plan: -Altered mental status, agitation most probably because of psychosis or delirium. Dehydration did improve unable to obtain an MRI. Neurology continues to follow the patient. There may be a component of metabolic encephalopathy from dehydration. patient remains on IV fluids. Psychiatry following. Neurology following an recommending MRI although patient unable to tolerate at this time. Repeat CT of the brain shows no changes from previous CT. EEG performed with artifact and movement although no epileptiform discharges noted. Neuro recommending serial EEGs -New-onset A. fib proximal A. fib rate controlled echocardiogram within normal limits TSH within normal limits. Radiology evaluated the patient patient has mildly elevated troponin troponin secondary to atrial fibrillation and evidence of acute myocardial infarction -Mild protein calorie malnutrition secondary to poor oral intake -Hypoglycemia secondary to not eating and poor oral intake. Will continue with Accu-Cheks and patient was initiated on D5 half-normal saline. -Extensive polypoid mucosal thickening in the posterior right nasopharynx with possible nasopharyngeal mass as noted on CT. ENT consulted and pending at this time. -Hematuria, possibly due to straight catheter urine collection or attempts at indwelling Serrano catheter collection. Urology consulted recommending possible outpatient cystoscopy once mental status clears -Asymptomatic bacteriuria, no signs of infection and will not require any anti biotics at this time. -Weight loss most likely secondary to not eating due to psychosis and poor by mouth intake but hematuria for that need to be evaluated with stress cystoscopy once his most stable -Acute renal failure secondary to dehydration and intravascular depletion probably secondary to poor by mouth intake, to continue with IV fluids. Creatinine 0.91. Will repeat a.m. labs. -Ketonuria secondary to starvation ketosis IV fluids as mentioned above -lactic acidosis from metformin and dehydration expected to improve with IV fluids, improved. -Type 2 diabetes mellitus patient on sliding scale -DVT prophylaxis with subcutaneous heparin Plan: Continue with current medications and management. Psychiatry following. Neurology following. ENT consult pending at this time. Will continue with patient sitter for safety. Continue to monitor blood sugars before meals at bedtime and as needed to monitor for hypoglycemia. Continue with D5 half-normal saline. Will repeat a.m. labs. Further recommendations to follow.
[2019-12-19] MEDS: QUEtiapine 50 MG TAB PO SCH (16:04)
[2019-12-19 16:43] LABS: Glucose,Whole Blood 254 mg/dL (75-99)
[2019-12-19 19:42] LABS: Glucose,Whole Blood 171 mg/dL (75-99)
[2019-12-20] MEDS: LITHIUM CARBONATE 300 MG CAP PO SCH ×2 (00:01→21:01)
[2019-12-20] MEDS: DILTIAZEM 125 MG in SODIUM CHLORIDE 0.9% 100 ML IV SCH (00:02)
[2019-12-20] MEDS: DEXTROSE 5%-0.45% NACL 1,000 ML IV SCH ×2 (00:04→12:28)
[2019-12-20] MEDS: ACYCLOVIR SODIUM 650 MG in SODIUM CHLORIDE 0.9% 100 ML IV SCH ×3 (06:00→21:18)
[2019-12-20 06:02] LABS: Glucose,Whole Blood 218 mg/dL (75-99)
[2019-12-20] MEDS: INSULIN ASPART (NovoLOG) 100 UNIT/ML VIAL SQ SCH ×4 (06:05→21:01)
[2019-12-20 06:10] LABS: Basophils % (A) 0 %; Eosinophils % (A) 0 %; HCT 38.1 % (39.0-53.0); HGB 11.9 gm/dL (13.0-17.5); Hypochromasia Slight; Lymphocytes # (A) 0.3 k/uL (1.0-4.8); Lymphocytes % (A) 5 %; MCH 31.5 pg (25.0-35.0); MCHC 31.1 g/dL (31.0-37.0); Mean Platelet Volume 10.4; Monocytes # (A) 0.5 k/uL (0-1.0); Monocytes % (A) 8 %; Neutrophils % (A) 85 %; Platelet Count 125 k/uL (150-450); RBC 3.78 m/uL (4.30-5.90); RDW 12.9 % (11.5-15.5); WBC 5.9 k/uL (3.8-10.6)
[2019-12-20 06:19] LABS: African American GFR (CKD) >90 (>60 ml/min/1.73 sqM); Anion Gap 6 mmol/L; Blood Urea Nitrogen 18 mg/dL (9-20); Calcium 9.6 mg/dL (8.4-10.2); Carbon Dioxide 24 mmol/L (22-30); Chloride 113 mmol/L (98-107); Glucose 209 mg/dL (74-99); Non-African American GFR(CKD) 84 (>60 ml/min/1.73 sqM); Potassium 3.9 mmol/L (3.5-5.1); Sodium 143 mmol/L (137-145)
[2019-12-20] MEDS: NICOTINE 14MG/24HR PATCH TRANSDERM SCH (07:31)
[2019-12-20] MEDS: TAMSULOSIN 0.4 MG CAP.ER.24H PO SCH (07:31)
[2019-12-20] MEDS: DULoxetine HCL 30 MG CAPSULE.DR PO SCH (07:31)
[2019-12-20] MEDS: ASPIRIN 81 MG PO SCH (07:31)
[2019-12-20] MEDS: QUEtiapine 25 MG TAB PO SCH (10:20)
[2019-12-20 11:49] LABS: Glucose,Whole Blood 166 mg/dL (75-99)
--- NOTE | 2019-12-20 12:10 | P.PN ---
Subjective Progress Note Date: 12/20/19 This is a 74-year-old gentleman, history was obtained from the medical record as the patient is very confused this morning. He has a history of bipolar disorder, diabetes, hyperlipidemia, nicotine dependence. Admitted to the hospital with mental status changes and dehydration. Initial CAT scan of the b rain that was performed on arrival here did not reveal any evidence of acute bleed or midline shift. 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 Chest x-ray showed evidence of COPD, EKG showed a sinus bradycardia on arrival here. This morning it was noted that the patient went into a rapid atrial flutter, duration approximately an hour or so. He is back in normal sinus rhythm this morning. An abdominal ultrasound and bladder ultrasound were performed which did not reveal any acute findings. A repeat CT of the brain was also performed which is similar to the initial CAT scan of the brain. Blood pressure 134/70, heart rate in the 60s to 70s, 93% on room air. Afebrile. White blood cell count 6.9, hemoglobin 13.9, hematocrit 41, platelet count 120. Sodium 141, potassium 3.3, BUN 17, creatinine 0.8. Plasma lactic acid on admission 2.5, magnesium 1.6, troponin 0.012, 0.070. Daniel virus not detected. Patient was initiated on a Cardizem drip, no anticoagulation was initiated. 12/20/2019 Patient seen and examined this morning, he is taking oral medications at this time, blood pressure 148/56, heart rate in the 60s, afebrile, 96% on room air. White blood cell count 5.9, hemoglobin 11.9, platelet count 125. Sodium 143, potassium 3.9, BUN 18, creatinine 0.8. Echocardiogram with Doppler study was performed which revealed an ejection fraction of 55-60%, biatrial enlargement, moderate to severe mitral regurgitation and moderate pulmonary hypertension. Objective - Vital Signs Vital signs: Vital Signs Temp 97.8 F 12/20/19 11:33 Pulse 86 12/20/19 11:33 Resp 18 12/20/19 11:33 BP 180/82 12/20/19 11:33 Pulse Ox 95 12/20/19 11:33 Intake & Output 12/19/19 12/20/19 12/20/19 18:59 06:59 18:59 Intake Total 1360 911.25 1000 Output Total 150 300 20 Balance 1210 611.25 980 Weight 64.5 kg Intake: Intake, IV Titration 1360 911.25 1000 Amount Acyclovir Sodium 650 mg 200 100 In Sodium Chloride 0.9% 100 ml @ 113 mls/hr IV Q8H [facility] Rx#:[id number] Dextrose 5%-0.45% NaCl 1, 900 825 900 000 ml @ 75 mls/hr IV . [id number] [facility] Rx#:[id number] Diltiazem 125 mg In 60 86.25 Sodium Chloride 0.9% 100 ml @ 5 MG/HR 5 mls/hr IV .Q24H [facility] Rx#:[id number] Magnesium Sulfate-D5w Pmx 200 1 gm In Dextrose/Water 1 100ml.bag @ 100 mls/hr IVPB Q1H [facility] Rx#: [id number] Oral 0 Output: Urine 150 300 20 Straight 150 20 Other: Voiding Method Indwelling Catheter Indwelling Catheter Indwelling Catheter - Exam PHYSICAL EXAMINATION: GENERAL: 74-year-old confused gentleman in no acute distress at the time of examination HEENT: Head is atraumatic, normocephalic. Pupils equal, round. Sclera anicteric. Conjunctiva are clear. Mucous membranes of the mouth are moist. Neck is supple. There is no elevated jugular venous pressure. No carotid bruit is heard. HEART EXAMINATION: Heart S1, S2 systolic murmur heard . CHEST EXAMINATION: Revealed mild fine wheezing throughout. ABDOMEN: Soft, nontender. Bowel sounds are heard. No organomegaly noted. EXTREMITIES: 2+ peripheral pulses with no evidence of peripheral edema and no calf tenderness noted. NEUROLOGIC [patient is awake, quite confused. - Labs CBC & Chem 7: 12/20/19 05:43 12/20/19 05:43 Labs: Abnormal Lab Results - Last 24 Hours (Table) 12/19/19 12/19/19 12/20/19 Range/Units 16:41 19:40 05:43 RBC 3.78 L (4.30-5.90) m/uL Hgb 11.9 L (13.0-17.5) gm/dL Hct 38.1 L (39.0-53.0) % MCV 101.0 H (80.0-100.0) fL Plt Count 125 L (150-450) k/uL Lymphocytes # 0.3 L (1.0-4.8) k/uL Chloride (98-107) mmol/L Glucose (74-99) mg/dL POC Glucose (mg/dL) 254 H 171 H (75-99) mg/dL Troponin I (0.000-0.034) ng/mL 12/20/19 12/20/19 12/20/19 Range/Units 05:43 05:43 06:00 RBC (4.30-5.90) m/uL Hgb (13.0-17.5) gm/dL Hct (39.0-53.0) % MCV (80.0-100.0) fL Plt Count (150-450) k/uL Lymphocytes # (1.0-4.8) k/uL Chloride 113 H (98-107) mmol/L Glucose 209 H (74-99) mg/dL POC Glucose (mg/dL) 218 H (75-99) mg/dL Troponin I 0.048 H* (0.000-0.034) ng/mL 12/20/19 Range/Units 11:48 RBC (4.30-5.90) m/uL Hgb (13.0-17.5) gm/dL Hct (39.0-53.0) % MCV (80.0-100.0) fL Plt Count (150-450) k/uL Lymphocytes # (1.0-4.8) k/uL Chloride (98-107) mmol/L Glucose (74-99) mg/dL POC Glucose (mg/dL) 166 H (75-99) mg/dL Troponin I (0.000-0.034) ng/mL Assessment and Plan Plan: Assessment and plan #1 altered mental status, with associated agitation, could be secondary to dehydration on admission here. #2 acute renal failure, likely secondary to dehydration, patient appears to be putting out good urine, numbers improving today. #3 diabetes #4 episode of paroxysmal atypical atrial flutter, currently in normal sinus rhythm #5 mild abnormality in troponin, does not reflect acute coronary syndrome. #6 hypokalemia #7 hypomagnesemia Plan Echo cardiac gram with Doppler study revealed a normal left ventricular systolic function. From cardiology's perspective we will continue this patient on a baby aspirin, no anticoagulation at this time. Discontinue IV Cardizem and initiate oral calcium channel concetta. We will follow this patient along with you now on an as-needed basis only, please don't hesitate to call if you have any questions. DNP note has been reviewed, I agree with a documented findings and plan of care. Patient was seen and examined.
--- NOTE | 2019-12-20 12:27 | P.PN ---
Subjective 74-year-old male with history of bipolar disorder in with altered mental status patient is agitated when he arrived patient was given Ativan after which his agitation were sent patient urine drug screen is negative and no evidences of infection UA is bit abnormal with some leukocyte esterase does have ketones in the urine. Patient appears to be clinically quite a bit dehydrated with dry mucous membranes and dry skin. Unable to obtain any history from the patient. Patient doesn't have any fever chills patient uses metformin at home patient does have some lactic acidosis secondary to metformin. Patient is supposed to be on antidepressant along with the lithium for bipolar disorder at home his late him levels are 0.8 appears to be taking lithium at home. He is agitated and pretty strongly moving all 4 limbs doesn't appear to have any focal weakness CT of the head showed a diffuse age-related atrophy. 12/16/2019 Patient is seen and evaluated and follow-up with a sitter at the bedside for safety as patient continues to be confused with altered mental status and multiple attempts of getting out of the bed. Patient appears quite thin and cachectic and has not been eating. Per nursing staff patient took a few bites of pudding to take medications but has not been eating any of his meals. Patient was noted to have some hematuria in his urine and urology was consulted. Per nursing staff patient had 2 different episodes of retaining urine and had straight catheterization to empty the bladder and now has an indwelling Serrano c atheter. Psychiatry following as well recommending IM Haldol as needed for agitation along with adjustments and Seroquel. Patient had an ultrasound of the bladder, renal, kidneys showing no acute changes within the kidneys and some cholelithiasis. 12/17/2019 Patient is seen in follow-up and continues to be extremely agitated and restless with multiple attempts at getting up and out of the bed. Patient initially refusing oral medications this morning although did take them later in the morning with some applesauce. Patient continues to not eat. Multiple medical consultations following. Neurology was consulted and is pending at this time. Patient underwent a CT of the head showing no acute intracranial hemorrhage or midline shift, chronic CSF attenuated bilateral subdural hygromas greater on the left than the right, diffuse age-related cerebral atrophy and mild burden nonspecific white matter changes, and extensive polypoid mucosal thickening in the posterior right nasopharynx with possibility of nasopharyngeal mass. ENT consulted and is pending at this time. Patient to continue with sitter at the bedside for safety. Blood sugars were running low due to not eating and was initiated on patient still has significant dry mucous membranes half-normal saline and will continue to monitor blood sugars closely. 12/18/2019 Patient is seen and evaluated in follow-up and continues with a sitter at the bedside for safety. Patient is less agitated and talking more appropriately although continues to be confused and unaware of where he has. Patient is able to state who his brother is and simple commands. Psychiatry and neurology following. Patient was to undergo an MRI today although would not stay still for the procedure even with the use of IM Zyprexa. Will continue to monitor mental status closely. Patient continues to have poor oral intake although is drinking small amounts at times and has been taking medications. Neurology recommended possible transfer for neurosurgical consult although transferring facility [facility] stated no need for transfer at this time. 12/19/2019 Patient is still confused but pleasant not agitated patient has some rigidity because of which I'm holding Seroquel until psychiatric evaluated several patient. Multiple other medical issues are going on at this time patient went into A. fib spontaneously converted to sinus rhythm because of which patient is not being started on anticoagulation echocardiac exam was obtained which did not show any decreased LV function. Patient is presently in aspirin. Electrolytes are being corrected, still has dry mucous membranes remains on IV fluids. Patient had mild hypercalcemia can be secondary to dehydration because of which have been the workup PTH is elevated and antibiotic 25-hydroxy vitamin D is low. Patient may have hyperparathyroidism since his calcium has come down I'm not doing any more further workup at this time. TSH is within normal limits 12/20/2019 Patient looks much better today but the excessively sleepy probably because of a lot of antipsychotic medications. We'll can you to monitor the patient. Review of systems: Unable to obtain due to his clinical condition All inpatient medications were reviewed and appropriate changes in these medications as dictated in the interval history and assessment and plan. Objective - Vital Signs Vital signs: Vital Signs Temp 97.8 F 12/20/19 11:33 Pulse 86 12/20/19 11:33 Resp 18 12/20/19 11:33 BP 180/82 12/20/19 11:33 Pulse Ox 95 12/20/19 11:33 Intake & Output 12/19/19 12/20/19 12/20/19 18:59 06:59 18:59 Intake Total 1360 911.25 1000 Output Total 150 300 20 Balance 1210 611.25 980 Weight 64.5 kg Intake: Intake, IV Titration 1360 911.25 1000 Amount Acyclovir Sodium 650 mg 200 100 In Sodium Chloride 0.9% 100 ml @ 113 mls/hr IV Q8H [facility] Rx#:[id number] Dextrose 5%-0.45% NaCl 1, 900 825 900 000 ml @ 75 mls/hr IV . [id number] [facility]LENE Rx#:[id number] Diltiazem 125 mg In 60 86.25 Sodium Chloride 0.9% 100 ml @ 5 MG/HR 5 mls/hr IV .Q24H [facility]LENE Rx#:[id number] Magnesium Sulfate-D5w Pmx 200 1 gm In Dextrose/Water 1 100ml.bag @ 100 mls/hr IVPB Q1H [facility]LEN[facility] Rx#: [id number] Oral 0 Output: Urine 150 300 20 Straight 150 20 Other: Voiding Method Indwelling Catheter Indwelling Catheter Indwelling Catheter - Exam - Exam GENERAL: Patient is confused pleasant no agitation, thin built, cachectic, dry mucous membranes, more alert and responding to commands but does have some rigidity HEENT: Pupils are round and equally reacting to light. EOMI. No scleral icterus. No conjunctival pallor. Normocephalic, atraumatic. No pharyngeal erythema. No thyromegaly. Dry mucous membranes with crusting noted on the lips and teeth CARDIOVASCULAR: S1 and S2 present. No murmurs, rubs, or gallops. PULMONARY: Chest is clear to auscultation, no wheezing or crackles. ABDOMEN: Soft, scaphoid, nontender, nondistended, normoactive bowel sounds. No palpable organomegaly. MUSCULOSKELETAL: No joint swelling or deformity. EXTREMITIES: No cyanosis, clubbing, or pedal edema. NEUROLOGICAL: Moving all 4 limbs . SKIN: No rashes. - Labs CBC & Chem 7: 12/20/19 05:43 12/20/19 05:43 Labs: Abnormal Lab Results - Last 24 Hours (Table) 12/19/19 12/19/19 12/20/19 Range/Units 16:41 19:40 05:43 RBC 3.78 L (4.30-5.90) m/uL Hgb 11.9 L (13.0-17.5) gm/dL Hct 38.1 L (39.0-53.0) % MCV 101.0 H (80.0-100.0) fL Plt Count 125 L (150-450) k/uL Lymphocytes # 0.3 L (1.0-4.8) k/uL Chloride (98-107) mmol/L Glucose (74-99) mg/dL POC Glucose (mg/dL) 254 H 171 H (75-99) mg/dL Troponin I (0.000-0.034) ng/mL 12/20/19 12/20/19 12/20/19 Range/Units 05:43 05:43 06:00 RBC (4.30-5.90) m/uL Hgb (13.0-17.5) gm/dL Hct (39.0-53.0) % MCV (80.0-100.0) fL Plt Count (150-450) k/uL Lymphocytes # (1.0-4.8) k/uL Chloride 113 H (98-107) mmol/L Glucose 209 H (74-99) mg/dL POC Glucose (mg/dL) 218 H (75-99) mg/dL Troponin I 0.048 H* (0.000-0.034) ng/mL 12/20/19 Range/Units 11:48 RBC (4.30-5.90) m/uL Hgb (13.0-17.5) gm/dL Hct (39.0-53.0) % MCV (80.0-100.0) fL Plt Count (150-450) k/uL Lymphocytes # (1.0-4.8) k/uL Chloride (98-107) mmol/L Glucose (74-99) mg/dL POC Glucose (mg/dL) 166 H (75-99) mg/dL Troponin I (0.000-0.034) ng/mL Assessment and Plan Plan: -Altered mental status, agitation most probably because of psychosis or delirium. Dehydration did improve unable to obtain an MRI. Neurology continues to follow the patient. There may be a component of metabolic encephalopathy from dehydration. patient remains on IV fluids. Psychiatry following. Neurology following an recommending MRI although patient unable to tolerate at this time. Repeat CT of the brain shows no changes from previous CT. EEG performed with artifact and movement although no epileptiform discharges noted. Neuro recommending serial EEGs -New-onset A. fib proximal A. fib rate controlled echocardiogram within normal limits TSH within normal limits. Radiology evaluated the patient patient has mildly elevated troponin troponin secondary to atrial fibrillation and evidence of acute myocardial infarction -Mild protein calorie malnutrition secondary to poor oral intake -Hypoglycemia secondary to not eating and poor oral intake. Will continue with Accu-Cheks and patient was initiated on D5 half-normal saline. -Extensive polypoid mucosal thickening in the posterior right nasopharynx with possible nasopharyngeal mass as noted on CT. ENT consulted and pending at this time. -Hematuria, possibly due to straight catheter urine collection or attempts at indwelling Serrano catheter collection. Urology consulted recommending possible outpatient cystoscopy once mental status clears -Asymptomatic bacteriuria, no signs of infection and will not require any antibiotics at this time. -Weight loss most likely secondary to not eating due to psychosis and poor by mouth intake but hematuria for that need to be evaluated with stress cystoscopy once his most stable -Acute renal failure secondary to dehydration and intravascular depletion probably secondary to poor by mouth intake, to continue with IV fluids. Creatinine 0.91. Will repeat a.m. labs. -Ketonuria secondary to starvation ketosis IV fluids as mentioned above -lactic acidosis from metformin and dehydration expected to improve with IV fluids, improved. -Type 2 diabetes mellitus patient on sliding scale -DVT prophylaxis with subcutaneous heparin Plan: Continue with current medications and management. Psychiatry following. Neurology following. ENT consult pending at this time. Will continue with patient sitter for safety. Continue to monitor blood sugars before meals at bedtime and as needed to monitor for hypoglycemia. Continue with D5 half-normal saline. Will repeat a.m. labs. Further recommendations to follow.
[2019-12-20] MEDS: VERAPAMIL SR 120 MG TABLET.ER PO SCH (12:32)
[2019-12-20] MEDS: ACETAMINOPHEN TAB 325 MG TAB PO PRN (15:56)
[2019-12-20 16:38] LABS: Glucose,Whole Blood 278 mg/dL (75-99)
[2019-12-20 20:41] LABS: Glucose,Whole Blood 177 mg/dL (75-99)
[2019-12-20] MEDS ORDERED: QUEtiapine 50 MG TAB PO SCH (21:00)
[2019-12-20] MEDS ORDERED: QUEtiapine 100 MG TAB PO SCH (21:00)
[2019-12-21] MEDS: DEXTROSE 5%-0.45% NACL 1,000 ML IV SCH ×2 (02:48→21:07)
[2019-12-21 06:27] LABS: Basophils % (A) 0 %; Eosinophils # (A) 0.1 k/uL (0-0.7); Eosinophils % (A) 2 %; HCT 36.6 % (39.0-53.0); HGB 11.3 gm/dL (13.0-17.5); Hypochromasia Slight; Lymphocytes # (A) 0.6 k/uL (1.0-4.8); Lymphocytes % (A) 9 %; MCHC 30.8 g/dL (31.0-37.0); MCV 100.9 fL (80.0-100.0); Monocytes # (A) 0.5 k/uL (0-1.0); Monocytes % (A) 7 %; Neutrophils # (A) 5.3 k/uL (1.3-7.7); Neutrophils % (A) 80 %; Platelet Count 125 k/uL (150-450); RBC 3.63 m/uL (4.30-5.90); RDW 12.8 % (11.5-15.5); WBC 6.6 k/uL (3.8-10.6)
[2019-12-21] MEDS: ACYCLOVIR SODIUM 650 MG in SODIUM CHLORIDE 0.9% 100 ML IV SCH ×3 (06:27→21:15)
[2019-12-21 06:31] LABS: Glucose,Whole Blood 205 mg/dL (75-99)
[2019-12-21] MEDS: INSULIN ASPART (NovoLOG) 100 UNIT/ML VIAL SQ SCH ×4 (06:35→21:14)
[2019-12-21 06:41] LABS: African American GFR (CKD) >90 (>60 ml/min/1.73 sqM); Anion Gap 3 mmol/L; Blood Urea Nitrogen 16 mg/dL (9-20); Calcium 9.1 mg/dL (8.4-10.2); Carbon Dioxide 26 mmol/L (22-30); Chloride 111 mmol/L (98-107); Glucose 180 mg/dL (74-99); Non-African American GFR(CKD) 86 (>60 ml/min/1.73 sqM); Potassium 3.6 mmol/L (3.5-5.1); Sodium 140 mmol/L (137-145)
[2019-12-21] MEDS: DULoxetine HCL 30 MG CAPSULE.DR PO SCH (09:26)
[2019-12-21] MEDS: NICOTINE 14MG/24HR PATCH TRANSDERM SCH (09:26)
[2019-12-21] MEDS: TAMSULOSIN 0.4 MG CAP.ER.24H PO SCH (09:26)
[2019-12-21] MEDS: ASPIRIN 81 MG PO SCH (09:26)
[2019-12-21] MEDS: VERAPAMIL SR 120 MG TABLET.ER PO SCH (09:29)
[2019-12-21] MEDS: ACETAMINOPHEN TAB 325 MG TAB PO PRN (09:53)
[2019-12-21 12:09] LABS: Glucose,Whole Blood 314 mg/dL (75-99)
--- NOTE | 2019-12-21 14:32 | P.PN ---
Progress Note - Text Progress Note Date: 12/21/19 Psychiatric progress note: Interval History: Patient was seen for psychiatric follow-up today for delirium. Over the weekend patient's dose of Seroquel has been reduced down to 50 mg daily at bedtime and patient has been taking his medications appropriately. According to nursing care patient states that he has been more cooperative, and has been scheduled to have a MRI of his brain today to evaluate the hygromas. Neurology is continuing to follow along. Patient was seen at the bedside and appears to be somewhat sleepy however was able to answer some questions appropriately. Patient was able to follow more commands today and appeared to be calmer during the interview. Patient did not offer any complaints and states that he slept throughout the night. Patient is denying any suicidal or homicidal ideations intent or plan or any auditory or visual hallucinations. Mental Status Exam: General Appearance: Patient appears to be thin/frail, stated age is continuing to be lethargic. Patient appears to have fair hygiene and grooming. Behavior: Patient appears to be calmer, following more directions and commands. Speech: Speech is clearer however still difficult to comprehend at times. Mood/Affect: States his mood is "fine" and affect is constricted. Suicidality/Homicidality: Denies Perceptions: Not responding to any internal stimuli, does not endorse any auditory or visual hallucinations. Though content/process: [place], minimal content. Memory and concentration: Alert and oriented 2, does not know today's date but knows that he is in the hospital. Improving attention span and follows more commands. Judgment and insight: Improving Assessment Delirium possibly secondary to dehydration or medications. History of bipolar disorder Plan: -At this time patient DOES NOT meet criteria for inpatient psychiatric admission however will continue to follow along to see if patient will meet criteria for psychiatric admission in the near future. -Patient DOES NOT have decision making capacity at this time and is unable to reason through and communicate/appreciate the risks, benefits and alternatives to treatment. -Delirium precautions recommended with patient including - avoiding use of narcotics and [employer] sedatives, limit anticholinergic medications when possible, frequent re-orientation, minimize use of restraints, open window shades during the day and close them at night -Would recommend the following medication changes/additions: Please DO NOT give any steroids, benzodiazepines or opiates at this time as this WILL further exacerbate patient's altered mental status!!!. Continue with 300 mg of lithium daily at bedtime for mood stabilization, continue with Cymbalta. Decreased Seroquel to 25 mg at bedtime agitation/psychosis and this can be further titrated down if needed or patient is still too sedated. Continue with Haldol IM PRN for agitation/psychosis. -Patient will be scheduled for MRI of the brain today to evaluate hygromas as per neurology. DO NOT give any benzodiazepines for sedation and instead can use up to IM Zyprexa if needed prior to the study. -Continue with treatment for dehydration and underlying medical comorbidities. -Psychiatry signing off at this point. Please contact with any questions.
--- NOTE | 2019-12-21 16:19 | MR ---
EXAMINATION TYPE: MR brain wo/w con DATE OF EXAM: 12/21/2019 4:03 PM COMPARISON: CT dated 12/17/2019 HISTORY: Altered mental status CONTRAST: Patient received 6.5 mL intravenous Gadavist gadolinium contrast. Multiplanar and multispin-echo imaging of the brain was performed . Pre and post contrast enhanced i mages are obtained. The ventricles, basal cisterns and sulci overlying the cerebral convexities are mildly to moderately enlarged. There is evidence of mild periventricular white matter ischemic demyelination. Remote deep white matter insults are also noted. No acute edema is seen on diffusion weighted imaging. There is no evidence for midline shift or mass effect. Bilateral extra-axial collections are seen felt to reflect chronic subdural hygromas. On the left the re is left frontal to left occipital parietal extension with maximal thickness of 1.2 cm. On the righ t there is frontal parietal extension with maximal thickness of 1.1 cm. Nasopharyngeal mass noted. Direct visualization is advised. No enhancing lesions are seen. Chronic paranasal sinusitis. IMPRESSION: 1. 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 2. Age-related atrophic and chronic small vessel ischemic change. 3. No evidence for acute intracranial process. 4. Nasopharyngeal mass noted. Direct visualization is advised.
--- NOTE | 2019-12-21 16:31 | P.PN ---
Subjective Progress Note Date: 12/21/19 Principal diagnosis: Patient is 74-year-old male with history of bipolar disorder in with altered mental status patient is agitated when he arrived patient was given Ativan after which his agitation were sent patient urine drug screen is negative and no evidences of infection UA is bit abnormal with some leukocyte esterase does have ketones in the urine. Patient appears to be clinically quite a bit dehydrated with dry mucous membranes and dry skin. Unable to obtain any history from the patient. Patient doesn't have any fever chills patient uses metformin at home patient does have some lactic acidosis secondary to metformin. Patient is supposed to be on antidepressant along with the lithium for bipolar disorder at home his late him levels are 0.8 appears to be taking lithium at home. He is agitated and pretty strongly moving all 4 limbs doesn't appear to have any focal weakness CT of the head showed a diffuse age-related atrophy. 12/16/2019 Patient is seen and evaluated and follow-up with a sitter at the bedside for safety as patient continues to be confused with altered mental status and multiple attempts of getting out of the bed. Patient appears quite thin and cachectic and has not been eating. Per nursing staff patient took a few bites of pudding to take medications but has not been eating any of his meals. Patient was noted to have some hematuria in his urine and urology was consulted. Per nursing staff patient had 2 different episodes of retaining urine and had straight catheterization to empty the bladder and now has an indwelling Serrano c atheter. Psychiatry following as well recommending IM Haldol as needed for agitation along with adjustments and Seroquel. Patient had an ultrasound of the bladder, renal, kidneys showing no acute changes within the kidneys and some cholelithiasis. 12/17/2019 Patient is seen in follow-up and continues to be extremely agitated and restless with multiple attempts at getting up and out of the bed. Patient initially refusing oral medications this morning although did take them later in the morning with some applesauce. Patient continues to not eat. Multiple medical consultations following. Neurology was consulted and is pending at this time. Patient underwent a CT of the head showing no acute intracranial hemorrhage or midline shift, chronic CSF attenuated bilateral subdural hygromas greater on the left than the right, diffuse age-related cerebral atrophy and mild burden nonspecific white matter changes, and extensive polypoid mucosal thickening in the posterior right nasopharynx with possibility of nasopharyngeal mass. ENT consulted and is pending at this time. Patient to continue with sitter at the bedside for safety. Blood sugars were running low due to not eating and was initiated on D5 half-normal saline and will continue to monitor blood sugars closely. 12/18/2019 Patient is seen and evaluated in follow-up and continues with a sitter at the bedside for safety. Patient is less agitated and talking more appropriately although continues to be confused and unaware of where he has. Patient is able to state who his brother is and simple commands. Psychiatry and neurology following. Patient was to undergo an MRI today although would not stay still for the procedure even with the use of IM Zyprexa. Will continue to monitor mental status closely. Patient continues to have poor oral intake although is drinking small amounts at times and has been taking medications. Neurology recommended possible transfer for neurosurgical consult although transferring facility [facility] stated no need for transfer at this time. 12/19/2019 Patient is still confused but pleasant not agitated patient has some rigidity because of which I'm holding Seroquel until psychiatric evaluated several patient. Multiple other medical issues are going on at this time patient went into A. fib spontaneously converted to sinus rhythm because of which patient is not being started on anticoagulation echocardiac exam was obtained which did not show any decreased LV function. Patient is presently in aspirin. Electrolytes are being corrected, still has dry mucous membranes remains on IV fluids. Patient had mild hypercalcemia can be secondary to dehydration because of which have been the workup PTH is elevated and antibiotic 25-hydroxy vitamin D is low. Patient may have hyperparathyroidism since his calcium has come down I'm not doing any more further workup at this time. TSH is within normal limits 12/20/2019 Patient looks much better today but the excessively sleepy probably because of a lot of antipsychotic medications. We'll can you to monitor the patient. Review of systems: Unable to obtain due to his clinical condition 12/21/2019 Patient is seen in follow-up today still confused but responds appropriately to questions and commands. Patient states he is having buttocks pain and requesting some Tylenol. Patient has been getting up with 1-2 person assistance and continues to be quite weak and shaky when ambulating. PT/OT following. Psychiatry also following. Patient underwent MRI today showing bilateral left greater than right subdural hygromas, age-related atrophic and chronic small vessel ischemic changes, no evidence for acute intracranial process, and nasopharyngeal mass noted. ENT was consulted and pending at this time. May need outpatient follow-up. Consult for Dr. Jimenez inpatient rehab placed in currently pending at this time. 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 Will await consult. Objective - Vital Signs Vital signs: Vital Signs Temp 98 F 12/21/19 12:00 Pulse 68 12/21/19 12:00 Resp 16 12/21/19 12:00 BP 137/62 12/21/19 12:00 Pulse Ox 94 L 12/21/19 12:00 Intake & Output 12/20/19 12/21/19 12/21/19 18:59 06:59 18:59 Intake Total 7855 795 6853 Output Total 20 1250 1300 Balance 1200 -350 -250 Weight 64 kg 64 kg Intake: IV 600 Dextrose 5%-0.45% NaCl 1, 600 000 ml @ 75 mls/hr IV . [id number] MARLENE Rx#:[id number] Intake, IV Titration 1000 Amount Acyclovir Sodium 650 mg 100 In Sodium Chloride 0.9% 100 ml @ 113 mls/hr IV Q8H MARLENE Rx#:[id number] Dextrose 5%-0.45% NaCl 1, 900 000 ml @ 75 mls/hr IV . [id number] MARLENE Rx#:[id number] Oral 220 900 450 Output: Urine 20 1250 1300 Straight 20 250 Other: Voiding Method Indwelling Catheter Indwelling Catheter Indwelling Catheter # Voids 1 - Exam GENERAL: Patient is less agitated, more pleasant, thin built, cachectic, dry mucous membranes, more alert and responding to commands, continues to have some rigidity HEENT: Pupils are round and equally reacting to light. EOMI. No scleral icterus. No conjunctival pallor. Normocephalic, atraumatic. No pharyngeal erythema. No thyromegaly. Dry mucous membranes with crusting noted on the lips and teeth, slightly improved CARDIOVASCULAR: S1 and S2 present. No murmurs, rubs, or gallops. PULMONARY: Chest is clear to auscultation, no wheezing or crackles. ABDOMEN: Soft, scaphoid, nontender, nondistended, normoactive bowel sounds. No palpable organomegaly. MUSCULOSKELETAL: No joint swelling or deformity. EXTREMITIES: No cyanosis, clubbing, or pedal edema. NEUROLOGICAL: Moving all 4 limbs . Diffusely weak SKIN: No rashes. - Labs CBC & Chem 7: 12/21/19 06:00 12/21/19 06:00 Labs: Abnormal Lab Results - Last 24 Hours (Table) 12/20/19 12/20/19 12/21/19 Range/Units 16:36 20:40 06:00 RBC 3.63 L (4.30-5.90) m/uL Hgb 11.3 L (13.0-17.5) gm/dL Hct 36.6 L (39.0-53.0) % MCV 100.9 H (80.0-100.0) fL MCHC 30.8 L (31.0-37.0) g/dL Plt Count 125 L (150-450) k/uL Lymphocytes # 0.6 L (1.0-4.8) k/uL Chloride (98-107) mmol/L Glucose (74-99) mg/dL POC Glucose (mg/dL) 278 H 177 H (75-99) mg/dL 12/21/19 12/21/19 12/21/19 Range/Units 06:00 06:31 12:07 RBC (4.30-5.90) m/uL Hgb (13.0-17.5) gm/dL Hct (39.0-53.0) % MCV (80.0-100.0) fL MCHC (31.0-37.0) g/dL Plt Count (150-450) k/uL Lymphocytes # (1.0-4.8) k/uL Chloride 111 H (98-107) mmol/L Glucose 180 H (74-99) mg/dL POC Glucose (mg/dL) 205 H 314 H (75-99) mg/dL Assessment and Plan Assessment: -Altered mental status, agitation most probably because of psychosis or delirium. Dehydration did improve. Neurology continues to follow the patient. There may be a component of metabolic encephalopathy from dehydration. patient remains on IV fluids. Psychiatry following. Neurology following Repeat CT of the brain shows no changes from previous CT. EEG performed with artifact and movement although no epileptiform discharges noted. Neuro recommending serial EEGs. Underwent MRI today as previously mentioned -New-onset A. fib proximal A. fib rate controlled echocardiogram within normal limits TSH within normal limits. Cardiology evaluated the patient patient has mildly elevated troponin, troponin secondary to atrial fibrillation and evidence of acute myocardial infarction. Patient initiated on verapamil. Current heart rate 68. -Mild protein calorie malnutrition secondary to poor oral intake -Hypoglycemia secondary to not eating and poor oral intake. Will continue with Accu-Cheks and patient was initiated on D5 half-normal saline. -Extensive polypoid mucosal thickening in the posterior right nasopharynx with possible nasopharyngeal mass as noted on CT. ENT consulted and pending at this time. -Hematuria, possibly due to straight catheter urine collection or attempts at indwelling Serrano catheter collection. Urology consulted recommending possible outpatient cystoscopy once mental status clears -Asymptomatic bacteriuria, no signs of infection and will not require any antibiotics at this time. -Weight loss most likely secondary to not eating due to psychosis and poor by mouth intake but hematuria for that need to be evaluated with stress cystoscopy once his most stable -Acute renal failure secondary to dehydration and intravascular depletion probably secondary to poor by mouth intake, to continue with IV fluids. Creatinine 0.81. Will repeat a.m. labs. -Ketonuria secondary to starvation ketosis IV fluids as mentioned above -lactic acidosis from metformin and dehydration expected to improve with IV fluids, improved. -Type 2 diabetes mellitus patient on sliding scale -DVT prophylaxis with subcutaneous heparin Plan: Continue with current medications and management. Psychiatry following. Neurology following. ENT consult pending at this time. Will continue with patient sitter for safety. Awaiting Dr. Jimenez consult for possible inpatient rehab for continued weakness and shaking with severe gait dysfunction. Case management and social work following. Will repeat a.m. labs. Further recommendations to follow. Possible discharge in 24-48 hours.
[2019-12-21 16:34] LABS: Glucose,Whole Blood 200 mg/dL (75-99)
--- NOTE | 2019-12-21 17:24 | P.PN ---
Subjective Progress Note Date: 12/21/19 Patient was seen for a follow-up. Patient has been seen in consultation by Dr. Kraft on 12/17/2019. Patient denies headache. Patient admitted for bilateral subdural hematoma. Patient had an EEG, which showed some background slowing, no epileptiform activity. Patient's platelets 11/18/1937 on arrival, which dropped down to 106. Now it is 125. PT/PTT is normal. Patient apparently was not on any antiplatelets or anticoagulants at home. Objective - Vital Signs Vital signs: Vital Signs Temp 98.1 F 12/21/19 16:00 Pulse 61 12/21/19 16:00 Resp 16 12/21/19 16:00 BP 130/60 12/21/19 16:00 Pulse Ox 96 12/21/19 16:00 Intake & Output 12/20/19 12/21/19 12/21/19 18:59 06:59 18:59 Intake Total 4641 352 3399 Output Total 20 1250 1300 Balance 1200 -350 -250 Weight 64 kg 64 kg Intake: IV 600 Dextrose 5%-0.45% NaCl 1, 600 000 ml @ 75 mls/hr IV . [id number] MARLENE Rx#:[id number] Intake, IV Titration 1000 Amount Acyclovir Sodium 650 mg 100 In Sodium Chloride 0.9% 100 ml @ 113 mls/hr IV Q8H MARLENE Rx#:[id number] Dextrose 5%-0.45% NaCl 1, 900 000 ml @ 75 mls/hr IV . [id number] MARLENE Rx#:[id number] Oral 220 900 450 Output: Urine 20 1250 1300 Straight 20 250 Other: Voiding Method Indwelling Catheter Indwelling Catheter Indwelling Catheter # Voids 1 - Exam Patient is somnolent, lethargic, mumbles, does follow some commands. Patient states the month is December. He knows his name. Could not tell which hospital he is in. Patient's face is symmetric. Pupils are round and reacting. Visual lewis could not be tested. 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 Moves legs equally. Detailed testing could not be performed because of mental status. - Labs CBC & Chem 7: 12/21/19 06:00 12/21/19 06:00 Labs: Abnormal Lab Results - Last 24 Hours (Table) 12/20/19 12/21/19 12/21/19 Range/Units 20:40 06:00 06:00 RBC 3.63 L (4.30-5.90) m/uL Hgb 11.3 L (13.0-17.5) gm/dL Hct 36.6 L (39.0-53.0) % MCV 100.9 H (80.0-100.0) fL MCHC 30.8 L (31.0-37.0) g/dL Plt Count 125 L (150-450) k/uL Lymphocytes # 0.6 L (1.0-4.8) k/uL Chloride 111 H (98-107) mmol/L Glucose 180 H (74-99) mg/dL POC Glucose (mg/dL) 177 H (75-99) mg/dL 12/21/19 12/21/19 12/21/19 Range/Units 06:31 12:07 16:33 RBC (4.30-5.90) m/uL Hgb (13.0-17.5) gm/dL Hct (39.0-53.0) % MCV (80.0-100.0) fL MCHC (31.0-37.0) g/dL Plt Count (150-450) k/uL Lymphocytes # (1.0-4.8) k/uL Chloride (98-107) mmol/L Glucose (74-99) mg/dL POC Glucose (mg/dL) 205 H 314 H 200 H (75-99) mg/dL Assessment and Plan Assessment: * 74-year-old male admitted with altered mental status and was diagnosed with bilateral subdural hygroma. * Thrombocytopenia, mild degree. Plan: * Patient underwent MRI of the brain with and without contrast today. It revealed evidence of bilateral chronic subdural hygromas. On the left side, there is left frontal to left occipital parietal extension with maximum thickness of 1.2 cm. On the right side, there is frontal parietal extension with maximal thickness of 1.1 cm. * No antiplatelets or anticoagulants. * Stop aspirin, due to risk of worsening subdural hygromas, if okay with IM/cardiology. * Suggest neurosurgical consultation.
[2019-12-21 20:46] LABS: Glucose,Whole Blood 224 mg/dL (75-99)
[2019-12-21] MEDS: QUEtiapine 25 MG TAB PO SCH (21:14)
[2019-12-21] MEDS: LITHIUM CARBONATE 300 MG CAP PO SCH (21:14)
[2019-12-22 06:13] LABS: Glucose,Whole Blood 176 mg/dL (75-99)
[2019-12-22] MEDS: ACYCLOVIR SODIUM 650 MG in SODIUM CHLORIDE 0.9% 100 ML IV SCH (06:27)
[2019-12-22] MEDS: DEXTROSE 5%-0.45% NACL 1,000 ML IV SCH (06:27)
[2019-12-22] MEDS: INSULIN ASPART (NovoLOG) 100 UNIT/ML VIAL SQ SCH ×4 (06:28→21:47)
[2019-12-22] MEDS: DULoxetine HCL 30 MG CAPSULE.DR PO SCH (09:40)
[2019-12-22] MEDS: TAMSULOSIN 0.4 MG CAP.ER.24H PO SCH (09:40)
[2019-12-22] MEDS: VERAPAMIL SR 120 MG TABLET.ER PO SCH (09:40)
[2019-12-22] MEDS: NICOTINE 14MG/24HR PATCH TRANSDERM SCH (09:41)
[2019-12-22] MEDS: ACETAMINOPHEN TAB 325 MG TAB PO PRN (09:43)
[2019-12-22 11:59] LABS: Glucose,Whole Blood 157 mg/dL (75-99)
--- NOTE | 2019-12-22 14:04 | P.CONS ---
History of Present Illness - Chief Complaint Gait disturbance - History of Present Illness I had the opportunity to see patient for inpatient rehab consultation with regard to gait disturbance. He was admitted to [facility] December 14 with mental status change and agitation for which she was seen by psychiatry. Also seen by cardiology for atrial fibrillation. Chest x-ray note COPD. Head CTs and brain MRI demonstrates bilateral subdural hematoma/hygroma's. Also age-related change. Abdominal ultrasound negative for right and left kidney but positive cholelithiasis. PT reports minimal assistance for transfers and gait 70 feet with roller walker. OT reports supervision for upper dressing, moderate assistance for lower dressing and bathing and minimal assistance for bathing and toileting. Speech therapy prescribed. Previous functional history as elicited from patient: 73-year-old right-handed white male who is single lives and 2 floor home alone. Retired. Patient unable to give any further history. Review of Systems Review of systems: ENT: Denies sneezes or discharge. Eyes: Denies discharge or photophobia. Cardiac: Denies chest pain or palpitation. Pulmonary: Denies cough or shortness of breath. Gastrointestinal: Denies nausea, emesis, constipation, diarrhea. Genitourinary: Denies discharge or frequency. Musculoskeletal: Denies muscle or bone aches. Neurologic: Confusion. Endocrine: Denies shakes or sweats. Oncology: Denies cancers. Dermatologic: Denies rash, itching, pruritus. ALLERGY/immunology: Denies sneezes, rashes. Past Medical History Past Medical History: Diabetes Mellitus Additional Past Medical History / Comment(s): insomnia, bipolar disorder, remote history of ETOH, smoker,depression History of Any Multi-Drug Resistant Organisms: None Reported Past Surgical History: No Surgical Hx Reported Past Psychological History: Bipolar, Depression Smoking Status: Current every day smoker Past Alcohol Use History: None Reported Past Drug Use History: None Reported - Past Family History Father Family Medical History: Unable to Obtain Medications and Allergies Home Medications Medication Instructions Recorded Confirmed Type DULoxetine HCL [Cymbalta] 30 mg PO DAILY 04/11/17 12/15/19 History Mimbres Carbonate 600 mg PO DAILY 04/11/17 12/15/19 History clonazePAM [KlonoPIN] 2 mg PO HS 04/11/17 12/15/19 History metFORMIN HCL [Glucophage] 850 mg PO BID 04/11/17 12/15/19 History Tamsulosin HCl [Flomax] 0.8 mg PO HS 12/15/19 12/15/19 History traZODone HCL [Desyrel] 100 mg PO HS 12/15/19 12/15/19 History Allergies Allergy/AdvReac Type Severity Reaction Status Date / Time No Known Allergies Allergy Verified 12/15/19 14:12 Physical Exam Vitals: Vital Signs Temp Pulse Resp BP Pulse Ox 12/22/19 12:00 97.5 F L 80 16 156/74 96 12/22/19 08:00 99.7 F H 92 20 146/78 90 L 12/22/19 04:00 97.9 F 73 17 148/73 95 12/22/19 00:00 98.1 F 69 17 158/72 94 L 12/21/19 20:00 98.2 F 70 18 145/56 95 12/21/19 16:00 98.1 F 61 16 130/60 96 Intake and Output 12/21/19 12/22/19 12/22/19 22:59 06:59 14:59 Intake Total 120 210 Output Total 2900 800 1500 Balance -2780 -800 -1290 Intake: Oral 120 210 Output: Urine 9830 104 8047 Stool 1600 Other: Voiding Method Indwelling Catheter Indwelling Catheter Indwelling Catheter Weight 62.4 kg Skin: Atrophic, intact. General: Thin build and comfortable appearance. Head: Normocephalic, atraumatic. Eyes: Symmetric. Pupils equal round. Ears: Symmetric. Hearing within normal limits. Mouth: Clear. Neck: Supple. Carotid without bruit. Cardiac: Regular rate and rhythm. Lungs: Clear anteriorly and posteriorly. Abdomen: Soft active nontender. Extremities: Normal tone. Neurological: Mental status: Alert, cooperative, pleasant. Cranial nerves: Symmetric facial tone and trapezius. Motor: Can actively elevates all 4 limbs. Sensation: Intact throughout. DTRs: Symmetric and equal throughout. Mobility: Requires physical assist for bed mobility. Results CBC & Chem 7: 12/21/19 06:00 12/21/19 06:00 Labs: Abnormal Lab Results - Last 24 Hours (Table) 12/21/19 12/21/19 12/22/19 Range/Units 16:33 20:44 06:11 POC Glucose (mg/dL) 200 H 224 H 176 H (75-99) mg/dL 12/22/19 Range/Units 11:29 POC Glucose (mg/dL) 157 H (75-99) mg/dL Assessment and Plan (1) Altered mental status Current Visit: Yes Status: Acute Code(s): R41.82 - ALTERED MENTAL STATUS, UNSPECIFIED SNOMED Code(s): 756935784 (2) Dehydration Current Visit: Yes Status: Acute Code(s): E86.0 - DEHYDRATION SNOMED Code(s): 73997698 Plan: Impression: 1. Gait disturbance. 2. Confusion. 3. Diabetes. Comments and plan: At this time PT and OT are ongoing. Weight speech therapy for communication and cognition evaluation. Rehab prognosis currently related to severe confusion and thus currently guarded.
[2019-12-22 16:42] LABS: Glucose,Whole Blood 254 mg/dL (75-99)
[2019-12-22] MEDS: QUEtiapine 25 MG TAB PO SCH (19:07)
[2019-12-22] MEDS: LITHIUM CARBONATE 300 MG CAP PO SCH (19:07)
--- NOTE | 2019-12-22 20:12 | P.PN ---
Subjective Progress Note Date: 12/22/19 Patient is much more alert and awake today. He is sitting in the bed, eating his lunch. Patient denies headache. Patient denies numbness or tingling. He does complain of back pain. States my "Ass is sore". He thinks he is in a hotel. He is somewhat frustrated states "I don't care if I live or ". Patient had an EEG, which showed some background slowing, no epileptiform activity. Patient's platelets 11/18/1937 on arrival, which dropped down to 106. Now it is 125. PT/PTT is normal. Patient apparently was not on any antiplatelets or anticoagulants at home. Objective - Vital Signs Vital signs: Vital Signs Temp 97.6 F 12/22/19 15:39 Pulse 77 12/22/19 15:39 Resp 20 12/22/19 16:00 BP 145/66 12/22/19 15:39 Pulse Ox 93 L 12/22/19 15:39 Intake & Output 12/22/19 12/22/19 12/23/19 06:59 18:59 06:59 Intake Total 330 Output Total 2100 3800 Balance -2100 -3470 Weight 62.4 kg Intake: Oral 330 Output: Urine 2100 2200 Stool 1600 Other: Voiding Method Indwelling Catheter Indwelling Catheter - Exam Patient is fully alert and awake, in no distress. Denies headache. Patient speech appeared somewhat slurred while he was eating. However when he stopped eating, it appeared much more clear. Patient states it is November and the year is 2002. He thinks he is in a hotel. Patient's face is symmetric. Pupils are r ound and reacting. Visual lewis could not be tested. Patient retail account executive appears equal bilaterally. Strength is normal in the arms. Strength is normal in the ankles and toes. Patient complains of back pain when checking for hip flexion. - Labs CBC & Chem 7: 12/21/19 06:00 12/21/19 06:00 Labs: Abnormal Lab Results - Last 24 Hours (Table) 12/21/19 12/22/19 12/22/19 Range/Units 20:44 06:11 11:29 POC Glucose (mg/dL) 224 H 176 H 157 H (75-99) mg/dL 12/22/19 Range/Units 16:36 POC Glucose (mg/dL) 254 H (75-99) mg/dL Assessment and Plan Assessment: * 74-year-old male admitted with altered mental status and was diagnosed with bilateral subdural hygroma. * Thrombocytopenia, mild degree. * Macrocytosis Plan: * MRI of the brain revealed evidence of bilateral chronic subdural hygromas. On the left side, there is left frontal to left occipital parietal extension with maximum thickness of 1.2 cm. On the right side, there is frontal parietal extension with maximal thickness of 1.1 cm. * No antiplatelets or anticoagulants. * We will check B12, folate due to macrocytosis. * Suggest neurosurgical consultation. Patient may not need craniotomy. However if neurosurgery can review the MRI and clear the patient for discharge and follow-up as outpatient will be fine as well. * Discussed with Dr. Blancas.
[2019-12-22 21:03] LABS: Glucose,Whole Blood 181 mg/dL (75-99)
[2019-12-22 23:27] LABS: Folate, Serum 9.9 ng/mL
[2019-12-23 06:16] LABS: Glucose,Whole Blood 170 mg/dL (75-99)
[2019-12-23] MEDS: INSULIN ASPART (NovoLOG) 100 UNIT/ML VIAL SQ SCH ×4 (06:30→19:48)
--- NOTE | 2019-12-23 08:06 | P.PN ---
Subjective Progress Note Date: 12/22/19 Principal diagnosis: Patient is 74-year-old male with history of bipolar disorder in with altered mental status patient is agitated when he arrived patient was given Ativan after which his agitation were sent patient urine drug screen is negative and no evidences of infection UA is bit abnormal with some leukocyte esterase does have ketones in the urine. Patient appears to be clinically quite a bit dehydrated with dry mucous membranes and dry skin. Unable to obtain any history from the patient. Patient doesn't have any fever chills patient uses metformin at home patient does have some lactic acidosis secondary to metformin. Patient is supposed to be on antidepressant along with the lithium for bipolar disorder at home his late him levels are 0.8 appears to be taking lithium at home. He is agitated and pretty strongly moving all 4 limbs doesn't appear to have any focal weakness CT of the head showed a diffuse age-related atrophy. 12/16/2019 Patient is seen and evaluated and follow-up with a sitter at the bedside for safety as patient continues to be confused with altered mental status and multiple attempts of getting out of the bed. Patient appears quite thin and cachectic and has not been eating. Per nursing staff patient took a few bites of pudding to take medications but has not been eating any of his meals. Patient was noted to have some hematuria in his urine and urology was consulted. Per nursing staff patient had 2 different episodes of retaining urine and had straight catheterization to empty the bladder and now has an indwelling Serrano c atheter. Psychiatry following as well recommending IM Haldol as needed for agitation along with adjustments and Seroquel. Patient had an ultrasound of the bladder, renal, kidneys showing no acute changes within the kidneys and some cholelithiasis. 12/17/2019 Patient is seen in follow-up and continues to be extremely agitated and restless with multiple attempts at getting up and out of the bed. Patient initially refusing oral medications this morning although did take them later in the morning with some applesauce. Patient continues to not eat. Multiple medical consultations following. Neurology was consulted and is pending at this time. Patient underwent a CT of the head showing no acute intracranial hemorrhage or midline shift, chronic CSF attenuated bilateral subdural hygromas greater on the left than the right, diffuse age-related cerebral atrophy and mild burden nonspecific white matter changes, and extensive polypoid mucosal thickening in the posterior right nasopharynx with possibility of nasopharyngeal mass. ENT consulted and is pending at this time. Patient to continue with sitter at the bedside for safety. Blood sugars were running low due to not eating and was initiated on D5 half-normal saline and will continue to monitor blood sugars closely. 12/18/2019 Patient is seen and evaluated in follow-up and continues with a sitter at the bedside for safety. Patient is less agitated and talking more appropriately although continues to be confused and unaware of where he has. Patient is able to state who his brother is and simple commands. Psychiatry and neurology following. Patient was to undergo an MRI today although would not stay still for the procedure even with the use of IM Zyprexa. Will continue to monitor mental status closely. Patient continues to have poor oral intake although is drinking small amounts at times and has been taking medications. Neurology recommended possible transfer for neurosurgical consult although transferring facility [facility] stated no need for transfer at this time. 12/19/2019 Patient is still confused but pleasant not agitated patient has some rigidity because of which I'm holding Seroquel until psychiatric evaluated several patient. Multiple other medical issues are going on at this time patient went into A. fib spontaneously converted to sinus rhythm because of which patient is not being started on anticoagulation echocardiac exam was obtained which did not show any decreased LV function. Patient is presently in aspirin. Electrolytes are being corrected, still has dry mucous membranes remains on IV fluids. Patient had mild hypercalcemia can be secondary to dehydration because of which have been the workup PTH is elevated and antibiotic 25-hydroxy vitamin D is low. Patient may have hyperparathyroidism since his calcium has come down I'm not doing any more further workup at this time. TSH is within normal limits 12/20/2019 Patient looks much better today but the excessively sleepy probably because of a lot of antipsychotic medications. We'll can you to monitor the patient. Review of systems: Unable to obtain due to his clinical condition 12/21/2019 Patient is seen in follow-up today still confused but responds appropriately to questions and commands. Patient states he is having buttocks pain and requesting some Tylenol. Patient has been getting up with 1-2 person assistance and continues to be quite weak and shaky when ambulating. PT/OT following. Psychiatry also following. Patient underwent MRI today showing bilateral left greater than right subdural hygromas, age-related atrophic and chronic small vessel ischemic changes, no evidence for acute intracranial process, and nasopharyngeal mass noted. ENT was consulted and pending at this time. May need outpatient follow-up. Consult for Dr. Jimenez inpatient rehab placed in currently pending at this time. bee worker met with brother today requesting possible inpatient rehab if not homecare with rehab would be a possible option if not accepted at the inpatient rehab as well as he is very concerned due to his weakness for further injuries. Will await consult. 12/22/2019 Patient is seen in follow-up today and continues to be confused at times although is responding appropriately to questions and commands. Patient was seen and evaluated by Dr. Jimenez for possible inpatient rehab for continued weakness and gait dysfunction. They are concerned that this is more of a psychiatric issue as opposed to rehabilitation issue and did not feel the patient would qualify for inpatient rehab. After speaking with the brother who lives with him and is his caregiver he is agreeable to home care and does not want him to go to a subacute rehab facility. Case management following and arranging for home care services at this time. Patient continues to have an indwelling Serrano catheter and will continue in the outpatient setting until follow-up with urology as he was having significant retention noted. Prescription was written for a walker as patient's gait continues to be unsteady and weak and will benefit from a walker in the home setting. Patient has been eating and drinking more and tolerating diet with no reports of nausea or vomiting. No reports of chest pain, shortness of breath, or palpitations. Patient being followed by neurology and recommending close neurology follow-up along with neurosurgical evaluation in the outpatient setting. Objective - Vital Signs Vital signs: Vital Signs Temp 97.9 F 12/23/19 04:00 Pulse 87 12/23/19 04:00 Resp 19 12/23/19 04:00 BP 162/76 12/23/19 04:00 Pulse Ox 92 L 12/23/19 04:00 Intake & Output 12/22/19 12/23/19 12/23/19 18:59 06:59 18:59 Intake Total 330 Output Total 3800 2250 Balance -3470 -2250 Weight 50 kg Intake: Oral 330 Output: Urine 2200 2250 Stool 1600 0 Other: Voiding Method Indwelling Catheter Indwelling Catheter - Exam GENERAL: Patient is less agitated, more pleasant, thin built, cachectic, dry mucous membranes, more alert and responding to commands, continues to have some rigidity HEENT: Pupils are round and equally reacting to light. EOMI. No scleral icterus. No conjunctival pallor. Normocephalic, atraumatic. No pharyngeal erythema. No th yromegaly. CARDIOVASCULAR: S1 and S2 present. No murmurs, rubs, or gallops. PULMONARY: Chest is clear to auscultation, no wheezing or crackles. ABDOMEN: Soft, scaphoid, nontender, nondistended, normoactive bowel sounds. No palpable organomegaly. MUSCULOSKELETAL: No joint swelling or deformity. EXTREMITIES: No cyanosis, clubbing, or pedal edema. NEUROLOGICAL: Moving all 4 limbs . Diffusely weak SKIN: No rashes. - Labs CBC & Chem 7: 12/21/19 06:00 12/21/19 06:00 Labs: Abnormal Lab Results - Last 24 Hours (Table) 12/21/19 12/22/19 12/22/19 Range/Units 06:00 11:29 16:36 POC Glucose (mg/dL) 157 H 254 H (75-99) mg/dL Vitamin B12 1077.0 H (200.0-944.0) pg/mL 12/22/19 12/23/19 Range/Units 20:49 06:15 POC Glucose (mg/dL) 181 H 170 H (75-99) mg/dL Vitamin B12 (200.0-944.0) pg/mL Assessment and Plan Assessment: -Altered mental status, agitation most probably because of psychosis or delirium. Dehydration did improve. Neurology continues to follow the patient. There may be a component of metabolic encephalopathy from dehydration. Psychiatry following. Neurology following Repeat CT of the brain shows no changes from previous CT. EEG performed with artifact and movement although no epileptiform discharges noted. Neuro recommending serial EEGs. Underwent MRI today as previously mentioned -New-onset A. fib proximal A. fib rate controlled echocardiogram within normal limits TSH within normal limits. Cardiology evaluated the patient patient has mildly elevated troponin, troponin secondary to atrial fibrillation and evidence of acute myocardial infarction. Patient initiated on verapamil. Current heart rate in the 70s. -Mild protein calorie malnutrition secondary to poor oral intake -Hypoglycemia secondary to not eating and poor oral intake. Will continue with Accu-Cheks to monitor for any signs of hypoglycemia. 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 ENT consulted and pending at this time. Patient will have outpatient follow-up with ENT -Hematuria, possibly due to straight catheter urine collection or attempts at indwelling Serrano catheter collection. Urology consulted recommending possible outpatient cystoscopy once mental status clears. Patient will continue with an indwelling Serrano catheter upon discharge due to retention and will have urology appointment scheduled -Asymptomatic bacteriuria, no signs of infection and will not require any antibiotics at this time. -Weight loss most likely secondary to not eating due to psychosis and poor by mouth intake -Acute renal failure secondary to dehydration and intravascular depletion probably secondary to poor by mouth intake, to continue with IV fluids. Creatinine 0.81. Will repeat a.m. labs. -Ketonuria secondary to starvation ketosis, improved -lactic acidosis from metformin and dehydration, improved. -Type 2 diabetes mellitus patient on sliding scale -DVT prophylaxis with subcutaneous heparin Plan: Continue with current medications and management. Psychiatry following. Neurology following. ENT consult pending at this time. Case management and social work following And arranging for home care as patient would most likely not qualify for inpatient rehab at this time. Will repeat a.m. labs. Further recommendations to follow. Possible discharge in 24-48 hours.
[2019-12-23] MEDS: ASPIRIN 81 MG PO SCH (08:32)
[2019-12-23 08:44] LABS: Basophils % (A) 0 %; Eosinophils % (A) 1 %; HCT 38.8 % (39.0-53.0); HGB 12.3 gm/dL (13.0-17.5); Lymphocytes # (A) 0.7 k/uL (1.0-4.8); Lymphocytes % (A) 11 %; MCH 31.6 pg (25.0-35.0); MCHC 31.6 g/dL (31.0-37.0); MCV 99.8 fL (80.0-100.0); Mean Platelet Volume 8.2; Monocytes # (A) 0.4 k/uL (0-1.0); Monocytes % (A) 7 %; Neutrophils % (A) 79 %; Platelet Count 217 k/uL (150-450); RBC 3.88 m/uL (4.30-5.90); RDW 12.6 % (11.5-15.5); WBC 6.3 k/uL (3.8-10.6)
[2019-12-23] MEDS: TAMSULOSIN 0.4 MG CAP.ER.24H PO SCH (08:52)
[2019-12-23] MEDS: NICOTINE 14MG/24HR PATCH TRANSDERM SCH (08:52)
[2019-12-23] MEDS: VERAPAMIL SR 120 MG TABLET.ER PO SCH (08:52)
[2019-12-23] MEDS: DULoxetine HCL 30 MG CAPSULE.DR PO SCH (08:52)
[2019-12-23 08:56] LABS: African American GFR (CKD) >90 (>60 ml/min/1.73 sqM); Anion Gap 3 mmol/L; Blood Urea Nitrogen 17 mg/dL (9-20); Calcium 9.4 mg/dL (8.4-10.2); Carbon Dioxide 30 mmol/L (22-30); Chloride 112 mmol/L (98-107); Glucose 124 mg/dL (74-99); Non-African American GFR(CKD) 85 (>60 ml/min/1.73 sqM); Potassium 3.6 mmol/L (3.5-5.1); Sodium 145 mmol/L (137-145)
[2019-12-23 11:32] LABS: Glucose,Whole Blood 207 mg/dL (75-99)
[2019-12-23] MEDS: ACETAMINOPHEN TAB 325 MG TAB PO PRN (12:30)
--- NOTE | 2019-12-23 14:50 | P.DS ---
Providers Date of admission: 12/15/19 11:39 Expected date of discharge: 12/23/19 Attending physician: Darlene Blancas Consults: 12/15/19 11:53 Consult Physician Routine Consulting Provider: Jack Oliva Consult Reason/Comments: Acute psychosis Do you want consulting provider notified?: Yes 12/16/19 09:25 Consult Physician Urgent Consulting Provider: Norberto Wagner Consult Reason/Comments: hematuria/ possible enlarged prostate/ catheter diffiulties Do you want consulting provider notified?: Yes 12/17/19 11:12 Consult Physician Urgent Consulting Provider: Shakeel Arriola Consult Reason/Comments: possible nasopharyngeal mass noted on CT Do you want consulting provider notified?: Yes 12/17/19 11:13 Consult Physician Routine Consulting Provider: Becka Kraft Consult Reason/Comments: altered mental status Do you want consulting provider notified?: Yes 12/19/19 05:42 Consult Physician Stat Consulting Provider: Pravin Estrada Consult Reason/Comments: new onset afib Do you want consulting provider notified?: Yes 12/21/19 12:39 Consult Physician Stat Consulting Provider: Dennis Jimenez Consult Reason/Comments: possible inpatient rehab/ gait dysfunction/ weakness Do you want consulting provider notified?: Yes Primary care physician: Alex Hardin Hospital Course: Final diagnosis -Altered mental status, agitation most probably because of psychosis or delirium and Dehydration. -New-onset A. fib proximal A. fib rate controlled -Mild protein calorie malnutrition secondary to poor oral intake -Hypoglycemia secondary to not eating and poor oral intake. 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 -Type 2 diabetes mellitus patient on sliding scale -DVT prophylaxis Discharge disposition Patient is being discharged in a stable condition with guarded prognosis to home and will have home care in the outpatient setting. Patient will also need to follow-up with Dr. Hardin along with urology, neurosurgery, neurology, and cardiology in the outpatient setting. Total time taken is 35 minutes. History of present illness This is a 74-year-old male who was recently admitted with increased agitation, altered mental status, and confusion and was being closely monitored. Multiple consultations were following. Patient was seen and evaluated by psychiatry with multiple medication adjustments. Patient was in a state of psychosis or delirium possibly due to medications and/or dehydration. Patient did have CAT scan along with MRI of the brain which showed no acute intracranial hemorrhage or midline shift, chronic CSF attenuated bilateral subdural hygromas greater on the left than the right, diffuse age-related cerebral atrophy and mild burden nonspecific white matter changes, and extensive polypoid mucosal thickening in the posterior right nasopharynx with possibility of a nasopharyngeal mass. Neurology evaluated the patient recommending outpatient neurosurgery evaluation as well. Dr. Parker neurosurgery discussed the case in the MRI findings and is agreeable to outpatient follow-up. 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 Patient will continue with an indwelling Serrano catheter as he was having retention and needs urology follow-up in the outpatient setting. Patient will be having home care along with 24/7 care of his brother who lives with him and cares for him. Patient continues to be confused although mentation has improved. Social work following and discussed with the brother of the 30 day window for SNF rehab if he feels the patient is not being cared for at home. A prescription was provided for a walker as the patient's gait continues to be unsteady requiring assistance. Currently no reports of chest pain, shortness of breath, or palpitations. Patient is afebrile. No reports of nausea or vomiting and patient is tolerating diet. On exam vital signs are stable. Temp is 97.7F, pulse is 69, respirations are 18, blood pressure is 171/75, oxygen saturation is 95% on room air. Cardio S1, S2 are present. Respiratory system shows diminished breath sounds at the bases with no wheezing or rhonchi noted. Abdomen is soft, thin, and non-tender. Nervous system shows diffuse weakness. Please refer to medication reconciliation sheet for a list of medications. Patient Condition at Discharge: Stable Plan - Discharge Summary Discharge Rx Participant: Yes New Discharge Prescriptions: New Verapamil Sr [Isoptin Sr] 120 mg PO DAILY 30 Days #30 tablet.er Dyer Carbonate 300 mg PO HS 30 Days #30 cap QUEtiapine [SEROquel] 25 mg PO HS 30 Days #30 tab Acetaminophen Tab [Tylenol] 650 mg PO Q6HR PRN #30 tab PRN Reason: Mild Pain Or Fever > 100.5 Continue metFORMIN HCL [Glucophage] 850 mg PO BID DULoxetine HCL [Cymbalta] 30 mg PO DAILY Tamsulosin HCl [Flomax] 0.8 mg PO HS Discontinued clonazePAM [KlonoPIN] 2 mg PO HS Dyer Carbonate 600 mg PO DAILY traZODone HCL [Desyrel] 100 mg PO HS Discharge Medication List DULoxetine HCL [Cymbalta] 30 mg PO DAILY 04/11/17 [History] metFORMIN HCL [Glucophage] 850 mg PO BID 04/11/17 [History] Tamsulosin HCl [Flomax] 0.8 mg PO HS 12/15/19 [History] Acetaminophen Tab [Tylenol] 650 mg PO Q6HR PRN #30 tab 12/23/19 [Rx] Dyer Carbonate 300 mg PO HS 30 Days #30 cap 12/23/19 [Rx] QUEtiapine [SEROquel] 25 mg PO HS 30 Days #30 tab 12/23/19 [Rx] Verapamil Sr [Isoptin Sr] 120 mg PO DAILY 30 Days #30 tablet.er 12/23/19 [Rx] Follow up Appointment(s)/Referral(s): Alex Hardin MD [Primary Care Provider] - 12/25/19 10:20 am (Dr Hardin will call you for this appointment over the phone. ) [facility], [NON-STAFF] - Vivienne Acevedo MD [Medical Doctor] - 1 Week (The office will call to schedule follow up appointment. ) Jake Velázquez MD [STAFF PHYSICIAN] - 1 Week (The office will call you to schedule follow up appointment. ) Patient Instructions/Handouts: Dehydration (DC), Altered Mental Status (GEN) Activity/Diet/Wound Care/Special Instructions: Activity Limited until follow-up Patient will be going home with home care Patient to follow up with neurology in the outpatient setting Follow-up with primary care provider upon discharge Patient to follow-up with urology in 1 week Patient to follow-up with ENT in 1-2 weeks Patient to follow-up with Dr. Parker neurosurgery and call to make an appointment at [phone] (nurse practitioner [place]) Continue with indwelling Serrano catheter until urology appointment Continue to encourage oral intake and monitor intake Continue with Glucerna 3 times daily with meals patient prefers chocolate Discharge Disposition: HOME WITH HOME HEALTH SERVICES
[2019-12-23 16:42] LABS: Glucose,Whole Blood 202 mg/dL (75-99)
--- NOTE | 2019-12-23 17:15 | P.PN ---
Subjective Progress Note Date: 12/23/19 Principal diagnosis: Patient is 74-year-old male with history of bipolar disorder in with altered mental status patient is agitated when he arrived patient was given Ativan after which his agitation were sent patient urine drug screen is negative and no evidences of infection UA is bit abnormal with some leukocyte esterase does have ketones in the urine. Patient appears to be clinically quite a bit dehydrated with dry mucous membranes and dry skin. Unable to obtain any history from the patient. Patient doesn't have any fever chills patient uses metformin at home patient does have some lactic acidosis secondary to metformin. Patient is supposed to be on antidepressant along with the lithium for bipolar disorder at home his late him levels are 0.8 appears to be taking lithium at home. He is agitated and pretty strongly moving all 4 limbs doesn't appear to have any focal weakness CT of the head showed a diffuse age-related atrophy. 12/16/2019 Patient is seen and evaluated and follow-up with a sitter at the bedside for safety as patient continues to be confused with altered mental status and multiple attempts of getting out of the bed. Patient appears quite thin and cachectic and has not been eating. Per nursing staff patient took a few bites of pudding to take medications but has not been eating any of his meals. Patient was noted to have some hematuria in his urine and urology was consulted. Per nursing staff patient had 2 different episodes of retaining urine and had straight catheterization to empty the bladder and now has an indwelling Serrano c atheter. Psychiatry following as well recommending IM Haldol as needed for agitation along with adjustments and Seroquel. Patient had an ultrasound of the bladder, renal, kidneys showing no acute changes within the kidneys and some cholelithiasis. 12/17/2019 Patient is seen in follow-up and continues to be extremely agitated and restless with multiple attempts at getting up and out of the bed. Patient initially refusing oral medications this morning although did take them later in the morning with some applesauce. Patient continues to not eat. Multiple medical consultations following. Neurology was consulted and is pending at this time. Patient underwent a CT of the head showing no acute intracranial hemorrhage or midline shift, chronic CSF attenuated bilateral subdural hygromas greater on the left than the right, diffuse age-related cerebral atrophy and mild burden nonspecific white matter changes, and extensive polypoid mucosal thickening in the posterior right nasopharynx with possibility of nasopharyngeal mass. ENT consulted and is pending at this time. Patient to continue with sitter at the bedside for safety. Blood sugars were running low due to not eating and was initiated on D5 half-normal saline and will continue to monitor blood sugars closely. 12/18/2019 Patient is seen and evaluated in follow-up and continues with a sitter at the bedside for safety. Patient is less agitated and talking more appropriately although continues to be confused and unaware of where he has. Patient is able to state who his brother is and simple commands. Psychiatry and neurology following. Patient was to undergo an MRI today although would not stay still for the procedure even with the use of IM Zyprexa. Will continue to monitor mental status closely. Patient continues to have poor oral intake although is drinking small amounts at times and has been taking medications. Neurology recommended possible transfer for neurosurgical consult although transferring facility [facility] stated no need for transfer at this time. 12/19/2019 Patient is still confused but pleasant not agitated patient has some rigidity because of which I'm holding Seroquel until psychiatric evaluated several patient. Multiple other medical issues are going on at this time patient went into A. fib spontaneously converted to sinus rhythm because of which patient is not being started on anticoagulation echocardiac exam was obtained which did not show any decreased LV function. Patient is presently in aspirin. Electrolytes are being corrected, still has dry mucous membranes remains on IV fluids. Patient had mild hypercalcemia can be secondary to dehydration because of which have been the workup PTH is elevated and antibiotic 25-hydroxy vitamin D is low. Patient may have hyperparathyroidism since his calcium has come down I'm not doing any more further workup at this time. TSH is within normal limits 12/20/2019 Patient looks much better today but the excessively sleepy probably because of a lot of antipsychotic medications. We'll can you to monitor the patient. Review of systems: Unable to obtain due to his clinical condition 12/21/2019 Patient is seen in follow-up today still confused but responds appropriately to questions and commands. Patient states he is having buttocks pain and requesting some Tylenol. Patient has been getting up with 1-2 person assistance and continues to be quite weak and shaky when ambulating. PT/OT following. Psychiatry also following. Patient underwent MRI today showing bilateral left greater than right subdural hygromas, age-related atrophic and chronic small vessel ischemic changes, no evidence for acute intracranial process, and nasopharyngeal mass noted. ENT was consulted and pending at this time. May need outpatient follow-up. Consult for Dr. Jimenez inpatient rehab placed in currently pending at this time. 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 Will await consult. 12/22/2019 Patient is seen in follow-up today and continues to be confused at times although is responding appropriately to questions and commands. Patient was seen and evaluated by Dr. Jimenez for possible inpatient rehab for continued weakness and gait dysfunction. They are concerned that this is more of a psychiatric issue as opposed to rehabilitation issue and did not feel the patient would qualify for inpatient rehab. After speaking with the brother who lives with him and is his caregiver he is agreeable to home care and does not want him to go to a subacute rehab facility. Case management following and arranging for home care services at this time. Patient continues to have an indwelling Serrano catheter and will continue in the outpatient setting until follow-up with urology as he was having significant retention noted. Prescription was written for a walker as patient's gait continues to be unsteady and weak and will benefit from a walker in the home setting. Patient has been eating and drinking more and tolerating diet with no reports of nausea or vomiting. No reports of chest pain, shortness of breath, or palpitations. Patient being followed by neurology and recommending close neurology follow-up along with neurosurgical evaluation in the outpatient setting. 12/23/2019 Patient is seen in follow up today and continues to be quite weak requiring assistance with ambulation. Patient continues to be slightly confused at times. Patient was scheduled to be discharged this afternoon, but brother feels that sub-acute rehab or a fpc facility would be more appropriate to care for him at the time. Patient needs continued PT/OT therapy for strength and mobility along with multiple outpatient follow-ups. No overnight issues reported by nursing staff. Objective - Vital Signs Vital signs: Vital Signs Temp 97.8 F 12/23/19 11:35 Pulse 66 12/23/19 11:35 Resp 18 12/23/19 11:35 BP 132/65 12/23/19 11:35 Pulse Ox 91 L 12/23/19 11:35 Intake & Output 12/22/19 12/23/19 12/23/19 18:59 06:59 18:59 Intake Total 330 Output Total 3800 2250 700 Balance -3470 -2250 -700 Weight 50 kg 50 kg Intake: Oral 330 Output: Urine 2200 2250 700 Stool 1600 0 0 Other: Voiding Method Indwelling Catheter Indwelling Catheter Indwelling Catheter - Exam GENERAL: Patient is confused, more pleasant, thin built, cachectic, dry mucous membranes, more alert and responding to commands, continues to have some rigidity HEENT: Pupils are round and equally reacting to light. EOMI. No scleral icterus. No conjunctival pallor. Normocephalic, atraumatic. No pharyngeal erythema. No thyromegaly. CARDIOVASCULAR: S1 and S2 present. No murmurs, rubs, or gallops. PULMONARY: Chest is clear to auscultation, no wheezing or crackles. ABDOMEN: Soft, scaphoid, nontender, nondistended, normoactive bowel sounds. No palpable organomegaly. MUSCULOSKELETAL: No joint swelling or deformity. EXTREMITIES: No cyanosis, clubbing, or pedal edema. NEUROLOGICAL: Moving all 4 limbs . Diffusely weak SKIN: No rashes. - Labs CBC & Chem 7: 12/23/19 08:08 12/23/19 08:08 Labs: Abnormal Lab Results - Last 24 Hours (Table) 12/21/19 12/22/19 12/23/19 Range/Units 06:00 20:49 06:15 RBC (4.30-5.90) m/uL Hgb (13.0-17.5) gm/dL Hct (39.0-53.0) % Lymphocytes # (1.0-4.8) k/uL Chloride (98-107) mmol/L Glucose (74-99) mg/dL POC Glucose (mg/dL) 181 H 170 H (75-99) mg/dL Vitamin B12 1077.0 H (200.0-944.0) pg/mL 12/23/19 12/23/19 12/23/19 Range/Units 08:08 08:08 11:30 RBC 3.88 L (4.30-5.90) m/uL Hgb 12.3 L (13.0-17.5) gm/dL Hct 38.8 L (39.0-53.0) % Lymphocytes # 0.7 L (1.0-4.8) k/uL Chloride 112 H (98-107) mmol/L Glucose 124 H (74-99) mg/dL POC Glucose (mg/dL) 207 H (75-99) mg/dL Vitamin B12 (200.0-944.0) pg/mL 12/23/19 Range/Units 16:38 RBC (4.30-5.90) m/uL Hgb (13.0-17.5) gm/dL Hct (39.0-53.0) % Lymphocytes # (1.0-4.8) k/uL Chloride (98-107) mmol/L Glucose (74-99) mg/dL POC Glucose (mg/dL) 202 H (75-99) mg/dL Vitamin B12 (200.0-944.0) pg/mL Assessment and Plan Assessment: -Altered mental status, agitation most probably because of psychosis or delirium. Dehydration did improve. Neurology continues to follow the patient. There may be a component of metabolic encephalopathy from dehydration. Psychiatry following. Neurology following Repeat CT of the brain shows no changes from previous CT. EEG performed with artifact and movement although no epileptiform discharges noted. Neuro recommending serial EEGs. Underwent MRI today as previously mentioned -New-onset A. fib proximal A. fib rate controlled echocardiogram within normal limits TSH within normal limits. Cardiology evaluated the patient patient has mildly elevated troponin, troponin secondary to atrial fibrillation and evidence of acute myocardial infarction. Patient initiated on verapamil. Current heart rate in the 70s. -Mild protein calorie malnutrition secondary to poor oral intake -Hypoglycemia secondary to not eating and poor oral intake. Will continue with Accu-Cheks to monitor for any signs of hypoglycemia. 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 ENT consulted and pending at this time. Patient will have outpatient follow-up with ENT -Hematuria, possibly due to straight catheter urine collection or attempts at indwelling Serrano catheter collection. Urology consulted recommending possible outpatient cystoscopy once mental status clears. Patient will continue with an indwelling Serrano catheter upon discharge due to retention and will have urology appointment scheduled -Asymptomatic bacteriuria, no signs of infection and will not require any antib iotics at this time. -Weight loss most likely secondary to not eating due to psychosis and poor by m outh intake -Acute renal failure secondary to dehydration and intravascular depletion probably secondary to poor by mouth intake, improved -Ketonuria secondary to starvation ketosis, improved -lactic acidosis from metformin and dehydration, improved. -Type 2 diabetes mellitus patient on sliding scale -DVT prophylaxis with subcutaneous heparin Plan: Continue with current medications and management. Psychiatry following. Neurology following. Case management and social work continue to follow as brother feels that he will need sub-acute rehab or ECF placement for his medical needs at this time. Awaiting for an accepting facility. Further recommendations to follow. Possible discharge in 24-48 hours.
[2019-12-23 19:43] LABS: Glucose,Whole Blood 226 mg/dL (75-99)
[2019-12-23] MEDS: QUEtiapine 25 MG TAB PO SCH (19:48)
[2019-12-23] MEDS: LITHIUM CARBONATE 300 MG CAP PO SCH (19:48)
[2019-12-24 04:21] LABS: Glucose,Whole Blood 170 mg/dL (75-99)
[2019-12-24 06:41] LABS: Glucose,Whole Blood 176 mg/dL (75-99)
[2019-12-24] MEDS: INSULIN ASPART (NovoLOG) 100 UNIT/ML VIAL SQ SCH ×4 (06:46→21:11)
[2019-12-24] MEDS: TAMSULOSIN 0.4 MG CAP.ER.24H PO SCH (08:13)
[2019-12-24] MEDS: VERAPAMIL SR 120 MG TABLET.ER PO SCH (08:13)
[2019-12-24] MEDS: DULoxetine HCL 30 MG CAPSULE.DR PO SCH (08:13)
[2019-12-24] MEDS: ACETAMINOPHEN TAB 325 MG TAB PO PRN (08:13)
[2019-12-24] MEDS: NICOTINE 14MG/24HR PATCH TRANSDERM SCH (08:16)
[2019-12-24 12:01] LABS: Glucose,Whole Blood 414 mg/dL (75-99)
[2019-12-24] MEDS ORDERED: VANCOMYCIN IV PER PHARMACY 1 EACH MISC MISCELLANE PRN (12:29)
--- NOTE | 2019-12-24 12:45 | P.PN ---
Subjective Progress Note Date: 12/24/19 Principal diagnosis: Patient is 74-year-old male with history of bipolar disorder in with altered mental status patient is agitated when he arrived patient was given Ativan after which his agitation were sent patient urine drug screen is negative and no evidences of infection UA is bit abnormal with some leukocyte esterase does have ketones in the urine. Patient appears to be clinically quite a bit dehydrated with dry mucous membranes and dry skin. Unable to obtain any history from the patient. Patient doesn't have any fever chills patient uses metformin at home patient does have some lactic acidosis secondary to metformin. Patient is supposed to be on antidepressant along with the lithium for bipolar disorder at home his late him levels are 0.8 appears to be taking lithium at home. He is agitated and pretty strongly moving all 4 limbs doesn't appear to have any focal weakness CT of the head showed a diffuse age-related atrophy. 12/16/2019 Patient is seen and evaluated and follow-up with a sitter at the bedside for safety as patient continues to be confused with altered mental status and multiple attempts of getting out of the bed. Patient appears quite thin and cachectic and has not been eating. Per nursing staff patient took a few bites of pudding to take medications but has not been eating any of his meals. Patient was noted to have some hematuria in his urine and urology was consulted. Per nursing staff patient had 2 different episodes of retaining urine and had straight catheterization to empty the bladder and now has an indwelling Serrano c atheter. Psychiatry following as well recommending IM Haldol as needed for agitation along with adjustments and Seroquel. Patient had an ultrasound of the bladder, renal, kidneys showing no acute changes within the kidneys and some cholelithiasis. 12/17/2019 Patient is seen in follow-up and continues to be extremely agitated and restless with multiple attempts at getting up and out of the bed. Patient initially refusing oral medications this morning although did take them later in the morning with some applesauce. Patient continues to not eat. Multiple medical consultations following. Neurology was consulted and is pending at this time. Patient underwent a CT of the head showing no acute intracranial hemorrhage or midline shift, chronic CSF attenuated bilateral subdural hygromas greater on the left than the right, diffuse age-related cerebral atrophy and mild burden nonspecific white matter changes, and extensive polypoid mucosal thickening in the posterior right nasopharynx with possibility of nasopharyngeal mass. ENT consulted and is pending at this time. Patient to continue with sitter at the bedside for safety. Blood sugars were running low due to not eating and was initiated on D5 half-normal saline and will continue to monitor blood sugars closely. 12/18/2019 Patient is seen and evaluated in follow-up and continues with a sitter at the bedside for safety. Patient is less agitated and talking more appropriately although continues to be confused and unaware of where he has. Patient is able to state who his brother is and simple commands. Psychiatry and neurology following. Patient was to undergo an MRI today although would not stay still for the procedure even with the use of IM Zyprexa. Will continue to monitor mental status closely. Patient continues to have poor oral intake although is drinking small amounts at times and has been taking medications. Neurology recommended possible transfer for neurosurgical consult although transferring facility [facility] stated no need for transfer at this time. 12/19/2019 Patient is still confused but pleasant not agitated patient has some rigidity because of which I'm holding Seroquel until psychiatric evaluated several patient. Multiple other medical issues are going on at this time patient went into A. fib spontaneously converted to sinus rhythm because of which patient is not being started on anticoagulation echocardiac exam was obtained which did not show any decreased LV function. Patient is presently in aspirin. Electrolytes are being corrected, still has dry mucous membranes remains on IV fluids. Patient had mild hypercalcemia can be secondary to dehydration because of which have been the workup PTH is elevated and antibiotic 25-hydroxy vitamin D is low. Patient may have hyperparathyroidism since his calcium has come down I'm not doing any more further workup at this time. TSH is within normal limits 12/20/2019 Patient looks much better today but the excessively sleepy probably because of a lot of antipsychotic medications. We'll can you to monitor the patient. Review of systems: Unable to obtain due to his clinical condition 12/21/2019 Patient is seen in follow-up today still confused but responds appropriately to questions and commands. Patient states he is having buttocks pain and requesting some Tylenol. Patient has been getting up with 1-2 person assistance and continues to be quite weak and shaky when ambulating. PT/OT following. Psychiatry also following. Patient underwent MRI today showing bilateral left greater than right subdural hygromas, age-related atrophic and chronic small vessel ischemic changes, no evidence for acute intracranial process, and nasopharyngeal mass noted. ENT was consulted and pending at this time. May need outpatient follow-up. Consult for Dr. Jimenez inpatient rehab placed in currently pending at this time. 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 Will await consult. 12/22/2019 Patient is seen in follow-up today and continues to be confused at times although is responding appropriately to questions and commands. Patient was seen and evaluated by Dr. Jimenez for possible inpatient rehab for continued weakness and gait dysfunction. They are concerned that this is more of a psychiatric issue as opposed to rehabilitation issue and did not feel the patient would qualify for inpatient rehab. After speaking with the brother who lives with him and is his caregiver he is agreeable to home care and does not want him to go to a subacute rehab facility. Case management following and arranging for home care services at this time. Patient continues to have an indwelling Serrano catheter and will continue in the outpatient setting until follow-up with urology as he was having significant retention noted. Prescription was written for a walker as patient's gait continues to be unsteady and weak and will benefit from a walker in the home setting. Patient has been eating and drinking more and tolerating diet with no reports of nausea or vomiting. No reports of chest pain, shortness of breath, or palpitations. Patient being followed by neurology and recommending close neurology follow-up along with neurosurgical evaluation in the outpatient setting. 12/23/2019 Patient is seen in follow up today and continues to be quite weak requiring assistance with ambulation. Patient continues to be slightly confused at times. Patient was scheduled to be discharged this afternoon, but brother feels that sub-acute rehab or a intermediate facility would be more appropriate to care for him at the time. Patient needs continued PT/OT therapy for strength and mobility along with multiple outpatient follow-ups. No overnight issues reported by nursing staff. 12/24/2019 Patient is seen and evaluated in follow-up today and continues to be quite weak although is lethargic and not feeling well today. Patient was found to have a low-grade temp of 101.3. Blood cultures and broad-spectrum IV antibiotics will be ordered and are currently pending. Patient's oxygen saturation is also 92% on room air. Will get some labs and a chest x-ray. Patient has been sleeping most of the day but is arousable. Patient not eating very well today. Objective - Vital Signs Vital signs: Vital Signs Temp 101.3 F H 12/24/19 08:10 Pulse 92 12/24/19 08:10 Resp 18 12/24/19 08:10 BP 145/59 12/24/19 08:10 Pulse Ox 92 L 12/24/19 08:10 Intake & Output 12/23/19 12/24/19 12/24/19 18:59 06:59 18:59 Output Total 700 1725 Balance -700 -1725 Weight 50 kg 47.5 kg Output: Urine 700 1725 Straight 650 Stool 0 Other: Voiding Method Indwelling Catheter Indwelling Catheter - Exam GENERAL: Patient is lethargic and fatigued, although arousable , thin built, cachectic, dry mucous membranes, more alert and responding to commands, continues to have some rigidity HEENT: Pupils are round and equally reacting to light. EOMI. No scleral icterus. No conjunctival pallor. Normocephalic, atraumatic. No pharyngeal erythema. No thyromegaly. CARDIOVASCULAR: S1 and S2 present. No murmurs, rubs, or gallops. PULMONARY: Diminished breath sounds at the bases, no wheezing or crackles appreciated. ABDOMEN: Soft, scaphoid, nontender, nondistended, normoactive bowel sounds. No palpable organomegaly. MUSCULOSKELETAL: No joint swelling or deformity. EXTREMITIES: No cyanosis, clubbing, or pedal edema. NEUROLOGICAL: Moving all 4 limbs . Diffusely weak SKIN: No rashes. - Labs CBC & Chem 7: 12/23/19 08:08 12/23/19 08:08 Labs: Abnormal Lab Results - Last 24 Hours (Table) 12/23/19 12/23/19 12/24/19 Range/Units 16:38 19:42 03:55 POC Glucose (mg/dL) 202 H 226 H 170 H (75-99) mg/dL 12/24/19 12/24/19 Range/Units 06:39 11:40 POC Glucose (mg/dL) 176 H 414 H (75-99) mg/dL Assessment and Plan Assessment: -Altered mental status, agitation most probably because of psychosis or delirium. Dehydration did improve. Neurology continues to follow the patient. There may be a component of metabolic encephalopathy from dehydration. Psychiatry following. Neurology following Repeat CT of the brain shows no changes from previous CT. EEG performed with artifact and movement although no epileptiform discharges noted. Neuro recommending serial EEGs. Underwent MRI today as previously mentioned -New-onset A. fib proximal A. fib rate controlled echocardiogram within normal limits TSH within normal limits. Cardiology evaluated the patient patient has mildly elevated troponin, troponin secondary to atrial fibrillation and evidence of acute myocardial infarction. Patient initiated on verapamil. Current heart rate in the 70s. -Fever with possible sepsis of undetermined etiology. Will obtain blood cultures and some basic labs and a chest x-ray. Will be initiated on vancomycin. We'll also repeat urinalysis with reflex to culture. And kidneys have an indwelling Serrano catheter. -Mild protein calorie malnutrition secondary to poor oral intake -Hypoglycemia secondary to not eating and poor oral intake. Will continue with Accu-Cheks to monitor for any signs of hypoglycemia. 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 ENT consulted and pending at this time. Patient will have outpatient follow-up with ENT -Hematuria, possibly due to straight catheter urine collection or attempts at indwelling Serrano catheter collection. Urology consulted recommending possible outpatient cystoscopy once mental status clears. Patient will continue with an indwelling Serrano catheter upon discharge due to retention and will have urology appointment scheduled -Asymptomatic bacteriuria, no signs of infection and will not require any antibiotics at this time. -Weight loss most likely secondary to not eating due to psychosis and poor by mouth intake -Acute renal failure secondary to dehydration and intravascular depletion pr obably secondary to poor by mouth intake, improved -Ketonuria secondary to starvation ketosis, improved -lactic acidosis from metformin and dehydration, improved. -Type 2 diabetes mellitus patient on sliding scale -DVT prophylaxis with subcutaneous heparin Plan: Continue with current medications and management. Psychiatry following. Neurology following. Fever this morning. Will obtain blood cultures and initiate broad-spectrum antibiotics. Will repeat a chest x-ray along with basic labs and a urinalysis with reflex to culture. Currently pending at this time. Case management and social work continue to follow as brother feels that he will need sub-acute rehab or ECF placement for his medical needs at this time. Awaiting for an accepting facility. Further recommendations to follow.
[2019-12-24] MEDS ORDERED: VANCOMYCIN 750 MG in SODIUM CHLORIDE 0.9% 250 ML IVPB ONE (13:00)
[2019-12-24 13:03] LABS: Basophils % (A) 0 %; Eosinophils # (A) 0.1 k/uL (0-0.7); Eosinophils % (A) 1 %; HCT 38.6 % (39.0-53.0); HGB 12.1 gm/dL (13.0-17.5); Hypochromasia Moderate; Lymphocytes # (A) 0.7 k/uL (1.0-4.8); Lymphocytes % (A) 8 %; MCH 32.2 pg (25.0-35.0); MCHC 31.4 g/dL (31.0-37.0); MCV 102.6 fL (80.0-100.0); Macrocytosis Slight; Mean Platelet Volume 8.4; Monocytes # (A) 0.5 k/uL (0-1.0); Monocytes % (A) 5 %; Neutrophils # (A) 7.4 k/uL (1.3-7.7); Neutrophils % (A) 84 %; Platelet Count 328 k/uL (150-450); RBC 3.76 m/uL (4.30-5.90); RDW 12.6 % (11.5-15.5); WBC 8.8 k/uL (3.8-10.6)
--- NOTE | 2019-12-24 13:05 | XR ---
EXAMINATION TYPE: XR chest 1V portable DATE OF EXAM: 12/24/2019 HISTORY: Shortness of breath. COMPARISON: 12/07/2019 TECHNIQUE: Single view of the chest is submitted. FINDINGS: Demonstrated are scattered senescent parenchymal change. New right middle lobe infiltrate noted. Correlate for pneumonia. The heart is stable. Hilar and mediastinal structures are within normal limits. Degenerative changes are seen of the dorsal spine. IMPRESSION: 1. New right middle lobe infiltrate noted. Correlate for pneumonia.
[2019-12-24 13:13] LABS: African American GFR (CKD) >90 (>60 ml/min/1.73 sqM); Anion Gap 7 mmol/L; Blood Urea Nitrogen 20 mg/dL (9-20); Calcium 8.9 mg/dL (8.4-10.2); Carbon Dioxide 28 mmol/L (22-30); Chloride 103 mmol/L (98-107); Glucose 375 mg/dL (74-99); Non-African American GFR(CKD) 79 (>60 ml/min/1.73 sqM); Potassium 4.1 mmol/L (3.5-5.1); Sodium 138 mmol/L (137-145)
[2019-12-24 16:48] LABS: Glucose,Whole Blood 181 mg/dL (75-99)
--- NOTE | 2019-12-24 17:05 | P.PN ---
Subjective Progress Note Date: 12/24/19 Patient was seen for a follow-up. He is much more alert and awake. Speaking much more clearly. States "I don't feel good". States appetite is not as good. He does have a little headache. Denies chest pain. Patient's telemetry showing sinus rhythm and 60-70. Patient had an EEG, which showed some background slowing, no epileptiform activity. Objective - Vital Signs Vital signs: Vital Signs Temp 101.3 F H 12/24/19 08:10 Pulse 92 12/24/19 08:10 Resp 18 12/24/19 08:10 BP 145/59 12/24/19 08:10 Pulse Ox 92 L 12/24/19 08:10 Intake & Output 12/23/19 12/24/19 12/24/19 18:59 06:59 18:59 Intake Total 480 Output Total 700 1725 500 Balance -700 -1725 -20 Weight 50 kg 47.5 kg Intake: Oral 480 Output: Urine 700 1725 500 Straight 650 Stool 0 Other: Voiding Method Indwelling Catheter Indwelling Catheter - Exam Patient is fully alert and awake, in no distress. Patient's speech is much more clear. No aphasia. Patient knows that he is in [place] in [place]. Could not tell what month or year is it. He could not name the president although when I gave prompt, he did state was Trump. On cranial nerve examination, pupils are round and reacting, visual appears full. Patient's face is symmetric. Muscle strength is normal in the arms bilaterally. Hip flexion is weak, ankles and toes appears normal. - Labs CBC & Chem 7: 12/24/19 12:43 12/24/19 12:43 Labs: Abnormal Lab Results - Last 24 Hours (Table) 12/23/19 12/24/19 12/24/19 Range/Units 19:42 03:55 06:39 RBC (4.30-5.90) m/uL Hgb (13.0-17.5) gm/dL Hct (39.0-53.0) % MCV (80.0-100.0) fL Lymphocytes # (1.0-4.8) k/uL Glucose (74-99) mg/dL POC Glucose (mg/dL) 226 H 170 H 176 H (75-99) mg/dL 12/24/19 12/24/19 12/24/19 Range/Units 11:40 12:43 12:43 RBC 3.76 L (4.30-5.90) m/uL Hgb 12.1 L (13.0-17.5) gm/dL Hct 38.6 L (39.0-53.0) % MCV 102.6 H (80.0-100.0) fL Lymphocytes # 0.7 L (1.0-4.8) k/uL Glucose 375 H (74-99) mg/dL POC Glucose (mg/dL) 414 H (75-99) mg/dL 12/24/19 Range/Units 16:36 RBC (4.30-5.90) m/uL Hgb (13.0-17.5) gm/dL Hct (39.0-53.0) % MCV (80.0-100.0) fL Lymphocytes # (1.0-4.8) k/uL Glucose (74-99) mg/dL POC Glucose (mg/dL) 181 H (75-99) mg/dL Assessment and Plan Assessment: * 74-year-old male admitted with altered mental status and was diagnosed with bilateral subdural hygroma. * Thrombocytopenia, mild degree. * Macrocytosis Plan: * MRI of the brain revealed evidence of bilateral chronic subdural hygromas. On the left side, there is left frontal to left occipital parietal extension with maximum thickness of 1.2 cm. On the right side, there is frontal parietal extension with maximal thickness of 1.1 cm. Will repeat computed tomography scan of the head in morning. * No antiplatelets or anticoagulants. * B12 1077, folate 9.9, both normal. * Suggest neurosurgical consultation. Patient may not need craniotomy. However if neurosurgery can review the MRI and clear the patient for discharge and follow-up as outpatient will be fine as well. * Repeat CT head in a.m. * Patient's vitamin D level is very low 4.7. Suggest replacement.
[2019-12-24 21:02] LABS: Glucose,Whole Blood 215 mg/dL (75-99)
[2019-12-24] MEDS: LITHIUM CARBONATE 300 MG CAP PO SCH (21:11)
[2019-12-24] MEDS: QUEtiapine 25 MG TAB PO SCH (21:11)
[2019-12-25] MEDS ORDERED: VANCOMYCIN 750 MG in SODIUM CHLORIDE 0.9% 250 ML IVPB SCH (06:00)
[2019-12-25 06:05] LABS: Glucose,Whole Blood 172 mg/dL (75-99)
[2019-12-25] MEDS: INSULIN ASPART (NovoLOG) 100 UNIT/ML VIAL SQ SCH ×3 (06:36→17:32)
--- NOTE | 2019-12-25 07:27 | CT ---
EXAMINATION TYPE: CT brain wo con DATE OF EXAM: 12/25/2019 COMPARISON: 12/17/2019 HISTORY: Followup SDH, altered mental status CT DLP: 1099.4 mGycm Automated exposure control for dose reduction was used. FINDINGS: There is redemonstration of chronic appearing subdural hygromas that are CSF attenuated. These measur e up to 1.3 cm on the left and 1.0 cm on the right. There is progressive prominence particularly on t he right comparison to the exam of 12/07/2019. However no acute high density component is seen. There is no midline shift. No acute intracranial hemorrhage is identified. Patchy areas of hypoattenuation is seen within the periventricular white matter are similar to the priors with sulcal prominence at t he vertex compatible with age-related volume loss. Globes are symmetric and unchanged. 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 Mild mucosal thi ckening of the left maxillary sinus and sphenoid sinus with moderate mucosal thickening in the ethmoi d sinuses are seen and hypoplasia of the frontal sinuses. Mastoid air cells are well aerated. Calvari um is intact. IMPRESSION: 1. THE SUBDURAL HYGROMAS REMAIN CEREBROSPINAL FLUID ATTENUATED AND APPEAR CHRONIC BY THAT NATURE, HOW EVER THERE IS INCREASING PROMINENCE PARTICULARLY ON THE RIGHT OF THE EXTRA-AXIAL FLUID COLLECTION IN COMPARISON TO 12/15/2019 PREVIOUSLY MEASURING 0.6 CM AND NOW MEASURING 1.0 CM. THE LEFT EXTRA-AXIAL FL UID COLLECTION MEASURES APPROXIMATELY 1. 3 CM OPPOSED TO 1.1 CM ON 12/15/2019. NO MIDLINE SHIFT. [place] 2. AGAIN DIRECT VISUALIZATION AND/OR ENT CONSULTATION RECOMMENDED FOR A RIGHT POSTERIOR NASOPHARYNGEA L MASS.
[2019-12-25 07:30] LABS: Basophils % (A) 0 %; Eosinophils # (A) 0.1 k/uL (0-0.7); Eosinophils % (A) 1 %; HCT 36.8 % (39.0-53.0); HGB 11.7 gm/dL (13.0-17.5); Lymphocytes % (A) 11 %; MCH 31.7 pg (25.0-35.0); MCHC 31.9 g/dL (31.0-37.0); MCV 99.3 fL (80.0-100.0); Mean Platelet Volume 8.3; Monocytes # (A) 0.5 k/uL (0-1.0); Monocytes % (A) 6 %; Neutrophils # (A) 6.9 k/uL (1.3-7.7); Neutrophils % (A) 80 %; Platelet Count 281 k/uL (150-450); RDW 12.7 % (11.5-15.5); WBC 8.7 k/uL (3.8-10.6)
[2019-12-25 07:38] LABS: Calcium 9.2 mg/dL (8.4-10.2); Potassium 4.1 mmol/L (3.5-5.1)
[2019-12-25] MEDS: NICOTINE 14MG/24HR PATCH TRANSDERM SCH (08:52)
[2019-12-25] MEDS: DULoxetine HCL 30 MG CAPSULE.DR PO SCH (08:52)
[2019-12-25] MEDS: VERAPAMIL SR 120 MG TABLET.ER PO SCH (08:52)
[2019-12-25] MEDS: TAMSULOSIN 0.4 MG CAP.ER.24H PO SCH (08:52)
[2019-12-25 09:13] VITALS: RESP 16; TEMP 98.2
[2019-12-25 10:37] VITALS: BMI 16.0
[2019-12-25 11:51] LABS: Glucose,Whole Blood 219 mg/dL (75-99)
--- NOTE | 2019-12-25 12:38 | P.DS ---
Providers Date of admission: 12/15/19 11:39 Expected date of discharge: 12/25/19 Attending physician: Darlene Blancas Consults: 12/15/19 11:53 Consult Physician Routine Consulting Provider: Jack Oliva Consult Reason/Comments: Acute psychosis Do you want consulting provider notified?: Yes 12/16/19 09:25 Consult Physician Urgent Consulting Provider: Norberto Wagner Consult Reason/Comments: hematuria/ possible enlarged prostate/ catheter diffiulties Do you want consulting provider notified?: Yes 12/17/19 11:12 Consult Physician Urgent Consulting Provider: Shakeel Arriola Consult Reason/Comments: possible nasopharyngeal mass noted on CT Do you want consulting provider notified?: Yes 12/17/19 11:13 Consult Physician Routine Consulting Provider: Becka Kraft Consult Reason/Comments: altered mental status Do you want consulting provider notified?: Yes 12/19/19 05:42 Consult Physician Stat Consulting Provider: Pravin Estrada Consult Reason/Comments: new onset afib Do you want consulting provider notified?: Yes 12/21/19 12:39 Consult Physician Stat Consulting Provider: Dennis Jimenez Consult Reason/Comments: possible inpatient rehab/ gait dysfunction/ weakness Do you want consulting provider notified?: Yes Primary care physician: Alex Hardin Hospital Course: Final diagnosis -Altered mental status, agitation most probably because of psychosis or delirium and Dehydration. -New-onset A. fib proximal A. fib rate controlled -Fever with possible sepsis of undetermined etiology, ruled out. Fever improved. -Mild protein calorie malnutrition secondary to poor oral intake -Hypoglycemia secondary to not eating and poor oral intake. 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 -Type 2 diabetes mellitus patient on sliding scale -DVT prophylaxis Discharge disposition Patient is being discharged in a stable condition with guarded prognosis to [facility] continued PT/OT therapy. Patient will also need to follow- up with Dr. Hardin along with urology, neurosurgery, neurology, and cardiology in the outpatient setting. Patient will continue on a short course of oral antibiotics in the form of Ceftin twice daily for the next 5 days and then may discontinue. Total time taken is 35 minutes. History of present illness This is a 74-year-old male who was recently admitted with increased agitation, altered mental status, and confusion and was being closely monitored. Multiple consultations were following. Patient was seen and evaluated by psychiatry with multiple medication adjustments. Patient was in a state of psychosis or delirium possibly due to medications and/or dehydration. Patient did have CAT scan along with MRI of the brain which showed no acute intracranial hemorrhage or midline shift, chronic CSF attenuated bilateral subdural hygromas greater on the left than the right, diffuse age-related cerebral atrophy and mild burden nonspecific white matter changes, and extensive polypoid mucosal thickening in the posterior right nasopharynx with possibility of a nasopharyngeal mass. Neurology evaluated the patient recommending outpatient neurosurgery evaluation as well. Dr. Parker neurosurgery discussed the case in the MRI findings and is agreeable to outpatient follow-up. 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 Patient will continue with an indwelling Serrano catheter as he was having retention and needs urology follow-up in the outpatient setting. Patient will need continued PT/OT therapy for strength and mobility. Patient continues to be confused although mentation has improved. Patient developed a low-grade fever of 101.3 yesterday and obtained a chest x-ray showing a new right middle lobe infiltrate and was initiated on IV ceftriaxone. Patient will continue on oral Ceftin twice daily for the next 5 days and then may discontinue. Patient also instructed to increase activity as tolerated and continue to cough and deep breathe. A prescription was provided for a walker as the patient's gait continues to be unsteady requiring assistance. Currently no reports of chest pain, shortness of breath, or palpitations. Patient is afebrile and has been for over 24 hours now. No reports of nausea or vomiting and patient is tolerating diet. Patient will need blood sugars monitored before meals at bedtime and treat accordingly with sliding scale. On exam vital signs are stable. Temp is 98.2F, pulse is 75, respirations are 16, blood pressure is 123/64, oxygen saturation is 95% on room air. Cardio S1, S2 are present. Respiratory system shows diminished breath sounds at the bases with no wheezing or rhonchi noted. Abdomen is soft, thin, and non-tender. Nervous system shows diffuse weakness. Please refer to medication reconciliation sheet for a list of medications. Patient Condition at Discharge: Fair Plan - Discharge Summary Discharge Rx Participant: Yes New Discharge Prescriptions: New Verapamil Sr [Isoptin Sr] 120 mg PO DAILY 30 Days #30 tablet.er [place] Carbonate 300 mg PO HS 30 Days #30 cap QUEtiapine [SEROquel] 25 mg PO HS 30 Days #30 tab Acetaminophen Tab [Tylenol] 650 mg PO Q6HR PRN #30 tab PRN Reason: Mild Pain Or Fever > 100.5 Cefuroxime Axetil [Ceftin] 500 mg PO BID 5 Days #10 tab Nicotine 14Mg/24Hr Patch [Habitrol] 1 patch TRANSDERM DAILY patch INSULIN ASPART (NovoLOG) [NovoLOG (formulary)] 0 unit SQ ACHS vial Continue DULoxetine HCL [Cymbalta] 30 mg PO DAILY Tamsulosin HCl [Flomax] 0.8 mg PO HS Discontinued clonazePAM [KlonoPIN] 2 mg PO HS metFORMIN HCL [Glucophage] 850 mg PO BID [place] Carbonate 600 mg PO DAILY traZODone HCL [Desyrel] 100 mg PO HS Discharge Medication List DULoxetine HCL [Cymbalta] 30 mg PO DAILY 04/11/17 [History] Tamsulosin HCl [Flomax] 0.8 mg PO HS 12/15/19 [History] Acetaminophen Tab [Tylenol] 650 mg PO Q6HR PRN #30 tab 12/23/19 [Rx] [place] Carbonate 300 mg PO HS 30 Days #30 cap 12/23/19 [Rx] QUEtiapine [SEROquel] 25 mg PO HS 30 Days #30 tab 12/23/19 [Rx] Verapamil Sr [Isoptin Sr] 120 mg PO DAILY 30 Days #30 tablet.er 12/23/19 [Rx] Cefuroxime Axetil [Ceftin] 500 mg PO BID 5 Days #10 tab 12/25/19 [Rx] INSULIN ASPART (NovoLOG) [NovoLOG (formulary)] 0 unit SQ ACHS vial 12/25/19 [Rx] Nicotine 14Mg/24Hr Patch [Habitrol] 1 patch TRANSDERM DAILY patch 12/25/19 [Rx] Follow up Appointment(s)/Referral(s): Alex Hardin MD [Primary Care Provider] - 12/25/19 10:20 am (Dr Hardin will call you for this appointment over the phone. ) [facility], [NON-STAFF] - Vivienne Acevedo MD [Medical Doctor] - 1 Week (The office will call to schedule follow up appointment. ) Paco Randolph MD [STAFF PHYSICIAN] - 12/29/19 12:15 pm Jake Velázquez MD [STAFF PHYSICIAN] - 1 Week (The office will call you to schedule follow up appointment. ) Patient Instructions/Handouts: Dehydration (DC), Altered Mental Status (GEN) Activity/Diet/Wound Care/Special Instructions: Patient is going to [facility] on the siddiqui Activity as tolerated Continue with antibiotics for the next 5 days and then may discontinue Continue to monitor blood sugars before meals and at bedtime and treat accordingly with sliding scale Patient to follow-up with Dr. Parker neurosurgery and call to make an appointment at [phone] (nurse practitioner [place]) Continue with indwelling Serrano catheter until urology appointment Continue with Glucerna 3 times daily with meals patient prefers chocolate Discharge Disposition: TRANSFER TO SNF/ECF
--- NOTE | 2019-12-25 15:38 | P.PN ---
Subjective Progress Note Date: 12/25/19 Patient was seen for a follow-up. He is very alert and awake, pleasant. Speaking fairly clearly. Offers no complaints. Denies chest pain. Patient's telemetry showing sinus rhythm and 60-70. Discussed with Dr. Blancas. No history of atrial fibrillation. Patient did have atrial flutter on one of the EKGs, but no A. fib. Patient had an EEG, which showed some background slowing, no epileptiform act ivity. Objective - Vital Signs Vital signs: Vital Signs Temp 98.2 F 12/25/19 08:00 Pulse 70 12/25/19 12:00 Resp 16 12/25/19 12:00 BP 131/53 12/25/19 12:00 Pulse Ox 95 12/25/19 12:00 Intake & Output 12/24/19 12/25/19 12/25/19 18:59 06:59 18:59 Intake Total 480 237 960 Output Total 500 3275 1350 Balance -20 -3038 -390 Weight 46.5 kg 46.5 kg Intake: Oral 480 237 960 Output: Urine 500 3275 1350 Stool 0 0 0 Other: Voiding Method Indwelling Catheter Indwelling Catheter Indwelling Catheter # Voids 1 - Exam Patient is fully alert and awake, in no distress. Patient's speech is much more clear. No aphasia. Patient knows that he is in [place] in [place]. Could not tell what month or year is it. States that he was asked the same questions yesterday and he does not know. On cranial nerve examination, pupils are round and reacting, visual appears full. Patient's face is symmetric. Muscle strength is normal in the arms bilaterally. Hip flexion is weak, ankles and toes appears normal. - Labs CBC & Chem 7: 12/25/19 06:38 12/25/19 06:38 Labs: Abnormal Lab Results - Last 24 Hours (Table) 12/24/19 12/24/19 12/25/19 Range/Units 16:36 21:00 06:03 RBC (4.30-5.90) m/uL Hgb (13.0-17.5) gm/dL Hct (39.0-53.0) % BUN (9-20) mg/dL Glucose (74-99) mg/dL POC Glucose (mg/dL) 181 H 215 H 172 H (75-99) mg/dL 12/25/19 12/25/19 12/25/19 Range/Units 06:38 06:38 11:50 RBC 3.70 L (4.30-5.90) m/uL Hgb 11.7 L (13.0-17.5) gm/dL Hct 36.8 L (39.0-53.0) % BUN 21 H (9-20) mg/dL Glucose 159 H (74-99) mg/dL POC Glucose (mg/dL) 219 H (75-99) mg/dL Microbiology - Last 24 Hours (Table) 12/24/19 12:43 Blood Culture - Preliminary Blood No Growth after 24 hours Assessment and Plan Assessment: * Bilateral subdural hygroma. * Thrombocytopenia, resolved * Possible mild pneumonia on antibiotics. * Macrocytosis Plan: * Repeat computed tomography scan of head from this morning showed no change in the size of subdural hygromas as compared to the MRI of brain from 12/21/2019. * MRI of the brain 12/21/2019 revealed evidence of bilateral chronic subdural h ygromas. On the left side, there is left frontal to left occipital parietal extension with maximum thickness of 1.2 cm. On the right side, there is frontal parietal extension with maximal thickness of 1.1 cm. * No antiplatelets or anticoagulants. * B12 1077, folate 9.9, both normal. * Patient being discharged today, to follow up with neurosurgery as outpatient. * Patient's vitamin D level is very low 4.7. Suggest replacement.
[2019-12-25 17:05] VITALS: BP 150/75; PULSE 75
[2019-12-25 17:15] LABS: Glucose,Whole Blood 157 mg/dL (75-99)
--- NOTE | 2019-12-28 13:26 | CDI ---
Documentation Clarification Form Date: 12/28/19 From: Lexi Stoddard CCS Phone: If you have a question about this query, please contact Sanam Mccoy, Fourth Mate at [phone] between 8am and 5pm. Admit Date: 12/15/19 Discharge Date: 12/25/19 Patient Name: Dann Crum Visit Number: [id number] ATTENTION: The Clinical Documentation Specialists (CDI) and [facility] Coding Staff appreciate your assistance in clarifying documentation. Please respond to the clarification below the line at the bottom and electronically sign. The CDI & [facility] Coding staff will review the response and follow-up if needed. Please note: Queries are made part of the Legal Health Record. If you have any questions, please contact the author of this message via ITS. Dear Dr. Blancas, Myocardial infarction is documented in the: PNs Progress Note 12/18-12/23 document: Cardiology evaluated the patient patient has mildly elevated troponin, troponin secondary to atrial fibrillation and evidence of acute myocardial infarction. Patient History/Risk Factors: [place], Dehydration, AFIB, Malnutrition, COPD, Bipolar Clinical Indicators: Elevated troponin Troponin: 0.070, 0.048 EKG Results: Sinus Bradycardia Treatment: Verapamil Sr 120 mg PO daily Consult: Gary In order to capture the severity of condition and necessary documentation specificity, please clarify: Type of Infarction: STEMI NSTEMI ID Type II Unable to determine Other Condition, please specify No myocardial infarction, nonspecific elevation of troponin MTDD
== END 2019-12-25 17:46 | DRG 682 ==
LOC: EC 09:40 → 5NMEDONC 11:39 → 3SCARD 12-19 05:55
PROVIDERS: ADMIT Internal Medicine; ATTEND Internal Medicine
DX: N17.9 Acute kidney failure, unspecified (principal); G93.41 Metabolic encephalopathy; R40.2222 Coma scale, best verbal response, incomprehensible words, at arrival to emergency department; I62.03 Nontraumatic chronic subdural hemorrhage; J18.9 Pneumonia, unspecified organism; E44.1 Mild protein-calorie malnutrition; R64 Cachexia; E87.2 Acidosis; I48.4 Atypical atrial flutter; R47.01 Aphasia; J44.0 Chronic obstructive pulmonary disease with (acute) lower respiratory infection; T76.01XA Adult neglect or abandonment, suspected, initial encounter; Z68.1 Body mass index [BMI] 19.9 or less, adult; F31.30 Bipolar disorder, current episode depressed, mild or moderate severity, unspecified; F23 Brief psychotic disorder; T83.83XA Hemorrhage due to genitourinary prosthetic devices, implants and grafts, initial encounter; Z11.59 Encounter for screening for other viral diseases; E11.649 Type 2 diabetes mellitus with hypoglycemia without coma; I27.20 Pulmonary hypertension, unspecified; D69.6 Thrombocytopenia, unspecified; R62.7 Adult failure to thrive; E11.51 Type 2 diabetes mellitus with diabetic peripheral angiopathy without gangrene; E11.65 Type 2 diabetes mellitus with hyperglycemia; I48.0 Paroxysmal atrial fibrillation; E78.5 Hyperlipidemia, unspecified; E21.3 Hyperparathyroidism, unspecified; R40.2362 Coma scale, best motor response, obeys commands, at arrival to emergency department; E86.0 Dehydration; R40.2142 Coma scale, eyes open, spontaneous, at arrival to emergency department; T38.3X5A Adverse effect of insulin and oral hypoglycemic [antidiabetic] drugs, initial encounter; F17.200 Nicotine dependence, unspecified, uncomplicated; G47.00 Insomnia, unspecified; R31.29 Other microscopic hematuria; F41.1 Generalized anxiety disorder; J32.4 Chronic pansinusitis; E87.6 Hypokalemia; R26.9 Unspecified abnormalities of gait and mobility; K80.20 Calculus of gallbladder without cholecystitis without obstruction; R82.71 Bacteriuria; R79.89 Other specified abnormal findings of blood chemistry; R31.9 Hematuria, unspecified; I34.0 Nonrheumatic mitral (valve) insufficiency; D75.89 Other specified diseases of blood and blood-forming organs; N40.1 Benign prostatic hyperplasia with lower urinary tract symptoms; R33.8 Other retention of urine; Z74.1 Need for assistance with personal care; Z78.1 Physical restraint status; Z71.3 Dietary counseling and surveillance; Z79.899 Other long term (current) drug therapy; Z79.84 Long term (current) use of oral hypoglycemic drugs
CPT/HCPCS: 36415; 70450; 70553; 71045; 76770; 80048; 80053; 80178; 80306; 80320; 81001; 82140; 82306; 82607; 82746; 82803; 83605; 83735; 83970; 84153; 84443; 84484; 85025; 85610; 85730; 87040; 87635; 93005; 93306; 95816; 96374; 96375; 99285

== ENCOUNTER 2020-01-11 17:04 | Inpatient (IN) | payer MEDICARE ==
[2020-01-11] MEDS ORDERED: SODIUM CHLORIDE 0.9% 500 ML 500 ML IV STA (18:07)
--- NOTE | 2020-01-11 18:11 | ED ---
General Adult HPI - General Chief complaint: Extremity Problem,Nontraumatic Stated complaint: rectal pain Time Seen by Provider: 01/11/20 17:19 Source: patient, EMS, RN notes reviewed Mode of arrival: EMS Limitations: language barrier - History of Present Illness Initial comments: 74-year-old male with a past medical history of insomnia, bipolar disorder, alcoholism, depression presents to the emergency department for a chief complaint of pain. Patient states he has had severe rectal and lower abdominal pain. This is been ongoing this week. Patient is a very poor historian but is able to communicate. I call nurse at [facility] in [facility] to get more information. She reports patient's pain has been uncontrolled and Dr. Soto wanted to have a GI specialist examine him. Patient is complaining of pain in his rectum. Dr. Soto was hoping patient cannot proctoscopy. pt was recently admitted for confusion and had multiple medication adjustments by psychiatry. He was in a state of psychosis possibly due to medications and/or dehydration. MRI of the brain was nonacute. - Related Data Home Medications Medication Instructions Recorded Confirmed DULoxetine HCL [Cymbalta] 30 mg PO DAILY 04/11/17 12/15/19 Tamsulosin HCl [Flomax] 0.8 mg PO HS 12/15/19 12/15/19 Previous Rx's Medication Instructions Recorded Acetaminophen Tab [Tylenol] 650 mg PO Q6HR PRN #30 tab 12/23/19 [place] Carbonate 300 mg PO HS 30 Days #30 cap 12/23/19 QUEtiapine [SEROquel] 25 mg PO HS 30 Days #30 tab 12/23/19 Verapamil Sr [Isoptin Sr] 120 mg PO DAILY 30 Days #30 12/23/19 tablet.er Cefuroxime Axetil [Ceftin] 500 mg PO BID 5 Days #10 tab 12/25/19 INSULIN ASPART (NovoLOG) [NovoLOG 0 unit SQ ACHS vial 12/25/19 (formulary)] Nicotine 14Mg/24Hr Patch [Habitrol] 1 patch TRANSDERM DAILY patch 12/25/19 Allergies Allergy/AdvReac Type Severity Reaction Status Date / Time No Known Allergies Allergy Verified 12/15/19 14:12 Review of Systems ROS Statement: Those systems with pertinent positive or pertinent negative responses have been documented in the HPI. ROS Other: All systems not noted in ROS Statement are negative. Past Medical History Past Medical History: Diabetes Mellitus Additional Past Medical History / Comment(s): insomnia, bipolar disorder, remote history of ETOH, smoker,depression History of Any Multi-Drug Resistant Organisms: None Reported Past Surgical History: No Surgical Hx Reported Past Psychological History: Bipolar, Depression Smoking Status: Current every day smoker Past Alcohol Use History: Heavy Past Drug Use History: None Reported - Past Family History Father Family Medical History: Unable to Obtain General Exam Limitations: language barrier General appearance: alert, in no apparent distress Head exam: Present: atraumatic, normocephalic, normal inspection Eye exam: Present: normal appearance, PERRL, EOMI. Absent: scleral icterus, conjunctival injection, periorbital swelling ENT exam: Present: normal exam, mucous membranes moist Neck exam: Present: normal inspection, full ROM. Absent: tenderness, meningismus, lymphadenopathy Respiratory exam: Present: normal lung sounds bilaterally. Absent: respiratory distress, wheezes, rales, rhonchi, stridor Cardiovascular Exam: Present: regular rate, normal rhythm, normal heart sounds. Absent: systolic murmur, diastolic murmur, rubs, gallop, clicks GI/Abdominal exam: Present: soft, normal bowel sounds. Absent: distended, tenderness, guarding, rebound, rigid Rectal exam: Present: tenderness (Significant pain with rectal exam) Course Vital Signs 01/11/20 01/11/20 17:15 17:24 Temperature 98.1 F Pulse Rate 56 L Respiratory 20 20 Rate Blood Pressure 114/77 O2 Sat by Pulse 99 Oximetry Medical Decision Making - Medical Decision Making Vitals are stable. CBC CMP unremarkable. Urinalysis unremarkable. Chest x-ray shows an improving pneumonia. Keep patient currently taking Ceftin. CT abdomen and pelvis with contrast showed a rectal fecal impaction with retained fecal material throughout the large bowel causing distention of the small bowel. I did perform rectal exam however and unable to reach disimpaction. Patient was given enema and will be given dose of lactulose. Narcotics will be held as this is likely exacerbating patient's problem. Discussed case with Alex SEGURA of [facility]. Agreeable with this plan. - Lab Data Result diagrams: 01/11/20 18:29 01/11/20 18:29 Lab Results 01/11/20 01/11/20 01/11/20 Range/Units 18:29 18:29 18:29 WBC 5.4 (3.8-10.6) k/uL RBC 3.59 L (4.30-5.90) m/uL Hgb 11.9 L (13.0-17.5) gm/dL Hct 35.5 L (39.0-53.0) % MCV 98.8 (80.0-100.0) fL MCH 33.1 (25.0-35.0) pg MCHC 33.5 (31.0-37.0) g/dL RDW 13.0 (11.5-15.5) % Plt Count 235 (150-450) k/uL Neutrophils % 53 % Lymphocytes % 31 % Monocytes % 9 % Eosinophils % 3 % Basophils % 1 % Neutrophils # 2.9 (1.3-7.7) k/uL Lymphocytes # 1.7 (1.0-4.8) k/uL Monocytes # 0.5 (0-1.0) k/uL Eosinophils # 0.2 (0-0.7) k/uL Basophils # 0.0 (0-0.2) k/uL Sodium 135 L (137-145) mmol/L Potassium 4.7 (3.5-5.1) mmol/L Chloride 101 (98-107) mmol/L Carbon Dioxide 33 H (22-30) mmol/L Anion Gap 1 mmol/L BUN 19 (9-20) mg/dL Creatinine 0.95 (0.66-1.25) mg/dL Est GFR (CKD-EPI)AfAm >90 (>60 ml/min/1.73 sqM) Est GFR (CKD-EPI)NonAf 78 (>60 ml/min/1.73 sqM) Glucose 158 H (74-99) mg/dL Calcium 9.2 (8.4-10.2) mg/dL Total Bilirubin 0.2 (0.2-1.3) mg/dL AST 18 (17-59) U/L ALT 19 (4-49) U/L Alkaline Phosphatase 65 (38-126) U/L Total Protein 5.6 L (6.3-8.2) g/dL Albumin 3.1 L (3.5-5.0) g/dL Amylase 65 (30-110) U/L Lipase 32 (23-300) U/L Urine Color Light Yellow Urine Appearance Clear (Clear) Urine pH 6.5 (5.0-8.0) Ur Specific [place] 1.009 (1.001-1.035) Urine Protein Negative (Negative) Urine Glucose (UA) Trace H (Negative) Urine Ketones Negative (Negative) Urine Blood Negative (Negative) Urine Nitrite Negative (Negative) Urine Bilirubin Negative (Negative) Urine Urobilinogen <2.0 (<2.0) mg/dL Ur Leukocyte Esterase Negative (Negative) Stool Occult Blood (Negative) 01/11/20 Range/Units 19:00 WBC (3.8-10.6) k/uL RBC (4.30-5.90) m/uL Hgb (13.0-17.5) gm/dL Hct (39.0-53.0) % MCV (80.0-100.0) fL MCH (25.0-35.0) pg MCHC (31.0-37.0) g/dL RDW (11.5-15.5) % Plt Count (150-450) k/uL Neutrophils % % Lymphocytes % % Monocytes % % Eosinophils % % Basophils % % Neutrophils # (1.3-7.7) k/uL Lymphocytes # (1.0-4.8) k/uL Monocytes # (0-1.0) k/uL Eosinophils # (0-0.7) k/uL Basophils # (0-0.2) k/uL Sodium (137-145) mmol/L Potassium (3.5-5.1) mmol/L Chloride (98-107) mmol/L Carbon Dioxide (22-30) mmol/L Anion Gap mmol/L BUN (9-20) mg/dL Creatinine (0.66-1.25) mg/dL Est GFR (CKD-EPI)AfAm (>60 ml/min/1.73 sqM) Est GFR (CKD-EPI)NonAf (>60 ml/min/1.73 sqM) Glucose (74-99) mg/dL Calcium (8.4-10.2) mg/dL Total Bilirubin (0.2-1.3) mg/dL AST (17-59) U/L ALT (4-49) U/L Alkaline Phosphatase (38-126) U/L Total Protein (6.3-8.2) g/dL Albumin (3.5-5.0) g/dL Amylase (30-110) U/L Lipase (23-300) U/L Urine Color Urine Appearance (Clear) Urine pH (5.0-8.0) Ur Specific [place] (1.001-1.035) Urine Protein (Negative) Urine Glucose (UA) (Negative) Urine Ketones (Negative) Urine Blood (Negative) Urine Nitrite (Negative) Urine Bilirubin (Negative) Urine Urobilinogen (<2.0) mg/dL Ur Leukocyte Esterase (Negative) Stool Occult Blood Negative (Negative) Disposition Clinical Impression: Constipation, Fecal impaction in rectum Disposition: ADMITTED IP TO THIS HOSP Condition: Fair Is patient prescribed a controlled substance at d/c from ED?: No Referrals: Hermelindo Soto MD [Primary Care Provider] - 1-2 days Time of Disposition: 21:09
[2020-01-11 19:02] LABS: Basophils % (A) 1 %; Eosinophils # (A) 0.2 k/uL (0-0.7); Eosinophils % (A) 3 %; HCT 35.5 % (39.0-53.0); HGB 11.9 gm/dL (13.0-17.5); Lymphocytes # (A) 1.7 k/uL (1.0-4.8); Lymphocytes % (A) 31 %; MCH 33.1 pg (25.0-35.0); MCHC 33.5 g/dL (31.0-37.0); MCV 98.8 fL (80.0-100.0); Mean Platelet Volume 8.1; Monocytes # (A) 0.5 k/uL (0-1.0); Monocytes % (A) 9 %; Neutrophils # (A) 2.9 k/uL (1.3-7.7); Neutrophils % (A) 53 %; Platelet Count 235 k/uL (150-450); RBC 3.59 m/uL (4.30-5.90); WBC 5.4 k/uL (3.8-10.6)
--- NOTE | 2020-01-11 19:03 | XR ---
EXAMINATION TYPE: XR chest 1V portable DATE OF EXAM: 01/11/2020 COMPARISON: 12/24/2019 HISTORY: Short of breath. Pneumonia. TECHNIQUE: FINDINGS: There is some mild airspace infiltrate right lower lobe. The other lung lewis are fairly c lear. Heart is normal. There are no hilar masses. Bony thorax is intact. IMPRESSION: Right lower lobe pneumonia slightly improved compared to last exam. Normal heart.
[2020-01-11 19:05] LABS: Appearance,Urine Clear (Clear); Bilirubin,Urine Negative (Negative); Blood,Urine Negative (Negative); Color,Urine Light Yellow; Glucose,Urine (UA) Trace (Negative); Ketones,Urine Negative (Negative); Leukocyte Esterase,Urine Negative (Negative); Nitrite,Urine Negative (Negative); PH, Urine 6.5 (5.0-8.0); Protein,Urine Negative (Negative); Specific Gravity,Urine 1.009 (1.001-1.035); Urobilinogen,Urine <2.0 mg/dL (<2.0)
[2020-01-11 19:14] LABS: ALT 19 U/L (4-49); AST 18 U/L (17-59); African American GFR (CKD) >90 (>60 ml/min/1.73 sqM); Albumin 3.1 g/dL (3.5-5.0); Alkaline Phosphatase 65 U/L (38-126); Amylase 65 U/L (30-110); Anion Gap 1 mmol/L; Blood Urea Nitrogen 19 mg/dL (9-20); Calcium 9.2 mg/dL (8.4-10.2); Carbon Dioxide 33 mmol/L (22-30); Chloride 101 mmol/L (98-107); Glucose 158 mg/dL (74-99); Non-African American GFR(CKD) 78 (>60 ml/min/1.73 sqM); Potassium 4.7 mmol/L (3.5-5.1); Sodium 135 mmol/L (137-145); Total Bilirubin 0.2 mg/dL (0.2-1.3); Total Protein 5.6 g/dL (6.3-8.2)
[2020-01-11] MEDS ORDERED: MORPHINE SULFATE 4 MG/ML SYRINGE IVP STA (19:47)
--- NOTE | 2020-01-11 20:22 | CT ---
EXAMINATION TYPE: CT abdomen pelvis w con DATE OF EXAM: 01/11/2020 COMPARISON: None HISTORY: Abdominal pain. CT DLP: 540.8 mGycm Automated exposure control for dose reduction was used. CONTRAST: Performed with IV Contrast, patient injected with 80 mL of Isovue 300. There is some patchy airspace infiltrate and nodularity in the right lower lobe posteriorly. Heart si ze is normal. There is no pericardial effusion. There is no pleural effusion. There is 8 mm hypodense focus inferior right lobe of the liver. This could be a cyst. Gallbladder is slightly dilated measures 4.4 cm. There are small densities in the dependent gallbladder related to g allstones. The bile ducts are not dilated. Spleen is intact. There is no evidence of pancreatic mass. There is no adrenal mass. Kidneys show satisfactory contrast opacification. There is no hydronephros is. Ureters are not dilated. Delayed images show normal renal excretion. There is atheromatous change in the abdominal aorta. There is variable plaque in the abdominal aorta. There is no aneurysm. There is no retroperitoneal adenopathy. There is retained fecal material throughout the large bowel with r ectal fecal impaction. Rectum measures 9 cm. There is mild prostate calcification. Bladder distends s moothly. There is some distended fluid-filled loops of small bowel in the mid abdomen. Small bowel measures up to 2.5 cm. There is no evidence of free air. There is no ascites. Appendix is not seen. There is no sign of thickened appendix. Lumbar vertebra have normal alignment. There is mild narrowing at L4-5 and L5-S1 disc spaces. The bon y pelvis is intact. IMPRESSION: Rectal fecal impaction. Constipation with retained fecal material throughout the large bowel. Distend ed small bowel probably secondary to constipation. Patchy nodular right lower lobe pneumonia. Large gallbladder suggestive of gallbladder dysfunction. S mall gallstones.
[2020-01-11] MEDS ORDERED: LACTULOSE 20 GM/30 ML CUP PO STA (21:06)
[2020-01-11] MEDS ORDERED: NALOXONE 0.4 MG/ML 1 ML VIAL IV PRN (21:09)
[2020-01-11] MEDS ORDERED: NA PHOS,M-B/NA PHOS,DI-BA 133 ML ENEMA RECTAL ONE (21:34)
[2020-01-11] MEDS: SODIUM CHLORIDE 0.9% 1,000 ML IV SCH (21:47)
[2020-01-11] MEDS ORDERED: LORazepam 2 MG/ML INJ IV STA (23:02)
[2020-01-12] MEDS ORDERED: ACETAMINOPHEN TAB 325 MG TAB PO PRN (02:10)
[2020-01-12 06:26] LABS: Glucose,Whole Blood 158 mg/dL (75-99)
[2020-01-12] MEDS: INSULIN ASPART (NovoLOG) 100 UNIT/ML VIAL SQ SCH ×4 (08:14→21:26)
[2020-01-12 08:16] LABS: Glucose,Whole Blood 124 mg/dL (75-99)
[2020-01-12] MEDS ORDERED: NON FORMULARY DRUG (Ensure Clear 1 CAN) PO SCH (09:00)
[2020-01-12] MEDS: NICOTINE 14MG/24HR PATCH TRANSDERM SCH (09:10)
[2020-01-12] MEDS: VERAPAMIL 40 MG TAB PO SCH (09:10)
[2020-01-12] MEDS: DULoxetine HCL 30 MG CAPSULE.DR PO SCH (09:11)
[2020-01-12] MEDS: ALPRAZolam 0.25 MG TAB PO PRN ×2 (11:03→20:17)
[2020-01-12] MEDS: SODIUM CHLORIDE 0.9% 1,000 ML IV SCH (11:04)
[2020-01-12 12:47] LABS: Glucose,Whole Blood 152 mg/dL (75-99)
[2020-01-12 17:34] LABS: Glucose,Whole Blood 224 mg/dL (75-99)
[2020-01-12] MEDS: KETOROLAC 30 MG/ML 1 ML VIAL IVP PRN (20:17)
[2020-01-12] MEDS: TAMSULOSIN 0.4 MG CAP.ER.24H PO SCH (20:17)
[2020-01-12 21:11] LABS: Glucose,Whole Blood 123 mg/dL (75-99)
[2020-01-12] MEDS ORDERED: HYDROcodone/APAP 5-325MG 1 EACH TAB PO PRN (21:15)
[2020-01-12] MEDS ORDERED: HYDROmorphone 0.5 MG/0.5 ML SYRINGE IVP PRN (21:16)
[2020-01-12] MEDS: VERAPAMIL SR 120 MG TABLET.ER PO SCH (21:26)
[2020-01-12] MEDS: QUEtiapine 25 MG TAB PO SCH (21:26)
[2020-01-12] MEDS: MELATONIN 5 MG TABLET PO PRN (21:29)
[2020-01-13] MEDS: PIPERACILLIN-TAZOBACTAM 3.375 GM in SODIUM CHLORIDE 0.9% 100 ML IVPB SCH ×3 (00:03→15:55)
--- NOTE | 2020-01-13 01:52 | HP ---
HISTORY AND PHYSICAL DATE OF SERVICE: 01/12/2020 CHIEF COMPLAINTS: Rectal pain and apparent constipation. HISTORY OF PRESENT ILLNESS: This 74-year-old gentleman with a past medical history of multiple medical issues such as diabetes mellitus, history of EtOH, history of depression, history of bipolar disorder, history of nicotine dependence, being followed by Dr. Soto in the outpatient setting is apparently living in the [facility] on the [place]. The patient was recently admitted to [facility] with change in mental status, fever, sepsis, and multiple other medical issues. In the [facility], apparently the patient is having problems with abdominal pain, rectal pain and as well as some constipation. The patient is very poor historian and the symptoms are uncontrolled. Dr. Soto recommended GI evaluation for possible endoscopies or proctoscopy and the patient was admitted for further evaluation and treatment. The initial white count is 5.4, hemoglobin 11.9. Otherwise, there is no history of fever, rigors. No history of headache, loss of consciousness, seizures at this time. The patient also had abdomen pelvis CAT scan at the time of admission which showed rectal fecal impaction, constipation, and patchy nodular right lower lobe pneumonia also. There is no history of fever, rigors. No history of headache, loss of consciousness, seizures at this time. PAST MEDICAL HISTORY: History of diabetes, insomnia, bipolar, history EtOH, depression. MEDICATIONS: Medications prior to admission, home medications are: 1. Cymbalta 30 mg p.o. daily. 2. Flomax 0.8 daily. 3. Seroquel 25 mg. 4. Habitrol 14 daily. 5. [place] carbonate 300 mg at bedtime. 6. Isoptin 120 mg at bedtime. 7. Calan 120 mg daily. 8. Ensure. 9. Proctocort cream. 10.NovoLog scale. 11.Melatonin. 12.Biotene. 13.Bethany 5 mg. 14.Tylenol. 15.Santyl. 16.Xanax. ALLERGIES: None. FAMILY HISTORY: Unable to obtain. SOCIAL HISTORY: History of smoking. History of occasional alcohol intake. REVIEW OF SYSTEMS: CARDIOVASCULAR SYSTEM: No angina. RESPIRATORY SYSTEM: No cough. GI: As mentioned earlier. : No dysuria. NERVOUS SYSTEM: No numbness or weakness. ALLERGY/IMMUNOLOGY: No asthma or hayfever. MUSCULOSKELETAL: As mentioned earlier. HEMATOLOGY: No history of anemia. ENDOCRINE: As mentioned earlier. CONSTITUTIONAL: As mentioned earlier. DERMATOLOGY: Negative. RHEUMATOLOGY: Negative. PSYCHIATRY: As mentioned earlier. PHYSICAL EXAMINATION: The patient is alert and oriented x2. Pulse is 65, blood pressure 161/76, respiration 18, temperature 98.7, pulse ox 95% on room air. HEENT: Conjunctivae normal. Oral mucosa moist. NECK: No jugular venous distention. No carotid bruit. No lymph node enlargement. CARDIOVASCULAR: S1, S2 muffled. No S3, no S4. RESPIRATORY: Breath sounds diminished at the bases. A few scattered rhonchi, no crackles. ABDOMEN: Soft, mild diffuse discomfort. No guarding. No rigidity. No mass palpable. LEGS: No edema, no swelling. NERVOUS SYSTEM: Higher function as mentioned. Moves all 4 limbs. No focal motor or sensory deficits. LYMPHATICS: No lymphadenopathy of the neck, axillae or groin. SKIN: No ulcer, rash or bleeding. JOINTS: No active deforming arthropathy. LABS: Labs at this time show: WBC 5.4, hemoglobin 11.9, sodium 135, glucose 224. ASSESSMENT: 1. Abdominal pain, rectal pain for evaluation possible obstipation, rule out colonic malignancy. 2. Hyponatremia. 3. Diabetes mellitus type 2. 4. Anemia, normocytic anemia. 5. Possible right lower lobe pneumonia possibly gram-negative aspiration. 6. Insomnia. 7. Bipolar. 8. Remote history of EtOH. 9. History of nicotine dependence. 10.History of depression. 11.History of heavy alcohol abuse. 12.Severe protein-calorie malnutrition with body mass index of 18.7. 13.FULL CODE. RECOMMENDATIONS AND DISCUSSION: This 74-year-old gentleman who presented with multiple complex medical issues, I would recommend to continue the current medications, continues symptomatic treatment. Will initiate broad-spectrum IV antibiotic, resume the home medications. Consult Dr. Vieira for possible endoscopic workup to rule out the possibility of any malignancy. Otherwise, symptomatic treatment provided. Overall prognosis extremely guarded because of multiple complex medical issues. Discussed with staff. A copy of dictation forwarded to Dr. Soto who is the primary physician. MMODL / IJN: [id number] /
[2020-01-13] MEDS: SODIUM CHLORIDE 0.9% 1,000 ML IV SCH ×2 (05:04→13:44)
[2020-01-13 06:47] LABS: Glucose,Whole Blood 128 mg/dL (75-99)
[2020-01-13] MEDS: INSULIN ASPART (NovoLOG) 100 UNIT/ML VIAL SQ SCH ×4 (07:11→21:34)
[2020-01-13] MEDS: PANTOPRAZOLE 40 MG TABLET PO SCH (07:53)
[2020-01-13] MEDS: NICOTINE 14MG/24HR PATCH TRANSDERM SCH (07:54)
[2020-01-13] MEDS: VERAPAMIL 40 MG TAB PO SCH (07:54)
[2020-01-13] MEDS: DULoxetine HCL 30 MG CAPSULE.DR PO SCH (07:54)
[2020-01-13] MEDS ORDERED: COLLAGENASE 250 UNIT/GM OINTMENT 30 GM TUBE TOPICAL SCH (09:00)
[2020-01-13 09:15] LABS: Basophils % (A) 0 %; Eosinophils # (A) 0.2 k/uL (0-0.7); Eosinophils % (A) 4 %; HCT 35.3 % (39.0-53.0); HGB 11.5 gm/dL (13.0-17.5); Lymphocytes # (A) 1.3 k/uL (1.0-4.8); Lymphocytes % (A) 29 %; MCH 32.7 pg (25.0-35.0); MCHC 32.7 g/dL (31.0-37.0); Mean Platelet Volume 8.3; Monocytes # (A) 0.3 k/uL (0-1.0); Monocytes % (A) 7 %; Neutrophils # (A) 2.6 k/uL (1.3-7.7); Neutrophils % (A) 57 %; Platelet Count 188 k/uL (150-450); RBC 3.53 m/uL (4.30-5.90); RDW 12.9 % (11.5-15.5); WBC 4.5 k/uL (3.8-10.6)
[2020-01-13 09:27] LABS: African American GFR (CKD) >90 (>60 ml/min/1.73 sqM); Anion Gap 5 mmol/L; Blood Urea Nitrogen 24 mg/dL (9-20); Calcium 8.7 mg/dL (8.4-10.2); Carbon Dioxide 23 mmol/L (22-30); Chloride 107 mmol/L (98-107); Glucose 301 mg/dL (74-99); Non-African American GFR(CKD) 83 (>60 ml/min/1.73 sqM); Potassium 4.7 mmol/L (3.5-5.1); Sodium 135 mmol/L (137-145)
[2020-01-13 10:59] VITALS: BMI 18.6
[2020-01-13 11:34] LABS: Glucose,Whole Blood 286 mg/dL (75-99)
[2020-01-13] MEDS ORDERED: PEG 3350-NA SULF,BICARB,CL/KCL 4,000 ML BOTTLE PO ONE (16:00)
[2020-01-13 17:14] LABS: Glucose,Whole Blood 172 mg/dL (75-99)
[2020-01-13] MEDS ORDERED: INSULIN ASPART (NovoLOG) 100 UNIT/ML VIAL SQ ONE (17:30)
[2020-01-13] MEDS: QUEtiapine 25 MG TAB PO SCH (21:33)
[2020-01-13] MEDS: VERAPAMIL SR 120 MG TABLET.ER PO SCH (21:34)
[2020-01-13] MEDS: LITHIUM CARBONATE 300 MG CAP PO SCH (21:34)
[2020-01-13] MEDS: TAMSULOSIN 0.4 MG CAP.ER.24H PO SCH (21:34)
--- NOTE | 2020-01-13 22:45 | PN ---
PROGRESS NOTE DATE OF SERVICE: 01/13/2020 This 74-year-old gentleman admitted with rectal pain as well as constipation is being closely monitored. Gastroenterology evaluation is in progress at this time. A CT scan of the abdomen and pelvis is noted. No chest pain. No palpitations. No fever. PHYSICAL EXAMINATION: Alert and oriented x2. Pulse 47, blood pressure 130/61, respirations 16, temperature 97.6, pulse ox 97% on room air. HEENT: Conjunctivae normal. NECK: No jugular venous distention. CARDIOVASCULAR SYSTEM: S1, S2 muffled. RESPIRATORY SYSTEM: Breath sounds diminished at the bases. No rhonchi. No crackles. ABDOMEN: Soft, non-tender. No mass palpable. LEGS: No edema. No swelling. NERVOUS SYSTEM: No focal deficit. LABS: WBC 4.5, hemoglobin 11.2. Sodium 135. Glucose noted. ASSESSMENT: 1. Abdominal pain, rectal pain, for evaluation; possibly obstipation. Rule out chronic malignancy. 2. Hypertension. 3. Diabetes mellitus, type 2. 4. Anemia, normocytic anemia. 5. Possible right lower lobe pneumonia, possibly Gram-negative or aspiration. 6. Insomnia. 7. Bipolar. 8. Remote history of ETOH. 9. History of nicotine dependence. 10.History of depression. 11.History of heavy alcohol abuse. 12.Severe protein-calorie malnutrition; 18.6. 13.FULL CODE. RECOMMENDATIONS AND DISCUSSION: I recommend to continue current medications, continue with the monitoring, symptomatic treatment. Otherwise at this time, closely follow with Gastroenterology. Possible endoscopies. Otherwise, continue the rest of the medications. Guarded prognosis because of multiple complex medical issues. Further recommendations to follow. MMODL / IJN: [id number] /
[2020-01-14] MEDS: PIPERACILLIN-TAZOBACTAM 3.375 GM in SODIUM CHLORIDE 0.9% 100 ML IVPB SCH ×4 (00:11→23:34)
[2020-01-14] MEDS: SODIUM CHLORIDE 0.9% 1,000 ML IV SCH ×3 (04:46→23:32)
--- NOTE | 2020-01-14 04:54 | CONS ---
CONSULTATION DATE OF DICTATION: 01/13/2020 REASON FOR CONSULTATION: Rectal pain and constipation. HISTORY OF PRESENT ILLNESS: The patient is a 74-year-old white male with history of diabetes mellitus, anxiety, depression, and bipolar disorder was admitted to hospital for evaluation of constipation for the last 2 to 3 weeks duration associated with severe rectal pain and rectal discomfort. The patient is an extremely poor historian and very difficult to interview. He states that he has been having irregular bowel movements. The last one was about 2 or 3 days ago. He tried to take some laxatives with no help. He complains of rectal pain. He denies any rectal bleeding. He reports no fever, chills, or night sweats. Reports no nausea, vomiting. He came into the emergency room. He did have a CT of the abdomen and pelvis done that showed evidence of rectal thickening with possible fecal impaction noted and also there was questionable pneumonia seen. The patient never had a colonoscopy in the past. We are consulted for endoscopy intervention. PAST MEDICAL HISTORY: Diabetes mellitus, hypertension, history of alcohol use, bipolar disorder, anxiety, depression. MEDICATIONS: Medications at home include Cymbalta, Flomax, Seroquel, Habitrol, lithium, Isoptin, Calan, , NovoLog, melatonin, Tamms, Tylenol, and Xanax. ALLERGIES: None. SOCIAL HISTORY: Alcohol use, chronic smoker. FAMILY HISTORY: Unremarkable. REVIEW OF SYSTEMS: CARDIOPULMONARY: He denies any chest pain or shortness of breath. GENITOURINARY: Denies any dysuria or hematuria. MUSCULOSKELETAL: Unremarkable. SKIN: Unremarkable. ENDOCRINE: Unremarkable. PSYCHIATRY: History of bipolar disorder. ENT/VISION: Unremarkable. CONSTITUTIONAL: He thinks he lost about 10 pounds, but no fever, chills or night sweats. PHYSICAL EXAMINATION: On physical examination, he appears comfortable, no apparent distress. Vital signs are stable. Blood pressure 161/88, pulse rate 82 and afebrile. HEENT EXAMINATION: Unremarkable. Conjunctivae pink. Sclerae anicteric. Oral cavity, no lesions. NECK: No JVD or lymph node enlargement. CHEST: Clear to auscultation. HEART: Regular rate and rhythm. ABDOMEN: Soft. There was mild tenderness in the left lower quadrant area and suprapubic area. The rest of the abdomen was benign. Bowel sounds are positive. EXTREMITIES: No pedal edema. NEURO: Alert and oriented x3. No focal deficits. LABS: Labs done at the time of admission to the hospital: WBC 5.4, hemoglobin 11.5, platelets 235. Sodium 135, potassium 4.2, chloride normal. BUN and creatinine are within normal limits. Blood sugar is 301. Coronavirus PCR negative. Stool occult blood was negative. Urinalysis was unremarkable. IMPRESSION: 1. This is a patient who is admitted to the hospital with rectal pain, rectal discomfort for the last 2 weeks duration. He has been having chronic constipation for the last 3 months, but very poor historian. Never had a colonoscopy in the past. He did have a CT of the abdomen and pelvis in the ER that shows some the rectum thickening and fecal impaction. Last bowel movement was about 3 days ago. 2. History of bipolar disorder. 3. History of hypertension. RECOMMENDATIONS: I had a lengthy discussion with the patient regarding further workup and recommended a colonoscopy at this time. He is not sure whether he wants to proceed with this investigation; hence, we discussed with his brother who recommended to proceed with the colonoscopy. The plan was discussed with him and finally after discussing for 30 minutes, he was agreeable to have the procedure done. He will be prepped today and scheduled for colonoscopy tomorrow. Understands risks, benefits, and complications. We will follow with you closely. Thank you for this consultation. MMKENDRA / ANGELINE: [id number] /
[2020-01-14] MEDS: KETOROLAC 30 MG/ML 1 ML VIAL IVP PRN (05:02)
[2020-01-14] MEDS: INSULIN ASPART (NovoLOG) 100 UNIT/ML VIAL SQ SCH ×4 (08:30→21:02)
[2020-01-14 08:33] LABS: Basophils % (A) 0 %; Eosinophils # (A) 0.2 k/uL (0-0.7); Eosinophils % (A) 3 %; HCT 33.8 % (39.0-53.0); HGB 11.6 gm/dL (13.0-17.5); Lymphocytes # (A) 1.3 k/uL (1.0-4.8); Lymphocytes % (A) 25 %; MCH 33.2 pg (25.0-35.0); MCHC 34.3 g/dL (31.0-37.0); MCV 96.7 fL (80.0-100.0); Mean Platelet Volume 8.8; Monocytes # (A) 0.4 k/uL (0-1.0); Monocytes % (A) 7 %; Neutrophils # (A) 3.1 k/uL (1.3-7.7); Neutrophils % (A) 62 %; Platelet Count 207 k/uL (150-450); RDW 12.9 % (11.5-15.5)
[2020-01-14 08:40] LABS: African American GFR (CKD) >90 (>60 ml/min/1.73 sqM); Anion Gap 3 mmol/L; Blood Urea Nitrogen 16 mg/dL (9-20); Calcium 9.1 mg/dL (8.4-10.2); Carbon Dioxide 29 mmol/L (22-30); Chloride 108 mmol/L (98-107); Glucose 119 mg/dL (74-99); Non-African American GFR(CKD) 88 (>60 ml/min/1.73 sqM); Potassium 4.1 mmol/L (3.5-5.1); Sodium 140 mmol/L (137-145)
[2020-01-14 10:11] LABS: Glucose,Whole Blood 125 mg/dL (75-99)
[2020-01-14] MEDS: NICOTINE 14MG/24HR PATCH TRANSDERM SCH (10:31)
[2020-01-14 11:43] LABS: Glucose,Whole Blood 121 mg/dL (75-99)
[2020-01-14] MEDS ORDERED: PROPOFOL 10 MG/ML 20 ML VIAL IV ONE (14:18)
[2020-01-14] MEDS ORDERED: IV FLUID CONTINUATION 1,000 ML IV ONE ×2 (14:20)
--- NOTE | 2020-01-14 14:52 | P.PCN ---
Date of Procedure: 01/14/20 Procedure(s) Performed: Brief history: Patient is a pleasant 74-year-old male admitted hospital with abdominal pain and progressive weight loss and rectal pain and constipation for the last few days duration. CAT scan showed thickening of the rectum and fecal impaction. He is hence scheduled scheduled for an elective upper endoscopy as well as colonoscopy. Procedure performed: Esophagogastroduodenoscopy with biopsy Colonoscopy Preoperative diagnosis: Abdominal pain, weight loss Severe constipation and rectal inflammation on recent Anesthesia: MAC Procedure: After informed consent was obtained from the patient was brought into the endoscopy unit and IV sedation was administered by anesthesia under continuous monitoring. Initially upper endoscopy was done. The Olympus GF 160 video endoscope was inserted inserted into the mouth and esophagus intubated without any difficulty and was gradually advanced into the stomach and duodenum and carefully examined. The bulb and second part of the duodenum had duodenitis and duodenal erosions and biopsies were done from this area. The scope was then withdrawn into the stomach adequately insufflated with air and upon careful examination the antrum and body, cardia and fundus had diffuse gastritis and multiple biopsies were done from this area. The scope was then withdrawn into the esophagus. The GE junction was located at 40 cm to the incisors. Small hiatal hernia noted. It appeared regular with no erythema erosions or ulcerati ons. Rest of the esophagus appeared normal. Patient tolerated the procedure well. At this time the patient continued to remain sedation. Initial digital rectal examination was normal. Olympus CF 160 video colonoscope was then inserted into the rectum and gradually advanced to the cecum without any difficulty. Careful examination was performed as the scope was gradually being withdrawn. The prep was excellent. The cecum, ascending colon, transverse colon, descending colon, sigmoid colon and rectum appeared normal. Scattered sigmoid diverticulosis seen. Retroflexion was performed in the rectum and no lesions were noted. Patient tolerated the procedure well. Impression: 1. Upper endoscopy revealed diffuse gastritis involving the entire stomach with some duodenitis and LA grade B reflux esophagitis. Small hiatal hernia seen. 2. Colonoscopy revealed scattered sigmoid diverticulosis but no evidence of colitis or colorectal neoplasia Recommendations: Findings of this examination were discussed with the patient . He was advised to follow with the biopsy results. Diet will be advanced as tolerated. He will be started on MiraLAX 1 scoop twice daily.
[2020-01-14] MEDS: ALPRAZolam 0.25 MG TAB PO PRN (16:39)
[2020-01-14] MEDS: PANTOPRAZOLE 40 MG TABLET PO SCH (16:39)
[2020-01-14] MEDS: DULoxetine HCL 30 MG CAPSULE.DR PO SCH (16:39)
[2020-01-14] MEDS: VERAPAMIL 40 MG TAB PO SCH (16:40)
[2020-01-14 17:52] LABS: Glucose,Whole Blood 243 mg/dL (75-99)
[2020-01-14 20:05] LABS: Glucose,Whole Blood 269 mg/dL (75-99)
[2020-01-14 20:45] VITALS: PULSE 50
[2020-01-14] MEDS: VERAPAMIL SR 120 MG TABLET.ER PO SCH (21:00)
[2020-01-14] MEDS: LITHIUM CARBONATE 300 MG CAP PO SCH (21:00)
[2020-01-14] MEDS: TAMSULOSIN 0.4 MG CAP.ER.24H PO SCH (21:01)
[2020-01-14] MEDS: MELATONIN 5 MG TABLET PO PRN (21:04)
[2020-01-14] MEDS: QUEtiapine 25 MG TAB PO SCH (21:09)
--- NOTE | 2020-01-14 23:19 | P.PN ---
Progress Note - Text Progress Note Date: 01/14/20 Presenting complaint: Rectum pain History of presenting complaint: This is a 74-year-old patient who presented with rectum pain and constipation. Today-saw the patient this morning. Was awaiting to go down for endoscopy. Some rectal pain is present. No nausea vomiting. Patient wants to eat food.. Review of systems: Was done for constitutional, cardiovascular, GI, pulmonary. relevant finding as above Active Medications Acetaminophen (Tylenol Tab) 650 mg PO Q6HR PRN PRN Reason: Mild Pain or Fever > 100.5 Hydrocodone Bitart/Acetaminophen ([place] 5-325) 1 each PO Q8H PRN PRN Reason: Breakthrough Pain Alprazolam (Xanax) 0.25 mg PO TID PRN PRN Reason: Anxiety Last Admin: 01/14/20 16:39 Dose: 0.25 mg Documented by: Duloxetine HCl (Cymbalta) 30 mg PO DAILY@0900 [facility] Last Admin: 01/14/20 16:39 Dose: 30 mg Documented by: Hydromorphone HCl (Dilaudid) 0.5 mg IVP Q6HR PRN PRN Reason: Severe Pain Sodium Chloride (Saline 0.9%) 1,000 mls @ 75 mls/hr IV .[id number] [facility] Last Admin: 01/14/20 16:39 Dose: 75 mls/hr Documented by: Piperacillin Sod/Tazobactam (Sod 3.375 gm/ Sodium Chloride) 100 mls @ 25 mls/hr IVPB Q8HR [facility] Last Admin: 01/14/20 16:40 Dose: 25 mls/hr Documented by: Insulin Aspart (Novolog) 0 unit SQ ACHS [facility]; Protocol Last Admin: 01/14/20 21:02 Dose: 4 unit Documented by: Ketorolac Tromethamine (Toradol) 15 mg IVP Q6H PRN PRN Reason: Moderate Pain Stop: 01/16/20 21:16 Last Admin: 01/14/20 05:02 Dose: 15 mg Documented by: [place] Carbonate ([place] Carbonate) 300 mg PO HS@2100 [facility] Last Admin: 01/14/20 21:00 Dose: 300 mg Documented by: Melatonin (Melatonin) 5 mg PO HS PRN PRN Reason: Insomnia Last Admin: 01/14/20 21:04 Dose: 5 mg Documented by: Naloxone HCl (Narcan) 0.2 mg IV Q2M PRN PRN Reason: Opioid Reversal Nicotine (Habitrol 14mg/24hr Patch) 1 patch TRANSDERM DAILY [facility] Last Admin: 01/14/20 10:31 Dose: 1 patch Documented by: Pantoprazole Sodium (Protonix) 40 mg PO AC-BRKFST [facility] Last Admin: 01/14/20 16:39 Dose: 40 mg Documented by: Polyethylene Glycol (Miralax) 17 gm PO DAILY [facility] Quetiapine Fumarate (Seroquel) 25 mg PO HS@2100 [facility] Last Admin: 01/14/20 21:09 Dose: 25 mg Documented by: Tamsulosin HCl (Flomax) 0.8 mg PO HS@2100 [facility] Last Admin: 01/14/20 21:01 Dose: 0.8 mg Documented by: Verapamil HCl (Isoptin) 120 mg PO DAILY@0900 [facility] Last Admin: 01/14/20 16:40 Dose: Not Given Documented by: Verapamil HCl (Isoptin Sr) 120 mg PO HS@2100 [facility] Last Admin: 01/14/20 21:00 Dose: 120 mg Documented by: On examination: VITAL SIGNS: 98.5, 58, 18, 156/76 GENERAL APPEARANCE: Loss of subcutaneous fat. Lying in bed, slightly uncomfortable. HEENT: Normal external appearance of nose and ear. Oral cavity normal EYES: Pupils equal. Conjunctiva normal. NECK: JVD not raised. Mass not palpable. RESPIRATORY: Respiratory effort normal. Lungs clear to auscultation. CARDIOVASCULAR: First and second sounds normal. No edema. ABDOMEN: Soft. Liver and spleen not palpable. No tenderness. No mass palpable. PSYCHIATRY: Alert and oriented x3. Mood and affect slightly anxious INVESTIGATIONS, reviewed in the clinical context: White count 5, hemoglobin 11.6 creatinine 0.78. Computed tomography scan of abdomen and pelvis-showing dilated rectum and stool throughout the colon into the small bowel Assessment: -Rectal pain associated with severe constipation -Severe stool retention up to the small bowel.-Diabetes mellitus type 2 -Bipolar disorder -Chronic nicotine dependence patient cigarette smoker Plan: Patient is due to go down for colonoscopy later this afternoon. Care was discussed with the patient. Patient is nothing by mouth.
[2020-01-15 04:43] VITALS: BP 148/53; RESP 18; TEMP 98
[2020-01-15 07:03] LABS: Glucose,Whole Blood 115 mg/dL (75-99)
[2020-01-15 08:10] LABS: Basophils % (A) 1 %; Eosinophils # (A) 0.2 k/uL (0-0.7); Eosinophils % (A) 4 %; HCT 33.9 % (39.0-53.0); HGB 11.4 gm/dL (13.0-17.5); Lymphocytes # (A) 1.4 k/uL (1.0-4.8); Lymphocytes % (A) 29 %; MCH 32.5 pg (25.0-35.0); MCHC 33.5 g/dL (31.0-37.0); MCV 97.1 fL (80.0-100.0); Mean Platelet Volume 8.9; Monocytes # (A) 0.4 k/uL (0-1.0); Monocytes % (A) 7 %; Neutrophils # (A) 2.8 k/uL (1.3-7.7); Neutrophils % (A) 57 %; Platelet Count 190 k/uL (150-450); RDW 12.9 % (11.5-15.5); WBC 4.9 k/uL (3.8-10.6)
[2020-01-15 08:32] LABS: African American GFR (CKD) >90 (>60 ml/min/1.73 sqM); Anion Gap 6 mmol/L; Blood Urea Nitrogen 17 mg/dL (9-20); Calcium 9.1 mg/dL (8.4-10.2); Carbon Dioxide 23 mmol/L (22-30); Chloride 107 mmol/L (98-107); Glucose 116 mg/dL (74-99); Non-African American GFR(CKD) 85 (>60 ml/min/1.73 sqM); Potassium 4.4 mmol/L (3.5-5.1); Sodium 136 mmol/L (137-145)
[2020-01-15] MEDS: DULoxetine HCL 30 MG CAPSULE.DR PO SCH (08:48)
[2020-01-15] MEDS: PANTOPRAZOLE 40 MG TABLET PO SCH (08:48)
[2020-01-15] MEDS: INSULIN ASPART (NovoLOG) 100 UNIT/ML VIAL SQ SCH (08:48)
[2020-01-15] MEDS: PIPERACILLIN-TAZOBACTAM 3.375 GM in SODIUM CHLORIDE 0.9% 100 ML IVPB SCH (08:49)
[2020-01-15] MEDS: NICOTINE 14MG/24HR PATCH TRANSDERM SCH (08:49)
[2020-01-15] MEDS: ALPRAZolam 0.25 MG TAB PO PRN (08:51)
[2020-01-15] MEDS: VERAPAMIL 40 MG TAB PO SCH (08:52)
[2020-01-15] MEDS ORDERED: POLYETHYLENE GLYCOL 3350 17 GM POWD.PACK PO SCH (09:00)
--- NOTE | 2020-01-15 23:23 | P.DS ---
Providers Date of admission: 01/13/20 10:08 Expected date of discharge: 01/15/20 Attending physician: Benjie Pastrana Primary care physician: Hermelindo Soto [facility] Course: Presenting complaint: Rectum pain History of presenting complaint: This is a 74-year-old patient who presented with rectum pain and constipation. EGD showed diffuse gastritis involving the entire stomach and duodenitis and LA grade B reflux esophagitis. Colonoscopy revealed scattered sigmoid diverticulosis. Today-care was discussed with the patient. tool salvage worker consulted to arrange for discharge planning and needs of the patient. Patient to follow-up with GI as an outpatient. Laxatives were added for the chronic constipation. Patient has anxiety. To follow up with his psychiatrist. Discussed with him. Consultation: Dr. Mili Vieira from GI On examination: VITAL SIGNS: 98, 50, 18, 148/53, 98% on room air GENERAL APPEARANCE: Loss of subcutaneous fat. Lying in bed, awake. HEENT: Normal external appearance of nose and ear. Oral cavity normal EYES: Pupils equal. Conjunctiva normal. NECK: JVD not raised. Mass not palpable. RESPIRATORY: Respiratory effort normal. Lungs clear to auscultation. CARDIOVASCULAR: First and second sounds normal. No edema. ABDOMEN: Soft. Liver and spleen not palpable. No tenderness. No mass palpable. PSYCHIATRY: Alert and oriented x3. Mood and affect slightly anxious INVESTIGATIONS, reviewed in the clinical context: White count 4.9 hemoglobin 11.4 platelets 190 potassium 4.4 creatinine 0.85 Previous testing White count 5, hemoglobin 11.6 creatinine 0.78. Computed tomography scan of abdomen and pelvis-showing dilated rectum and stool throughout the colon into the small bowel Assessment: -Acute gastritis and duodenitis and esophagitis -Rectal pain associated with severe constipation -Severe stool retention up to the small bowel.-Diabetes mellitus type 2 -Bipolar disorder -Chronic nicotine dependence patient cigarette smoker -Sigmoid diverticulosis Disposition: Home Patient Condition at Discharge: Stable Plan - Discharge Summary Discharge Rx Participant: No New Discharge Prescriptions: New Psyllium Husk 100% [Metamucil Packet] 6 gm PO BID #60 packet Omeprazole [PriLOSEC] 20 mg PO AC-BID #60 cap Continue DULoxetine HCL [Cymbalta] 30 mg PO DAILY@0900 Tamsulosin HCl [Flomax] 0.8 mg PO HS@2100 Acetaminophen Tab [Tylenol] 650 mg PO Q6HR PRN #30 tab PRN Reason: Mild Pain Or Fever > 100.5 Nicotine 14Mg/24Hr Patch [Habitrol] 1 patch TRANSDERM DAILY patch QUEtiapine [SEROquel] 25 mg PO HS@2100 [place] Carbonate 300 mg PO HS@2100 Verapamil Sr [Isoptin Sr] 120 mg PO HS@2100 Verapamil HCl [Calan] 120 mg PO DAILY@0900 Ensure Clear 1 can PO BID@0900,2100 Proctocort Cream 1% 1 applic TOPICAL BID INSULIN ASPART (NovoLOG) [NovoLOG (formulary)] See Protocol SQ QID Melatonin 5 mg PO HS PRN PRN Reason: Insomnia Biotene Pbf Dry Mouth Liquid 15 ml PO Q4H PRN PRN Reason: Dry Mouth HYDROcodone/APAP 5-325MG [[place] 5-325] 1 tab PO Q8H PRN PRN Reason: Breakthrough Pain ALPRAZolam [Xanax] 0.25 mg PO TID PRN PRN Reason: Anxiety Collagenase [Santyl] 1 applic TOPICAL DAILY PRN PRN Reason: WOUND CARE Discontinued Collagenase [Santyl] 1 applic TOPICAL DAILY Discharge Medication List DULoxetine HCL [Cymbalta] 30 mg PO DAILY@0900 04/11/17 [History] Tamsulosin HCl [Flomax] 0.8 mg PO HS@209912/15/19 [History] Acetaminophen Tab [Tylenol] 650 mg PO Q6HR PRN #30 tab 12/23/19 [Rx] Nicotine 14Mg/24Hr Patch [Habitrol] 1 patch TRANSDERM DAILY patch 12/25/19 [Rx] ALPRAZolam [Xanax] 0.25 mg PO TID PRN 01/11/20 [History] Biotene Pbf Dry Mouth Liquid 15 ml PO Q4H PRN 01/11/20 [History] Collagenase [Santyl] 1 applic TOPICAL DAILY PRN 01/11/20 [History] Ensure Clear 1 can PO BID@0900,209901/11/20 [History] HYDROcodone/APAP 5-325MG [[place] 5-325] 1 tab PO Q8H PRN 01/11/20 [History] INSULIN ASPART (NovoLOG) [NovoLOG (formulary)] See Protocol SQ QID 01/11/20 [History] [place] Carbonate 300 mg PO HS@209901/11/20 [History] Melatonin 5 mg PO HS PRN 01/11/20 [History] Proctocort Cream 1% 1 applic TOPICAL BID 01/11/20 [History] QUEtiapine [SEROquel] 25 mg PO HS@2100 01/11/20 [History] Verapamil HCl [Calan] 120 mg PO DAILY@0900 01/11/20 [History] Verapamil Sr [Isoptin Sr] 120 mg PO HS@2100 01/11/20 [History] Omeprazole [PriLOSEC] 20 mg PO AC-BID #60 cap 01/15/20 [Rx] Psyllium Husk 100% [Metamucil Packet] 6 gm PO BID #60 packet 01/15/20 [Rx] Follow up Appointment(s)/Referral(s): psychiatristdr [Other] - 1 Week Alex Hardin MD [STAFF PHYSICIAN] - 01/21/20 2:00 pm Kimberly Vieira MD [STAFF PHYSICIAN] - 02/05/20 10:15 am [facility], [NON-STAFF] - Patient Instructions/Handouts: Laxative, Bulk-forming (By mouth), Omeprazole (By mouth), Constipation (DC), Abdominal Pain (ED) Discharge Disposition: HOME WITH HOME HEALTH SERVICES
== END 2020-01-15 12:10 | disposition home health service (06) | DRG 388 ==
LOC: EC 17:04 → 5NMEDONC 21:11 → OBSVTOIN 01-13 10:08
PROVIDERS: ADMIT Hospitalist; ATTEND Hospitalist
PROC: 0DB68ZX Excision of Stomach, Via Natural or Artificial Opening Endoscopic, Diagnostic (ICD-10-PCS; principal; 2020-01-14 13:25)
PROC: 0DB98ZX Excision of Duodenum, Via Natural or Artificial Opening Endoscopic, Diagnostic (ICD-10-PCS; principal; 2020-01-14 13:25)
PROC: 0DJD8ZZ Inspection of Lower Intestinal Tract, Via Natural or Artificial Opening Endoscopic (ICD-10-PCS; principal; 2020-01-14 13:25)
DX: K56.41 Fecal impaction (principal); E43 Unspecified severe protein-calorie malnutrition; E87.1 Hypo-osmolality and hyponatremia; Z68.1 Body mass index [BMI] 19.9 or less, adult; F41.9 Anxiety disorder, unspecified; F17.210 Nicotine dependence, cigarettes, uncomplicated; I10 Essential (primary) hypertension; K21.0 Gastro-esophageal reflux disease with esophagitis; E11.9 Type 2 diabetes mellitus without complications; F31.9 Bipolar disorder, unspecified; D64.9 Anemia, unspecified; K57.30 Diverticulosis of large intestine without perforation or abscess without bleeding; Z11.59 Encounter for screening for other viral diseases; G47.00 Insomnia, unspecified; K29.80 Duodenitis without bleeding; K29.00 Acute gastritis without bleeding; K44.9 Diaphragmatic hernia without obstruction or gangrene; Z79.4 Long term (current) use of insulin; Z79.899 Other long term (current) drug therapy
CPT/HCPCS: 36415; 43239; 45378; 71045; 74177; 80048; 80053; 81003; 82150; 82272; 83690; 85025; 87635; 88305; 93005; 96361; 96374; 96375; 99285

== ENCOUNTER 2020-02-07 13:57 | Emergency (ER) | payer MEDICARE ==
[2020-02-07 14:04] VITALS: TEMP 97.5
[2020-02-07] MEDS ORDERED: SODIUM CHLORIDE 0.9% 500 ML 500 ML IV ONE (14:08)
[2020-02-07] MEDS ORDERED: SODIUM CHLORIDE 0.9% 1,000 ML IV STA (14:08)
--- NOTE | 2020-02-07 14:12 | ED ---
General Adult HPI - General Chief complaint: Altered Mental Status Stated complaint: Altered Mental Status Time Seen by Provider: 02/07/20 13:59 Source: patient, EMS, RN notes reviewed Mode of arrival: EMS Limitations: altered mental status - History of Present Illness Initial comments: Patient is a pleasant 74-year-old male presenting to the emergency Department with complaints of reported confusion. Patient is a poor historian and offers limited history. Patient states he doesn't feel well however cannot further explain that. Patient reportedly has had symptoms for a couple of days. Patient reportedly has not been eating or drinking well. Patient denies any pain. - Related Data Home Medications Medication Instructions Recorded Confirmed DULoxetine HCL [Cymbalta] 30 mg PO DAILY@89904/11/17 01/11/20 Tamsulosin HCl [Flomax] 0.8 mg PO HS@209912/15/19 01/11/20 ALPRAZolam [Xanax] 0.25 mg PO TID PRN 01/11/20 01/11/20 Biotene Pbf Dry Mouth Liquid 15 ml PO Q4H PRN 01/11/20 01/11/20 Collagenase [Santyl] 1 applic TOPICAL DAILY PRN 01/11/20 01/11/20 Ensure Clear 1 can PO BID@09,209901/11/20 01/11/20 HYDROcodone/APAP 5-325MG [Julian 1 tab PO Q8H PRN 01/11/20 01/11/20 5-325] INSULIN ASPART (NovoLOG) [NovoLOG See Protocol SQ QID 01/11/20 01/11/20 (formulary)] [place] Carbonate 300 mg PO HS@209901/11/20 01/11/20 Melatonin 5 mg PO HS PRN 01/11/20 01/11/20 Proctocort Cream 1% 1 applic TOPICAL BID 01/11/20 01/11/20 QUEtiapine [SEROquel] 25 mg PO HS@209901/11/20 01/11/20 Verapamil HCl [Calan] 120 mg PO DAILY@0900 01/11/20 01/11/20 Verapamil Sr [Isoptin Sr] 120 mg PO HS@209901/11/20 01/11/20 Previous Rx's Medication Instructions Recorded Acetaminophen Tab [Tylenol] 650 mg PO Q6HR PRN #30 tab 12/23/19 Nicotine 14Mg/24Hr Patch [Habitrol] 1 patch TRANSDERM DAILY patch 12/25/19 Omeprazole [PriLOSEC] 20 mg PO AC-BID #60 cap 01/15/20 Psyllium Husk 100% [Metamucil 6 gm PO BID #60 packet 01/15/20 Packet] Allergies Allergy/AdvReac Type Severity Reaction Status Date / Time No Known Allergies Allergy Verified 01/11/20 22:49 Review of Systems ROS Statement: Those systems with pertinent positive or pertinent negative responses have been documented in the HPI. ROS Other: All systems not noted in ROS Statement are negative. Constitutional: Denies: fever Eyes: Denies: eye pain ENT: Denies: ear pain Respiratory: Denies: cough Cardiovascular: Denies: chest pain Genitourinary: Denies: dysuria Musculoskeletal: Denies: back pain Skin: Denies: rash Neurological: Reports: confusion Past Medical History Past Medical History: Diabetes Mellitus Additional Past Medical History / Comment(s): insomnia, bipolar disorder, remote history of ETOH, smoker,depression History of Any Multi-Drug Resistant Organisms: None Reported Past Surgical History: No Surgical Hx Reported Past Psychological History: Bipolar, Depression Smoking Status: Current every day smoker Past Alcohol Use History: Heavy Past Drug Use History: None Reported - Past Family History Father Family Medical History: Unable to Obtain General Exam Limitations: altered mental status General appearance: alert, in no apparent distress Head exam: Present: atraumatic, normocephalic Eye exam: Present: normal appearance, PERRL, EOMI ENT exam: Present: mucous membranes dry Neck exam: Present: normal inspection. Absent: tenderness, meningismus Respiratory exam: Present: normal lung sounds bilaterally Cardiovascular Exam: Present: regular rate, normal rhythm GI/Abdominal exam: Present: soft. Absent: tenderness Extremities exam: Present: normal inspection, full ROM. Absent: tenderness Neurological exam: Present: alert, altered, CN II-XII intact. Absent: motor sensory deficit Expanded Neurological exam: Present: protecting the airway Cranial nerves: EOM's Intact: Normal Motor strength exam: RUE: 5, LUE: 5, RLE: 5, LLE: 5 Eye Response: (4) open spontaneously Motor Response: (6) obeys commands Verbal Response: incomprehensible sounds Psychiatric exam: Present: flat affect Skin exam: Present: normal color Course Vital Signs 02/07/20 13:58 Temperature 97.5 F L Pulse Rate 62 Respiratory 16 Rate Blood Pressure 173/74 O2 Sat by Pulse 96 Oximetry EKG Findings - EKG Comments: EKG Findings:: Sinus rhythm at 64. LA 198. QRS 84. QT 414. QTC 427. Normal axis. Normal QRS. No acute ST change. Medical Decision Making - Medical Decision Making Patient reevaluated and unchanged. Family updated. Case was discussed with Dr. Chava Sagastume from [facility] who will accept transfer. - Lab Data Result diagrams: 02/07/20 14:10 02/07/20 14:10 Lab Results 02/07/20 02/07/20 02/07/20 Range/Units 14:10 14:10 14:10 WBC 5.6 (3.8-10.6) k/uL RBC 4.26 L (4.30-5.90) m/uL Hgb 13.5 (13.0-17.5) gm/dL Hct 40.2 (39.0-53.0) % MCV 94.2 (80.0-100.0) fL MCH 31.6 (25.0-35.0) pg MCHC 33.5 (31.0-37.0) g/dL RDW 12.5 (11.5-15.5) % Plt Count 186 (150-450) k/uL Neutrophils % 64 % Lymphocytes % 23 % Monocytes % 7 % Eosinophils % 4 % Basophils % 1 % Neutrophils # 3.6 (1.3-7.7) k/uL Lymphocytes # 1.3 (1.0-4.8) k/uL Monocytes # 0.4 (0-1.0) k/uL Eosinophils # 0.2 (0-0.7) k/uL Basophils # 0.0 (0-0.2) k/uL PT (9.0-12.0) sec INR (<1.2) APTT (22.0-30.0) sec Sodium 136 L (137-145) mmol/L Potassium 4.5 (3.5-5.1) mmol/L Chloride 103 (98-107) mmol/L Carbon Dioxide 26 (22-30) mmol/L Anion Gap 7 mmol/L BUN 27 H (9-20) mg/dL Creatinine 0.91 (0.66-1.25) mg/dL Est GFR (CKD-EPI)AfAm >90 (>60 ml/min/1.73 sqM) Est GFR (CKD-EPI)NonAf 82 (>60 ml/min/1.73 sqM) Glucose 147 H (74-99) mg/dL POC Glucose (mg/dL) (75-99) mg/dL POC Glu [employer] ID Calcium 10.6 H (8.4-10.2) mg/dL Total Bilirubin 0.5 (0.2-1.3) mg/dL AST 23 (17-59) U/L ALT 13 (4-49) U/L Alkaline Phosphatase 53 (38-126) U/L Ammonia <9 (<30) umol/L Troponin I (0.000-0.034) ng/mL Total Protein 6.4 (6.3-8.2) g/dL Albumin 3.8 (3.5-5.0) g/dL Urine Color Urine Appearance (Clear) Urine pH (5.0-8.0) Ur Specific [place] (1.001-1.035) Urine Protein (Negative) Urine Glucose (UA) (Negative) Urine Ketones (Negative) Urine Blood (Negative) Urine Nitrite (Negative) Urine Bilirubin (Negative) Urine Urobilinogen (<2.0) mg/dL Ur Leukocyte Esterase (Negative) Serum Alcohol <10 mg/dL 02/07/20 02/07/20 02/07/20 Range/Units 14:10 14:10 14:15 WBC (3.8-10.6) k/uL RBC (4.30-5.90) m/uL Hgb (13.0-17.5) gm/dL Hct (39.0-53.0) % MCV (80.0-100.0) fL MCH (25.0-35.0) pg MCHC (31.0-37.0) g/dL RDW (11.5-15.5) % Plt Count (150-450) k/uL Neutrophils % % Lymphocytes % % Monocytes % % Eosinophils % % Basophils % % Neutrophils # (1.3-7.7) k/uL Lymphocytes # (1.0-4.8) k/uL Monocytes # (0-1.0) k/uL Eosinophils # (0-0.7) k/uL Basophils # (0-0.2) k/uL PT 10.9 (9.0-12.0) sec INR 1.1 (<1.2) APTT 23.5 (22.0-30.0) sec Sodium (137-145) mmol/L Potassium (3.5-5.1) mmol/L Chloride (98-107) mmol/L Carbon Dioxide (22-30) mmol/L Anion Gap mmol/L BUN (9-20) mg/dL Creatinine (0.66-1.25) mg/dL Est GFR (CKD-EPI)AfAm (>60 ml/min/1.73 sqM) Est GFR (CKD-EPI)NonAf (>60 ml/min/1.73 sqM) Glucose (74-99) mg/dL POC Glucose (mg/dL) 181 H (75-99) mg/dL POC Glu [employer] ID Sasha Vargas Calcium (8.4-10.2) mg/dL Total Bilirubin (0.2-1.3) mg/dL AST (17-59) U/L ALT (4-49) U/L Alkaline Phosphatase (38-126) U/L Ammonia (<30) umol/L Troponin I <0.012 (0.000-0.034) ng/mL Total Protein (6.3-8.2) g/dL Albumin (3.5-5.0) g/dL Urine Color Urine Appearance (Clear) Urine pH (5.0-8.0) Ur Specific [place] (1.001-1.035) Urine Protein (Negative) Urine Glucose (UA) (Negative) Urine Ketones (Negative) Urine Blood (Negative) Urine Nitrite (Negative) Urine Bilirubin (Negative) Urine Urobilinogen (<2.0) mg/dL Ur Leukocyte Esterase (Negative) Serum Alcohol mg/dL 02/07/20 Range/Units 14:37 WBC (3.8-10.6) k/uL RBC (4.30-5.90) m/uL Hgb (13.0-17.5) gm/dL Hct (39.0-53.0) % MCV (80.0-100.0) fL MCH (25.0-35.0) pg MCHC (31.0-37.0) g/dL RDW (11.5-15.5) % Plt Count (150-450) k/uL Neutrophils % % Lymphocytes % % Monocytes % % Eosinophils % % Basophils % % Neutrophils # (1.3-7.7) k/uL Lymphocytes # (1.0-4.8) k/uL Monocytes # (0-1.0) k/uL Eosinophils # (0-0.7) k/uL Basophils # (0-0.2) k/uL PT (9.0-12.0) sec INR (<1.2) APTT (22.0-30.0) sec Sodium (137-145) mmol/L Potassium (3.5-5.1) mmol/L Chloride (98-107) mmol/L Carbon Dioxide (22-30) mmol/L Anion Gap mmol/L BUN (9-20) mg/dL Creatinine (0.66-1.25) mg/dL Est GFR (CKD-EPI)AfAm (>60 ml/min/1.73 sqM) Est GFR (CKD-EPI)NonAf (>60 ml/min/1.73 sqM) Glucose (74-99) mg/dL POC Glucose (mg/dL) (75-99) mg/dL POC Glu [employer] ID Calcium (8.4-10.2) mg/dL Total Bilirubin (0.2-1.3) mg/dL AST (17-59) U/L ALT (4-49) U/L Alkaline Phosphatase (38-126) U/L Ammonia (<30) umol/L Troponin I (0.000-0.034) ng/mL Total Protein (6.3-8.2) g/dL Albumin (3.5-5.0) g/dL Urine Color Yellow Urine Appearance Clear (Clear) Urine pH 6.0 (5.0-8.0) Ur Specific [place] 1.015 (1.001-1.035) Urine Protein Negative (Negative) Urine Glucose (UA) Negative (Negative) Urine Ketones 1+ (Negative) Urine Blood Negative (Negative) Urine Nitrite Negative (Negative) Urine Bilirubin Negative (Negative) Urine Urobilinogen <2.0 (<2.0) mg/dL Ur Leukocyte Esterase Negative (Negative) Serum Alcohol mg/dL - Radiology Data Radiology results: image reviewed (Chest x-ray shows chronic changes without acute process. Computed tomography scan of the brain shows progression left- sided subacute or chronic some dural hematoma or high go up. Now midline shift 4 mm to the right.) Disposition Clinical Impression: Subdural hygroma, Altered mental status Disposition: OTHER INSTITUTION NOT DEFINED Is patient prescribed a controlled substance at d/c from ED?: No Referrals: Alex Hardin MD [Primary Care Provider] - 1-2 days Time of Disposition: 15:39 - Out of Hospital Transfer - Req. Specs Out of Hospital Transfer - Requested Specifics: Other Emergency Center
[2020-02-07 14:22] LABS: Basophils % (A) 1 %; Eosinophils # (A) 0.2 k/uL (0-0.7); Eosinophils % (A) 4 %; HCT 40.2 % (39.0-53.0); HGB 13.5 gm/dL (13.0-17.5); Lymphocytes # (A) 1.3 k/uL (1.0-4.8); Lymphocytes % (A) 23 %; MCH 31.6 pg (25.0-35.0); MCHC 33.5 g/dL (31.0-37.0); MCV 94.2 fL (80.0-100.0); Mean Platelet Volume 9.6; Monocytes # (A) 0.4 k/uL (0-1.0); Monocytes % (A) 7 %; Neutrophils # (A) 3.6 k/uL (1.3-7.7); Neutrophils % (A) 64 %; Platelet Count 186 k/uL (150-450); RBC 4.26 m/uL (4.30-5.90); RDW 12.5 % (11.5-15.5); WBC 5.6 k/uL (3.8-10.6)
[2020-02-07 14:31] LABS: ALT 13 U/L (4-49); AST 23 U/L (17-59); African American GFR (CKD) >90 (>60 ml/min/1.73 sqM); Albumin 3.8 g/dL (3.5-5.0); Alcohol <10 mg/dL; Alkaline Phosphatase 53 U/L (38-126); Anion Gap 7 mmol/L; Blood Urea Nitrogen 27 mg/dL (9-20); Calcium 10.6 mg/dL (8.4-10.2); Carbon Dioxide 26 mmol/L (22-30); Chloride 103 mmol/L (98-107); Glucose 147 mg/dL (74-99); Non-African American GFR(CKD) 82 (>60 ml/min/1.73 sqM); Potassium 4.5 mmol/L (3.5-5.1); Sodium 136 mmol/L (137-145); Total Bilirubin 0.5 mg/dL (0.2-1.3); Total Protein 6.4 g/dL (6.3-8.2)
[2020-02-07 14:34] LABS: Glucose,Whole Blood 181 mg/dL (75-99)
[2020-02-07 14:36] LABS: INR 1.1 (<1.2); Prothrombin Time 10.9 sec (9.0-12.0)
[2020-02-07 14:37] LABS: Partial Thromboplastin Time 23.5 sec (22.0-30.0)
[2020-02-07 14:50] LABS: Appearance,Urine Clear (Clear); Color,Urine Yellow; Specific Gravity,Urine 1.015 (1.001-1.035)
[2020-02-07 14:51] LABS: Bilirubin,Urine Negative (Negative); Blood,Urine Negative (Negative); Glucose,Urine (UA) Negative (Negative); Ketones,Urine 1+ (Negative); Protein,Urine Negative (Negative); Urobilinogen,Urine <2.0 mg/dL (<2.0)
[2020-02-07 14:52] LABS: Leukocyte Esterase,Urine Negative (Negative); Nitrite,Urine Negative (Negative)
--- NOTE | 2020-02-07 15:10 | XR ---
EXAMINATION TYPE: XR chest 2V DATE OF EXAM: 02/07/2020 COMPARISON: Prior chest x-ray January 11, 2020. HISTORY: Altered mental status and weakness. TECHNIQUE: Frontal and lateral views of the chest are obtained. FINDINGS: There is chronic parenchymal change bilaterally without suspicious focal air space opacity , pleural effusion, or pneumothorax seen. The cardiac silhouette size remains within normal limits. The osseous structures are intact. IMPRESSION: Chronic changes without acute pulmonary process on current study.
--- NOTE | 2020-02-07 15:15 | CT ---
EXAMINATION TYPE: CT brain wo con DATE OF EXAM: 02/07/2020 HISTORY: ams CT DLP: 1142.4 mGycm. Automated Exposure Control for Dose Reduction was Utilized. TECHNIQUE: CT scan of the head is performed without contrast. COMPARISON: CT brain December 25, 2019. FINDINGS: There is no acute intracranial hemorrhage shift identified. There is diffuse ventricular and sulcal prominence consistent with diffuse age-related cerebral atrophy. CSF prominence over bilat eral frontoparietal regions shows improvement on the right side and some stability or slightly more p rominent from most recent CT on the left. No midline shift 4 mm at level of septum pellucidum axial i mage 29 is noted. There is low-attenuation in the periventricular white matter consistent with chroni c small vessel ischemic change. Patchy opacification of the ethmoid and maxillary sinuses bilaterally with areas of eccentric mucosal thickening remain present. Dependent opacity posterior right sphenoi d sinus again seen. IMPRESSION: No acute intracranial hemorrhage. Persistent mild to moderate diffuse cerebral atrophy a nd chronic small vessel ischemic change. Persistent chronic or subacute on chronic subdural hematomas or hygromas with continued improvement on the right but continued progression in size on the left fr om last several prior CTs now causing midline shift 4 mm to the right on current study. Acute on sample steamer lilia paranasal sinus disease redemonstrated.
[2020-02-07 16:28] VITALS: RESP 20
[2020-02-07 16:29] VITALS: BP 165/79; PULSE 84
--- NOTE | 2020-02-08 06:13 | CONS ---
CONSULTATION REASON FOR CONSULTATION: Advice regarding subdural hygroma and other medical issues requested by the ER physician. HISTORY OF PRESENT ILLNESS: This 74-year-old gentleman with a past medical history of multiple medical problems including history of diabetes, insomnia, bipolar history, remote history EtOH, smoking, depression, bipolar, being followed by Dr. Alex Hardin in the outpatient setting was recently admitted to [facility] on multiple occasions. Apparently the brother is taking care of him. The patient had bilateral subdural hygroma and apparently the patient is supposed to be transferred according to the brother, but transfer never occurred probably during the COVID. The patient was rather stable but took a turn for the worse over the past 2 days. The patient is having increasing falls, memory difficulties and behavioral changes and the brother was concerned and taken the patient to [facility] and admitted for further evaluation and treatment. A CT scan showed some resolution of the hygroma on the left side, but on the right side 4 mm increase in the hygroma with some midline shift and flattening of the ventricle. The patient will be closely monitored at this time. The patient unable to give a coherent history even though patient is conscious. Most of the history is taken from my discussion with staff, discussion with the ER physician, discussion with the brother at bedside. The patient is followed by Dr. Alex Hardin in the outpatient setting. The patient also reports history of multiple falls. PAST MEDICAL HISTORY: History of diabetes, insomnia, bipolar, remote EtOH, smoking, depression. MEDICATIONS: Home medications are: 1. Verapamil SR 120 mg p.o. at bedtime. 2. Calan 120 mg p.o. daily. 3. Flomax 0.8 at bedtime. 4. Seroquel 25 mg at bedtime. 5. Metamucil 6 grams p.o. b.i.d. 6. Proctocort 1 application b.i.d. 7. Prilosec 20 mg b.i.d. 8. Habitrol 14 daily. 9. Melatonin 5 mg at bedtime p.r.n. 10.[place] 300 mg at bedtime. 11.NovoLog q.i.d. 12.[place] q.8 p.r.n. 13.Ensure 1 p.o. b.i.d. 14.Cymbalta 30 mg daily. 15.Santyl 1 application daily p.r.n. 16.Biotene 15 mL q.4 p.r.n. 17.Tylenol 650 q.6 p.r.n. 18.Xanax 0.25 t.i.d. p.r.n. ALLERGIES: None. FAMILY HISTORY, SOCIAL HISTORY, REVIEW OF SYSTEMS: Could not be taken because of the patient's change in mental status. History of smoking as mentioned. Alcohol history as mentioned earlier. PHYSICAL EXAMINATION: The patient is conscious, disoriented. Pulse 62, blood pressure 173/74, respirations 16, temperature 97.5, pulse ox 96% on room air. HEENT: Conjunctivae normal. Oral mucosa moist. NECK: No jugular venous distention. No carotid bruit. No lymph node enlargement. CARDIOVASCULAR: S1, S2 muffled. No S3, no S4. RESPIRATORY: Breath sounds diminished at the bases. A few scattered rhonchi. No crackles. ABDOMEN: Soft, nontender. No mass palpable. LEGS: No edema, no swelling. NERVOUS SYSTEM: Diffusely weak. SKIN: No ulcer, rash or bleeding. JOINTS: No active deforming arthropathy. LABS: WBC 5.6, hemoglobin 13.5 sodium 136, potassium 4.5 and glucose 147. Alcohol less than 10. CT scan reviewed from the current CT scan as well as previous CT scan also. ASSESSMENT: 1. Change in mental status, possibly secondary to acute on chronic subdural hygroma, mainly on the right side. 2. History of bilateral subdural hygromas. 3. Change in mental status metabolic toxic encephalopathy. 4. Hyponatremia. 5. History of EtOH. 6. Diabetes mellitus type 2. 7. History of insomnia. 8. History of bipolar. 9. History of depression. 10.History of nicotine dependence. 11.Severe protein calorie malnutrition with body mass index of 16.4. 12.FULL CODE. RECOMMENDATIONS AND DISCUSSION: This 74-year-old gentleman who presented with multiple medical issues, appears to have the subdural hygroma increased in size on right side. I would recommend a neurology consultation, possible neurosurgical evaluation. The patient may be transferred for that purpose. Otherwise, the prognosis remains guarded and as mentioned earlier the CT scans are reviewed and discussed at length with the brother at the bedside and also the ER physician and I would recommend resume the rest of medications. Avoid anticoagulation. Continue to monitor and continue to follow up with Dr. Hardin also. Prognosis guarded. Further recommendations to follow. MMODL / IJN: [id number] /
== END 2020-02-07 16:31 | disposition other institution (70) ==
LOC: EC 13:57
DX: G96.0 Cerebrospinal fluid leak (principal); E11.9 Type 2 diabetes mellitus without complications; F31.9 Bipolar disorder, unspecified; G47.00 Insomnia, unspecified; F17.200 Nicotine dependence, unspecified, uncomplicated; Z79.899 Other long term (current) drug therapy; Z79.4 Long term (current) use of insulin
CPT/HCPCS: 36415; 93005; 80053; 82140; 80178; 84484; 85025; 85610; 85730; 81003; 71046; 70450; 99285; 96360; 96361; G0480; 80320